=== PATIENT | male | born 1950 | race Caucasian/White ===

== ENCOUNTER 2017-10-04 14:38 | Inpatient (IN) | payer MEDICARE, OTHER ==
[~2017-10-04] VITALS: Ht 167.6 cm; Wt 73.2 kg
[~2017-10-04 14:38] MED LIST: ASPI81 PO; CORE25TA PO; DIGO0.12 PO; ENAL5TAB PO; LORA0.5T PO; PRAZ1 PO; QUET25 PO; SIMV20TA PO; TRAZ50TA4 PO; ZOLO50TA PO; [UNRECOGNIZED DRUG - CODE] PO
[2017-10-04 15:05] VITALS: BP 145/70; PULSE 104; RESP 18; TEMP 97.5; O2SAT 100
[2017-10-04 15:31] VITALS: BP 145/70; PULSE 104; RESP 18; TEMP 97.5; O2SAT 100
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
[2017-10-04 16:30] LABS: BASOPHIL # 0.1 TH/MM3 (0-0.2); BASOPHIL % 0.3 % (0.0-2.0); EOSINOPHIL % 0.1 % (0.0-4.0); HEMATOCRIT 35.9 % (39.0-51.0); LYMPH % 5.7 % (9.0-44.0); MEAN CELL VOLUME 88.7 FL (80.0-100.0); MEAN CORPUSCULAR HEMOGLOBIN 28.5 PG (27.0-34.0); MEAN CORPUSCULAR HGB CONC 32.1 % (32.0-36.0); MONO % 5.3 % (0.0-8.0); NEUT % 88.6 % (16.0-70.0); PLATELET COUNT 311 TH/MM3 (150-450); RED BLOOD COUNT 4.04 MIL/MM3 (4.50-5.90); RED CELL DISTRIBUTION WIDTH 16.6 % (11.6-17.2); WHITE BLOOD COUNT 16.9 TH/MM3 (4.0-11.0)
[2017-10-04 16:32] LABS: BACTERIA, URINE MANY /hpf; BLOOD, URINE SMALL (NEG); COMMENT (UR) CULTURE INDICATED; CULTURE IF INDICATED CULTURE INDICATED; GLUCOSE,URINE NEG (NEG); KETONE, URINE NEG (NEG); MUCUS URINE FEW /lpf (OCC); NITRITE,URINE NEG (NEG); PH, URINE 6.5 (5.0-8.5); URINE COLOR LIGHT-YELLOW (YELLW/STRAW)
[2017-10-04 16:33] LABS: HEMO FLAGS AUTO DIFF
[2017-10-04 16:40] LABS: ALKALINE PHOSPHATASE 137 U/L (45-117); ALT (GPT) 18 U/L (12-78); TOTAL BILIRUBIN ADULT 0.3 MG/DL (0.2-1.0)
[2017-10-04 16:46] LABS: ANION GAP 11 MEQ/L (5-15); AST (GOT) 19 U/L (15-37); BLOOD UREA NITROGEN 98 MG/DL (7-18); CHLORIDE 112 MEQ/L (98-107); GLOMERULAR FILTRATION RATE 14 ML/MIN (>89); POTASSIUM 5.8 MEQ/L (3.5-5.1); SODIUM (NA) 132 MEQ/L (136-145)
[2017-10-04 16:47] LABS: ALCOHOL LESS THAN 3 MG/DL (0-5)
[2017-10-04 17:04] LABS: BANDS 2 % (0-6); DOHLE BODIES PRESENT (NONE SEEN); NEUTROPHIL # MANUAL DIFF 15.4 TH/MM3 (1.8-7.7); PLATELET ESTIMATE SMEAR NORMAL (NORMAL); PLATELET MORPHOLOGY NORMAL (NORMAL); POLYS (SEG NEUTROPHILS) 89 % (16-70); SCAN/DIFF FINAL DIFF MANUAL; WBC DIFF SAMPLE 100
[2017-10-04] MEDS ORDERED: LEVOFLOXACIN 750 MG PREMIX INJ 150 ML IV ONE (17:15)
[2017-10-04] MEDS ORDERED: FOLI1TAB6 PO (17:18)
[2017-10-04] MEDS ORDERED: LIPI80TA PO (17:18)
[2017-10-04] MEDS ORDERED: [UNRECOGNIZED DRUG - CODE] TOPICAL (17:18)
[2017-10-04] MEDS ORDERED: VENTAER INH (17:18)
[2017-10-04] MEDS ORDERED: SYNT175T PO (17:18)
[2017-10-04] MEDS ORDERED: VITA100018 PO (17:18)
[2017-10-04] MEDS ORDERED: LANO0.12 PO (17:18)
[2017-10-04] MEDS ORDERED: NOVOINJ3 SQ (17:18)
[2017-10-04] MEDS ORDERED: METO-309 PO (17:18)
[2017-10-04] MEDS ORDERED: LANTUS2P SQ (17:18)
[2017-10-04] MEDS ORDERED: ASPI-183 PO (17:18)
[2017-10-04] MEDS ORDERED: SODIUM CHLORID 0.9% 500 ML INJ 500 ML IV ONE (18:00)
[2017-10-04] MEDS ORDERED: RESP: ALBUTEROL 2.5 MG/IPRATROPIUM 0.5 MG NEB (PRN) NEB (18:45)
[2017-10-04 18:56] VITALS: BP 129/76
[2017-10-04 19:00] VITALS: BP 129/60; PULSE 112; RESP 20; TEMP 97.4; O2SAT 100
--- NOTE | 2017-10-04 19:02 | RADRPT ---
EXAM DATE/TIME: 10/04/2017 17:47 [facility] COMPARISON: No previous studies available for comparison. INDICATIONS : Short of breath. MEDICAL HISTORY : unobtainable SURGICAL HISTORY : unobtainable ENCOUNTER: Initial ACUITY: 1 day PAIN SCORE: Non-responsive. LOCATION: Bilateral chest FINDINGS: A single view of the chest demonstrates the lungs to be symmetrically aerated without evidence of mas s, infiltrate or effusion. The cardiomediastinal contours are unremarkable. Osseous structures are intact. CONCLUSION: No acute disease. Andrea Roman MD on October 04, 2017 at 19:00 Board Certified Radiologist. This report was verified electronically.
[2017-10-04] MEDS ORDERED: SODIUM POLYSTYRENE SULFONATE 30 GM/120 ML ENEMA RECTAL ONE (19:18)
[2017-10-04] MEDS: INSULIN ASPART SUPPLEMENTAL SCALE SQ SCH (21:00)
[2017-10-04] MEDS: METOPROLOL TARTRATE 25 MG TAB PO SCH ×2 (21:00→23:39)
[2017-10-04 22:00] VITALS: PULSE 114
[2017-10-04] MEDS ORDERED: CALCIUM CHLORIDE 10% SOLN 1 GRAM/10 ML SYR IV PUSH ONE (22:15)
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
[2017-10-04] MEDS: SODIUM CHLORIDE 0.9% FLUSH 10 ML FLUSH IV FLUSH SCH (23:38)
[2017-10-04] MEDS: HEPARIN SODIUM - SQ 10,000 UNITS/ML VIAL SQ SCH (23:39)
[2017-10-05] VITALS (9 sets, daily range): BP systolic 110–141; BP diastolic 53–64; PULSE 96–115; RESP 17–20; TEMP 97.1–99.1; O2SAT 99–100
[2017-10-05] MEDS: SODIUM CHLOR 0.9% 1000 ML INJ 1,000 ML IV SCH ×3 (02:56→18:12)
[2017-10-05 03:10] LABS: AUTOMATED NEUTROPHIL # 11.1 TH/MM3 (1.8-7.7); BASOPHIL % 0.4 % (0.0-2.0); EOSINOPHIL % 0.2 % (0.0-4.0); HEMATOCRIT 30.8 % (39.0-51.0); HEMO FLAGS DIFF FINAL; LYMPH % 6.8 % (9.0-44.0); LYMPHOCYTE # 0.9 TH/MM3 (1.0-4.8); MEAN CELL VOLUME 88.2 FL (80.0-100.0); MEAN CORPUSCULAR HEMOGLOBIN 28.4 PG (27.0-34.0); MEAN CORPUSCULAR HGB CONC 32.2 % (32.0-36.0); MONO % 8.2 % (0.0-8.0); NEUT % 84.4 % (16.0-70.0); PLATELET COUNT 292 TH/MM3 (150-450); RED BLOOD COUNT 3.49 MIL/MM3 (4.50-5.90); RED CELL DISTRIBUTION WIDTH 16.3 % (11.6-17.2); WHITE BLOOD COUNT 13.1 TH/MM3 (4.0-11.0)
[2017-10-05 03:35] LABS: ALKALINE PHOSPHATASE 128 U/L (45-117); ALT (GPT) 17 U/L (12-78); ANION GAP 14 MEQ/L (5-15); AST (GOT) 10 U/L (15-37); BICARBONATE 8.9 MEQ/L (21.0-32.0); BLOOD UREA NITROGEN 107 MG/DL (7-18); CHLORIDE 115 MEQ/L (98-107); GLOMERULAR FILTRATION RATE 14 ML/MIN (>89); POTASSIUM 4.9 MEQ/L (3.5-5.1); SODIUM (NA) 138 MEQ/L (136-145); TOTAL BILIRUBIN ADULT 0.1 MG/DL (0.2-1.0)
--- NOTE | 2017-10-05 04:53 | EKG ---
Date Performed: 10/04/2017 Time Performed: 22:41:01 PTAGE: 67 years EKG: SINUS TACHYCARDIA ANTEROSEPTAL MYOCARDIAL INFARCTION , OF INDETERMINATE AGE ABNORMAL ECG Co mpared to prior electrocardiogram, Sinus tachycardia is now present PREVIOUS TRACING : 05/15/2014 11.01 DOCTOR: Aditya Zamora Interpretating Date/Time 10/05/2017 04:52:12
[2017-10-05] MEDS: INSULIN ASPART SUPPLEMENTAL SCALE SQ SCH ×4 (08:00→22:38)
[2017-10-05] MEDS: SODIUM CHLORIDE 0.9% FLUSH 10 ML FLUSH IV FLUSH SCH ×2 (09:00→21:00)
[2017-10-05] MEDS ORDERED: SODIUM CHLORID 0.9% 500 ML INJ 500 ML IV ONE (09:45)
[2017-10-05] MEDS: DIGOXIN 0.125 MG TAB PO SCH (10:16)
[2017-10-05] MEDS: METOPROLOL TARTRATE 25 MG TAB PO SCH ×2 (10:16→22:37)
[2017-10-05] MEDS: ASPIRIN 325 MG TAB PO SCH (10:16)
[2017-10-05] MEDS: HEPARIN SODIUM - SQ 10,000 UNITS/ML VIAL SQ SCH ×2 (10:16→22:37)
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
--- NOTE | 2017-10-05 11:29 | RADRPT ---
EXAM DATE/TIME: 10/05/2017 11:03 [place] COMPARISON: No previous studies available for comparison. EXTERNAL COMPARISON : [facility], CT ABDOMEN & PELVIS, March 25, 2015 INDICATIONS : Increased BUN/Creatinine. MEDICAL HISTORY : Hypothyroidism. Hypercholesterolemia. Chronic obstructive pulmonary disease. Dementia. Syncope. Myoca rdial infarction. Congestive heart failure. Irregular heartbeat. Hypertension. Sleep apnea. Kidney st ones. Bipolar disorder. Depression. Anxiety. PTSD. Herniated disc. Diabetes. Bladder cancer. Measles. SURGICAL HISTORY : Colostomy. Urostomy. ENCOUNTER: Initial ACUITY: 1 day PAIN SCORE: 0/10 LOCATION: Bilateral flank MEASUREMENTS: RIGHT KIDNEY: 11.6 x 5.2 x 5.8 cm LEFT KIDNEY: Nonvisualized cm FINDINGS: RIGHT KIDNEY: Renal cortex is normal in thickness and echotexture. No hydronephrosis, stone, or mass. LEFT KIDNEY: Nonvisualized potentially for technical reasons. BLADDER: Nonvisualized CONCLUSION: Nonvisualized left kidney potentially for technical reasons. No hydronephrosis on the right Yasir Garza MD on October 05, 2017 at 11:23 Board Certified Radiologist. This report was verified electronically.
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
[2017-10-05 17:05] LABS: HEMOGLOBIN A1a 1.4 %; HEMOGLOBIN A1b 0.9 %; HEMOGLOBIN Ao 78.6 %; HEMOGLOBIN F 1.4 %; HEMOGLOBIN LA1C 2.9 %; HEMOGLOBIN P3 6.9 %
--- NOTE | 2017-10-05 19:53 | PD.CONS ---
HPI Service Nephrology Consult Requested By Dr. Manzo Reason for Consult Acute renal failure on chronic kidney [facility] Care Phys[facility] History of Present Illness Patient is a 67-year-old male with history of bladder cancer status post cystectomy and urostomy, previous colostomy who has been Nieto acted then admitted to because of threatening behavior, patient had been hydrated ultrasound was ordered which did not showed left kidney the right kidney has no hydronephrosis and creatinine around 1.6 and currently at 4.23, patient is a poor historian he speaks Cypriot, I spoke to staff and usually he does speak Cymraes at times do not make sense, for tonight he will appear to be confused, could not tell me his age. Review of Systems ROS Limitations: Clinical Condition Past Family Social History Allergies: Coded Allergies: No Known Allergies (Verified Adverse Reaction, Unknown, 10/04/17) Past Medical History DM CAD s/p multi-vessel stenting chronic renal insufficiency CHF COPD colonic polyps s/p colectomy bladder cancer s/p cystectomy per EMR a history of dementia Cardiomyopathy Past Surgical History Colectomy Cystectomy Multivessel stenting Reported Medications Reported Meds & Active Scripts Active Reported Folic Acid 1 Mg Tablet 1 Mg PO DAILY Vitamin D3 (Cholecalciferol) 1,000 Unit Tab 2,000 Units PO DAILY Lipitor (Atorvastatin Calcium) 80 Mg Tab 40 Mg PO HS Ventolin Hfa 18 GM Inh (Albuterol Sulfate) 90 Mcg/Act Aer 1 Puff INH QID PRN Lantus Inj (Insulin Glargine) 1,000 Unit/10 Ml Vial 52 Units SQ BID Novolog Flexpen Inj (Insulin Aspart) 300 Unit/3 Ml Pen 35 Units SQ TID PRN Lopressor (Metoprolol Tartrate) 50 Mg Tab 25 Mg PO BID Lanoxin (Digoxin) 125 Mcg Tablet 125 Mcg PO DAILY Moisturizing Lotion (Vit E Acet/Glycerin/Dimeth/H2o) 473 Ml Lotion 1 Applic TOPICAL BID PRN Synthroid (Levothyroxine Sodium) 175 Mcg Tab 175 Mcg PO DAILY Take on empty stomach Aspirin 325 Mg Tab 325 Mg PO DAILY Active Ordered Medications Current Medications Medications (Trade) Dose Ordered Sig/[place]iena Route Start Time Stop Time Status Last Admin (Aspirin) 325 mg DAILY PO 10/05/17 09:00 10/05/17 10:16 (Lanoxin) 0.125 mg DAILY PO 10/05/17 09:00 10/05/17 10:16 (Lopressor) 25 mg BID PO 10/04/17 21:00 10/05/17 10:16 Sodium Chloride 1,000 ml @ 150 mls/hr Q6H40M IV 10/04/17 18:30 10/05/17 18:12 (NS Flush) 2 ml UNSCH PRN IV FLUSH 10/04/17 18:30 (NS Flush) 2 ml BID IV FLUSH 10/04/17 21:00 10/04/17 23:38 (Heparin Inj) 5,000 units Q12HR SQ 10/04/17 21:00 10/05/17 10:16 (Duoneb Neb) 1 ampule Q4HR NEB PRN NEB 10/04/17 18:45 (NovoLOG SUPPLEMENTAL SCALE) 1 ACHS SLIDING SCALE SQ 10/04/17 21:00 10/05/17 18:08 Levofloxacin/ Dextrose 50 ml @ 50 mls/hr Q48H IV 10/06/17 18:00 (Haldol Inj) 2 mg Q8H PRN IM 10/05/17 13:30 Family History Noncontributory Social History Not obtained Physical Exam Vital Signs Vital Signs Date Time Temp Pulse Resp B/P (MAP) Pulse Ox O2 Delivery O2 Flow Rate FiO2 10/05/17 15:58 98.0 99 17 110/55 (73) 99 10/05/17 12:30 96 10/05/17 12:00 99.1 107 17 133/59 (83) 99 10/05/17 08:19 97.1 112 19 141/62 (88) 99 10/05/17 08:00 115 10/05/17 07:30 Room Air 10/05/17 04:00 97.7 109 20 136/57 (83) 100 10/05/17 00:00 114 10/05/17 00:00 98.6 114 20 139/64 (89) 100 10/04/17 22:00 114 10/04/17 20:00 Room Air Physical Exam GENERAL: Elderly male who's appears confused and dry mouth SKIN: Warm and dry. HEAD: Normocephalic. EYES: No scleral icterus. No injection or drainage. NECK: Supple, trachea midline. No JVD or lymphadenopathy. CARDIOVASCULAR: Regular RESPIRATORY: Breath sounds equal bilaterally. No accessory muscle use. GASTROINTESTINAL: Abdomen soft, urostomy and colostomy bags EXTREMITIES: No cyanosis, or edema. NEUROLOGICAL: Awake, confused Laboratory Laboratory Tests Test 10/05/17 02:57 White Blood Count 13.1 Red Blood Count 3.49 Hemoglobin 9.9 Hematocrit 30.8 Mean Corpuscular Volume 88.2 Mean Corpuscular Hemoglobin 28.4 Mean Corpuscular Hemoglobin Concent 32.2 Red Cell Distribution Width 16.3 Platelet Count 292 Mean Platelet Volume 6.6 Neutrophils (%) (Auto) 84.4 Lymphocytes (%) (Auto) 6.8 Monocytes (%) (Auto) 8.2 Eosinophils (%) (Auto) 0.2 Basophils (%) (Auto) 0.4 Neutrophils # (Auto) 11.1 Lymphocytes # (Auto) 0.9 Monocytes # (Auto) 1.1 Eosinophils # (Auto) 0.0 Basophils # (Auto) 0.0 CBC Comment DIFF FINAL Differential Comment Blood Urea Nitrogen 109 Creatinine 4.23 Random Glucose 220 Calcium Level 9.0 Sodium Level 139 Potassium Level 4.9 Chloride Level 116 Carbon Dioxide Level 9.0 Total Protein 8.9 Albumin 2.9 Alkaline Phosphatase 128 Aspartate Amino Transf (AST/SGOT) 10 Alanine Aminotransferase (ALT/SGPT) 17 Total Bilirubin 0.1 Anion Gap 14 Estimat Glomerular Filtration Rate 14 Lactic Acid Level 0.8 Date/Time Source Procedure Growth Status 10/04/17 15:20 Urine Random Urine Urine Culture - Preliminary Gram Negative Tavo Resulted Result Diagram: 10/05/17 0257 10/05/17 0257 Imaging Last Impressions Renal Ultrasound 10/05/17 0000 Signed Impressions: Service Date/Time: Thursday, October 05, 2017 11:03 - CONCLUSION: Nonvisualized left kidney potentially for technical reasons. No hydronephrosis on the right Yasir Garza MD Chest X-Ray 10/04/17 0000 Signed Impressions: Service Date/Time: Wednesday, October 04, 2017 17:47 - CONCLUSION: No acute disease. Andrea Roman MD Assessment and Plan Problem List: (1) Acute on chronic renal insufficiency ICD Codes: N28.9 - Disorder of kidney and ureter, unspecified; N18.9 - Chronic kidney disease, unspecified Status: Acute Plan: Patient appears to be dehydrated and confused. I will switch the IV fluid to sodium bicarbonate based solutions IV fluid half normal saline with 100 mEq of sodium bicarbonate 150 cc an hour Follow BMP Continue to monitor urine output (2) Dementia ICD Codes: F03.90 - Unspecified dementia without behavioral disturbance Status: Chronic (3) Hyperchloremic metabolic acidosis ICD Codes: E87.2 - Acidosis Plan: Patient has urostomy and colostomy is losing bicarbonate and kidneys are trying to conserve acid-base balance by excreting hydrogen Ions in exchange chloride history observed Problem Qualifiers (1) Dementia: Brooks Bob MD Oct 05, 2017 19:53
[2017-10-05] MEDS: SODIUM BICARBONATE 8.4% INJ 100 MEQ in SODIUM CHLOR 0.45% 1000 ML INJ 1,000 ML IV SCH (23:04)
[2017-10-06] VITALS (13 sets, daily range): BP systolic 117–141; BP diastolic 56–63; PULSE 81–113; RESP 18–20; TEMP 97.8–98.9; O2SAT 99–100
[2017-10-06] MEDS: SODIUM BICARBONATE 8.4% INJ 100 MEQ in SODIUM CHLOR 0.45% 1000 ML INJ 1,000 ML IV SCH ×4 (05:49→23:37)
[2017-10-06 08:05] LABS: BASOPHIL % 0.5 % (0.0-2.0); EOSINOPHIL % 0.3 % (0.0-4.0); HEMATOCRIT 25.7 % (39.0-51.0); HEMO FLAGS DIFF FINAL; LYMPH % 9.5 % (9.0-44.0); LYMPHOCYTE # 0.8 TH/MM3 (1.0-4.8); MEAN CELL VOLUME 88.7 FL (80.0-100.0); MEAN CORPUSCULAR HEMOGLOBIN 30.6 PG (27.0-34.0); MEAN CORPUSCULAR HGB CONC 34.5 % (32.0-36.0); MONO % 11.6 % (0.0-8.0); NEUT % 78.1 % (16.0-70.0); PLATELET COUNT 228 TH/MM3 (150-450); RED CELL DISTRIBUTION WIDTH 16.5 % (11.6-17.2); WHITE BLOOD COUNT 8.9 TH/MM3 (4.0-11.0)
[2017-10-06 08:19] LABS: ALT (GPT) 13 U/L (12-78); ANION GAP 13 MEQ/L (5-15); AST (GOT) 9 U/L (15-37); BICARBONATE 9.2 MEQ/L (21.0-32.0); BLOOD UREA NITROGEN 108 MG/DL (7-18); CHLORIDE 123 MEQ/L (98-107); GLOMERULAR FILTRATION RATE 13 ML/MIN (>89); POTASSIUM 4.1 MEQ/L (3.5-5.1); SODIUM (NA) 145 MEQ/L (136-145)
[2017-10-06 08:20] LABS: ALKALINE PHOSPHATASE 102 U/L (45-117); TOTAL BILIRUBIN ADULT 0.2 MG/DL (0.2-1.0)
[2017-10-06] MEDS: HEPARIN SODIUM - SQ 10,000 UNITS/ML VIAL SQ SCH ×2 (09:11→20:33)
[2017-10-06] MEDS: SODIUM CHLORIDE 0.9% FLUSH 10 ML FLUSH IV FLUSH SCH ×2 (09:11→20:33)
[2017-10-06] MEDS: ASPIRIN 325 MG TAB PO SCH (09:11)
[2017-10-06] MEDS: METOPROLOL TARTRATE 25 MG TAB PO SCH ×2 (09:12→20:32)
[2017-10-06] MEDS: DIGOXIN 0.125 MG TAB PO SCH (09:12)
[2017-10-06] MEDS: INSULIN ASPART SUPPLEMENTAL SCALE SQ SCH ×4 (09:12→20:33)
--- NOTE | 2017-10-06 11:40 | HHI.FPPN ---
Subjective Remarks No acute events overnight. Remains afebrile. BP stable. HR ranging 110s-110s. Total input 2100cc. 1300 UOP + additional 700cc output from ostomy. Patient remains oriented only to self. He is able to answer some basic questions , but is often confabulating. Appears in no apparent distress. No agitation. (Sukhjinder Hamilton MD R2) Objective Vitals Vital Signs Date Time Temp Pulse Resp B/P (MAP) Pulse Ox O2 Delivery O2 Flow Rate FiO2 10/06/17 06:18 97.8 107 18 124/57 (79) 100 10/06/17 04:00 106 10/06/17 04:00 Room Air 10/06/17 00:10 98.3 113 18 141/60 (87) 100 10/06/17 00:00 Room Air 10/06/17 00:00 113 10/05/17 21:00 97.7 108 18 111/53 (72) 99 10/05/17 20:00 103 10/05/17 20:00 Room Air 10/05/17 15:58 98.0 99 17 110/55 (73) 99 10/05/17 12:30 96 10/05/17 12:00 99.1 107 17 133/59 (83) 99 I/O 10/05/17 10/05/17 10/05/17 10/06/17 10/06/17 10/06/17 07:00 15:00 23:00 07:00 15:00 23:00 Intake Total 640 ml 500 ml 1480 ml 120 ml Output Total 700 ml 400 ml 950 ml 650 ml Balance -60 ml 100 ml 530 ml -530 ml Intake Oral 480 ml 120 ml IV Total 640 ml 500 ml 1000 ml Output Urine Total 500 ml 650 ml 650 ml Stool Total 200 ml 400 ml 300 ml # Bowel Movements 1 (Sukhjinder Hamilton MD R2) Result Diagram: 10/06/1718 10/06/1718 Objective Remarks GENERAL: NAD, awake, not agitated NEURO: Alert. Oriented to self, disoriented to place and time. Speech is clear. sponge clipper grossly intact. Moving all extremities. SKIN: Warm and dry. No rashes or erythema. HEAD: Normocephalic. Atraumatic. EYES: EOMI. No scleral icterus. No injection or drainage. ENT: No nasal drainage. Moist mucous membranes. NECK: Supple, trachea midline. No JVD. CARDIOVASCULAR: Regular rate and rhythm without murmurs, rubs, or gallops. Peripheral pulses 2+. RESPIRATORY: Breath sounds clear to auscultation and equal bilaterally, without wheezes, rales, or rhonchi. No accessory muscle use. GASTROINTESTINAL: Abdomen soft, nontender, protuberant. No rebound tenderness. No guarding. Ostomy and urine output bag in place. MUSCULOSKELETAL: No lower extremity edema. (Sukhjinder Hamilton MD R2) A/P Assessment and Plan 67-year-old man admitted under Nieto act after reportedly displaying aggressive behavior towards his family. He is also being managed for sepsis due to a urinary tract infection as well as chronic renal insufficiency. Discharge Planning Discharge pending removal of Nieto act per psychiatry Awaiting further workup as documented below for chronic renal insufficiency Unclear timetable at this time (Sukhjinder Hamilton MD R2) Attending Attestation Patient seen and examined. Case reviewed and discussed with the resident team. Agree with plan of care as discussed with me and documented in the resident note. (Shima Manzo MD) Problem List: (1) Sepsis ICD Codes: A41.9 - Sepsis, unspecified organism Status: Acute Plan: Patient met criteria for sepsis on admission with elevated pulse and leukocytosis Source due to a urinary tract infection Lactate 0.8 s/p 500 cc NS bolus in the ED IVF switched to sodium bicarb at 150 cc/hr per nephrology recommendations (2) UTI (urinary tract infection) ICD Codes: N39.0 - Urinary tract infection, site not specified Status: Acute Plan: Large leuk esterase, many bacteria, 138 WBC, no comment on squam cells Urine culture growing > 100,000 col of both E. coli and Klebsiella, both pineda- sensitive Patient given dose of Levaquin 750 mg IV in the ED (first dose given 10/04) Will continue with renally dosed Levaquin 250 mg IV q48h based on the patients GFR for a total of 10-14 days (3) Acute on chronic renal insufficiency ICD Codes: N28.9 - Disorder of kidney and ureter, unspecified; N18.9 - Chronic kidney disease, unspecified Status: Acute Plan: Cr 4.14 on admission, baseline may be around 1.70 Possibly acute on chronic due to prerenal due to dehydration versus diabetic nephropathy vs intrinsic renal pathology, but urine specific gravity was 1.01 IV fluid hydration as above Avoid nephrotoxins as able Monitor I/Os Continue to trend renal function Nephrology consulted, appreciate recommendations Renal ultrasound with nonvisualized left kidney potentially for technical reasons. No hydronephrosis of the right kidney Will obtain abdomen/pelvis CT without contrast for further visualization Patient may be a candidate for dialysis, nephrology on board (4) Anemia ICD Codes: D64.9 - Anemia, unspecified Status: Acute Plan: Hgb 11.5 on admission, downtrending to 9.9 -> 8.9 today Normocytic May be a delusional component Chronic anemia may be due to ineffective hematopoiesis given chronic renal insufficiency Will continue to trend, work-up if Hgb continues to drop as further delusional anemia is unlikely (5) Dementia ICD Codes: F03.90 - Unspecified dementia without behavioral disturbance Status: Chronic Plan: Per discussion with Dr. Ragland, altered mental status from baseline may have been due to urosepsis Nieto act has been lifted Continue Haldol 2 mg IM q8h if needed for severe agitation (6) Hyperkalemia ICD Codes: E87.5 - Hyperkalemia Status: Resolved Plan: K+ 5.8 on admission Placed order for Kayexalate enema 30 g Calcium chloride 0.5 g IV once given Potassium now normalized, continue to monitor (7) Hyponatremia ICD Codes: E87.1 - Hypo-osmolality and hyponatremia Status: Resolved Plan: Normalized Continue to monitor (8) Nutrition, metabolism, and development symptoms ICD Codes: R63.8 - Other symptoms and signs concerning food and fluid intake Status: Acute Plan: Fluids: Na bicard as above Electrolytes: plan as above, continue to monitor Nutrition: Regular diet DVT ppx: Heparin 5,000 units sq q12h (Sukhjinder Hamilton MD R2) Problem Qualifiers (1) Dementia: Sukhjinder Hamilton MD R2 Oct 06, 2017 11:39 Shima Manzo MD Oct 07, 2017 09:03
--- NOTE | 2017-10-06 12:48 | HHI.PYPN ---
Subjective Remarks The patient is seen today for psychiatric reevaluation. Patient is alert, awake , reports good mood, he is in a good spirits, but pleasantly confused, unable to lay any meaningful information. Patient says that "you look like my son, do you know my son, do you study with him?". Patient started to speak in Ecuadorean, I tried to engaging him a conversation in Ecuadorean, the patient became tangential , out of topic, using mostly confabulatory information. No agitation, no aggressive behavior observed or have been reported since the patient arrived in the hospital. He has been taking his medications, cooperative, calm. Review of Systems Except as stated in HPI: all other systems reviewed are Neg Mental Status Examination Consciousness: Alert Orientation: Person Speech: Hesitant, Slow Language: Adequate Attention and Concentration: Adequate Memory: Impaired Affect: Blunt Thought Content: Bizarre thinking Hallucination Type: None Suicidal Ideation: No Suicidal Plan: No Suicidal Intention: No Homicidal Ideation: No Homicidal Plan: No Homicidal Intention: No Insight: Poor Judgment: Poor Results Labs Test 10/06/17 07:18 White Blood Count 8.9 TH/MM3 Red Blood Count 2.90 MIL/MM3 Hemoglobin 8.9 GM/DL Hematocrit 25.7 % Mean Corpuscular Volume 88.7 FL Mean Corpuscular Hemoglobin 30.6 PG Mean Corpuscular Hemoglobin Concent 34.5 % Red Cell Distribution Width 16.5 % Platelet Count 228 TH/MM3 Mean Platelet Volume 6.7 FL Neutrophils (%) (Auto) 78.1 % Lymphocytes (%) (Auto) 9.5 % Monocytes (%) (Auto) 11.6 % Eosinophils (%) (Auto) 0.3 % Basophils (%) (Auto) 0.5 % Neutrophils # (Auto) 7.0 TH/MM3 Lymphocytes # (Auto) 0.8 TH/MM3 Monocytes # (Auto) 1.0 TH/MM3 Eosinophils # (Auto) 0.0 TH/MM3 Basophils # (Auto) 0.0 TH/MM3 CBC Comment DIFF FINAL Differential Comment Blood Urea Nitrogen 108 MG/DL Creatinine 4.39 MG/DL Random Glucose 97 MG/DL Total Protein 7.2 GM/DL Albumin 2.4 GM/DL Calcium Level 8.6 MG/DL Alkaline Phosphatase 102 U/L Aspartate Amino Transf (AST/SGOT) 9 U/L Alanine Aminotransferase (ALT/SGPT) 13 U/L Total Bilirubin 0.2 MG/DL Sodium Level 145 MEQ/L Potassium Level 4.1 MEQ/L Chloride Level 123 MEQ/L Carbon Dioxide Level 9.2 MEQ/L Anion Gap 13 MEQ/L Estimat Glomerular Filtration Rate 13 ML/MIN Date/Time Source Procedure Growth Status 10/04/17 15:20 Urine Random Urine Urine Culture - Final Escherichia Coli Klebsiella Pneumoniae Complete Vitals/IOs Vital Signs Date Time Temp Pulse Resp B/P (MAP) Pulse Ox O2 Delivery O2 Flow Rate FiO2 10/06/17 06:18 97.8 107 18 124/57 (79) 100 10/06/17 04:00 Room Air Intake and Output 10/06/17 10/06/17 10/06/17 07:59 15:59 23:59 Intake Total 120 ml Output Total 650 ml Balance -530 ml Assessment & Plan Problem List: (1) Dementia ICD Codes: F03.90 - Unspecified dementia without behavioral disturbance Assessment & Plan Estimated LOS: days Justification for Cont. Inpt. Other than profound dementia, the patient does not present any neuropsychiatric symptoms that requires an immediate psychiatric intervention. He does not meet criteria for involuntary psychiatric admission. Nieto act will be lifted. Problem Qualifiers (1) Dementia: Leo Ragland MD Oct 06, 2017 12:47
[2017-10-06] MEDS ORDERED: LEVOFLOXACIN 250 MG PREMIX INJ 50 ML IV SCH (18:00)
--- NOTE | 2017-10-06 19:38 | HHI.NPPN ---
Subjective History of Present Illness Patient is 67-year-old male with history of urostomy and a cancer status post cystectomy not in acute renal failure Objective Data Data 10/06/17 10/07/17 19:00 07:00 Intake Total 480 ml Output Total 880 ml Balance -400 ml Intake Oral 480 ml Output Urine Total 850 ml Stool Total 30 ml Vital Signs Date Time Temp Pulse Resp B/P (MAP) Pulse Ox O2 Delivery O2 Flow Rate FiO2 10/06/17 16:00 97.8 86 18 133/63 (86) 100 10/06/17 15:59 81 10/06/17 12:06 93 10/06/17 12:00 98.3 90 18 138/62 (87) 99 10/06/17 08:15 Room Air 10/06/17 08:00 98.9 109 18 117/58 (77) 100 10/06/17 06:18 97.8 107 18 124/57 (79) 100 10/06/17 04:00 106 10/06/17 04:00 Room Air 10/06/17 00:10 98.3 113 18 141/60 (87) 100 10/06/17 00:00 Room Air 10/06/17 00:00 113 10/05/17 21:00 97.7 108 18 111/53 (72) 99 10/05/17 20:00 103 10/05/17 20:00 Room Air -: 10/06/17 0718 10/06/17 0718 Physical Exam General Appearance: Well Developed Neck Neck Exam: Neck Supple Pulmonary Resp Exam: Decreased Bases Cardiology CV Exam: Regular Gastrointestinal/Abdomen GI Exam: Soft (urostomy and colostomy in place) Extremeties Extremities Exam: No Edema Neurologic Neuro Exam: Alert Assessment/Plan Problem List: (1) Acute on chronic renal insufficiency ICD Codes: N28.9 - Disorder of kidney and ureter, unspecified; N18.9 - Chronic kidney disease, unspecified Status: Acute Plan: As discussed the use get CT scan to evaluate if there is any obstruction. Function has not improved there is a possibility of dialysis continue IV fluid half normal saline with 100 mEq of sodium bicarbonate 150 cc an hour Follow BMP Continue to monitor urine output (2) Dementia ICD Codes: F03.90 - Unspecified dementia without behavioral disturbance Status: Chronic (3) Hyperchloremic metabolic acidosis ICD Codes: E87.2 - Acidosis Plan: Patient has urostomy and colostomy is losing bicarbonate and kidneys are trying to conserve acid-base balance by excreting hydrogen Ions in exchange chloride history observed Problem Qualifiers (1) Dementia: Brooks Bob MD Oct 06, 2017 19:38
--- NOTE | 2017-10-06 20:47 | RADRPT ---
EXAM DATE/TIME: 10/06/2017 14:54 [facility] COMPARISON: No previous studies available for comparison. INDICATIONS : Generalized abdominal pain, renal failure. ORAL CONTRAST: No oral contrast ingested. RADIATION DOSE: 8.30 CTDIvol (mGy) MEDICAL HISTORY : Dementia. Cardiovascular disease. Hypertension. Bladder cancer, COPD SURGICAL HISTORY : None. ENCOUNTER: Initial ACUITY: 1 day PAIN SCALE: 5/10 LOCATION: Abdomen TECHNIQUE: Volumetric scanning of the abdomen and pelvis was performed. Using automated exposure control and adjustment of the mA and/or kV according to patient size, radiation dose was kept as low as reasonably achievable to obtain optimal diagnostic quality images. DICOM format image data is av ailable electronically for review and comparison. FINDINGS: There is a focal area of low density seen at the left lateral aspect of the spleen mago uring approximately 4.9 x 4.1 x 5.2 cm. This is nonspecific. The liver, pancreas and right adrenal gland appear normal. The left adrenal gland is not seen. The p atient appears to be status post left nephrectomy. The right kidney demonstrates mild fullness of th e renal collecting system and proximal ureter. There appears to be an ileostomy in the right lower q uadrant. The patient is status post cystectomy. The patient also has a colostomy in the left lower quadrant. Significant bowel dilatation or surrounding inflammatory change is not seen. There are sca ttered colonic diverticula present. Atherosclerotic calcifications are seen at the aorta. No aneury sm is seen. The lung bases are clear. The bony structures are unremarkable. CONCLUSION: 1. Status post cystectomy. 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 2. Absence of the left kidney. 3. Mild fullness of the right renal collecting system. 4. 5 cm low density area seen in the left lateral aspect of the spleen. This is nonspecific. This c ould represent a process such as an infarct. Neoplastic disease cannot be ruled out. Yasir Wong MD on October 06, 2017 at 20:30 Board Certified Radiologist. This report was verified electronically.
[2017-10-07] VITALS (11 sets, daily range): BP systolic 114–157; BP diastolic 56–69; PULSE 77–114; RESP 18–20; TEMP 98.5–100.3; O2SAT 99–100
[2017-10-07] MEDS: SODIUM BICARBONATE 8.4% INJ 100 MEQ in SODIUM CHLOR 0.45% 1000 ML INJ 1,000 ML IV SCH (06:55)
[2017-10-07] MEDS: DIGOXIN 0.125 MG TAB PO SCH (08:20)
[2017-10-07] MEDS: ASPIRIN 325 MG TAB PO SCH (08:20)
[2017-10-07] MEDS: METOPROLOL TARTRATE 25 MG TAB PO SCH ×2 (08:20→20:32)
[2017-10-07] MEDS: HEPARIN SODIUM - SQ 10,000 UNITS/ML VIAL SQ SCH ×2 (08:21→20:32)
[2017-10-07] MEDS: INSULIN ASPART SUPPLEMENTAL SCALE SQ SCH ×4 (08:21→20:33)
[2017-10-07] MEDS: SODIUM CHLORIDE 0.9% FLUSH 10 ML FLUSH IV FLUSH SCH ×2 (08:22→20:32)
[2017-10-07 08:44] LABS: MEAN CELL VOLUME 86.8 FL (80.0-100.0); MEAN CORPUSCULAR HEMOGLOBIN 29.5 PG (27.0-34.0); MEAN CORPUSCULAR HGB CONC 33.9 % (32.0-36.0); PLATELET COUNT 206 TH/MM3 (150-450); RED BLOOD COUNT 2.65 MIL/MM3 (4.50-5.90); RED CELL DISTRIBUTION WIDTH 16.6 % (11.6-17.2); REVIEW FLAG FINAL; WHITE BLOOD COUNT 11.5 TH/MM3 (4.0-11.0)
[2017-10-07 09:19] LABS: BICARBONATE 10.3 MEQ/L (21.0-32.0)
--- NOTE | 2017-10-07 11:55 | HHI.FPPN ---
Subjective Remarks No acute events overnight. Tmax 100.3 at 08:00 this morning. Vitals stable. 2380 cc of UOP with additional 230cc noted from ostomy. Patient awake this morning. Able to answer a few questions and follow some basic commands. Primarily still confabulating. (Sukhjinder Hamilton MD R2) Objective Vitals Vital Signs Date Time Temp Pulse Resp B/P (MAP) Pulse Ox O2 Delivery O2 Flow Rate FiO2 10/07/17 08:03 100.3 105 20 114/57 (76) 100 10/07/17 08:00 Room Air 10/07/17 07:58 109 10/07/17 04:11 114 10/07/17 04:00 Room Air 10/07/17 04:00 99.3 107 18 125/60 (81) 99 10/07/17 00:06 98.7 85 20 137/60 (85) 100 10/07/17 00:00 Room Air 10/06/17 23:30 86 10/06/17 20:35 Room Air 10/06/17 20:22 92 10/06/17 20:00 98.1 94 20 123/56 (78) 100 10/06/17 16:00 97.8 86 18 133/63 (86) 100 10/06/17 15:59 81 10/06/17 12:06 93 10/06/17 12:00 98.3 90 18 138/62 (87) 99 I/O 10/06/17 10/06/17 10/06/17 10/07/17 10/07/17 10/07/17 07:00 15:00 23:00 07:00 15:00 23:00 Intake Total 120 ml 1100 ml 530 ml 1100 ml Output Total 650 ml 880 ml 1730 ml Balance -530 ml 1100 ml -350 ml -630 ml Intake Oral 120 ml 480 ml IV Total 1100 ml 50 ml 1100 ml Output Urine Total 650 ml 850 ml 1530 ml Stool Total 30 ml 200 ml # Bowel Movements 1 (Sukhjinder Hamilton MD R2) Result Diagram: 10/07/17 0654 10/07/17 0654 Objective Remarks GENERAL: NAD, awake, not agitated NEURO: Alert. Oriented to self, disoriented to place and time. Speech is clear. pulley worker grossly intact. Moving all extremities. SKIN: Warm and dry. No rashes or erythema. HEAD: Normocephalic. Atraumatic. EYES: EOMI. No scleral icterus. No injection or drainage. ENT: No nasal drainage. Moist mucous membranes. NECK: Supple, trachea midline. No JVD. CARDIOVASCULAR: Regular rate and rhythm without murmurs, rubs, or gallops. Peripheral pulses 2+. RESPIRATORY: Breath sounds clear to auscultation and equal bilaterally, without wheezes, rales, or rhonchi. No accessory muscle use. GASTROINTESTINAL: Abdomen soft, nontender, nondistended. No rebound tenderness. No guarding. Ostomy and urine output bag in place. MUSCULOSKELETAL: No lower extremity edema. (Sukhjinder Hamilton MD R2) A/P Assessment and Plan 67-year-old man admitted under Nieto act after reportedly displaying aggressive behavior towards his family. He is also being managed for sepsis due to a urinary tract infection as well as chronic renal insufficiency. Discharge Planning Awaiting further workup, unclear timetable at this time (Sukhjinder Hamilton MD R2) Attending Attestation Patient seen and examined. Case reviewed and discussed with the resident team. Agree with plan of care as discussed with me and documented in the resident note. (Shima Manzo MD) Problem List: (1) Sepsis ICD Codes: A41.9 - Sepsis, unspecified organism Status: Acute Plan: Patient met criteria for sepsis on admission with elevated pulse and leukocytosis Source due to a urinary tract infection Lactate 0.8 s/p 500 cc NS bolus in the ED IVF switched to D5-Na bicarb per recommendations of nephrology, 150 cc/hr Repeat CXR and UA given patient with temp of 100.3, tachycardia, leukocytosis (2) UTI (urinary tract infection) ICD Codes: N39.0 - Urinary tract infection, site not specified Status: Acute Plan: Large leuk esterase, many bacteria, 138 WBC, no comment on squam cells Urine culture growing > 100,000 col of both E. coli and Klebsiella, both pineda- sensitive Patient given dose of Levaquin 750 mg IV in the ED (first dose given 10/04) Will continue with renally dosed Levaquin, transitioned to oral for dose on 10/08 with 250 mg PO q48h based on the patients GFR for a total of 10-14 days Repeat UA with culture if needed (3) Anemia ICD Codes: D64.9 - Anemia, unspecified Status: Acute Plan: Hgb 11.5 on admission, -> 9.9 -> 8.9 -> 7.8 Normocytic Consider acute GI bleed vs other acute blood loss anemia Will obtain hemoccult Consider hematology consult vs gastroenterology consult if hemoccult positive Chronic anemia may be due to ineffective hematopoiesis given chronic renal insufficiency (4) Acute on chronic renal insufficiency ICD Codes: N28.9 - Disorder of kidney and ureter, unspecified; N18.9 - Chronic kidney disease, unspecified Status: Acute Plan: Cr 4.14 on admission, baseline may be around 1.70 Possibly acute on chronic due to prerenal due to dehydration versus diabetic nephropathy vs intrinsic renal pathology, but urine specific gravity was 1.01 IV fluid hydration as above Avoid nephrotoxins as able Monitor I/Os Continue to trend renal function Nephrology consulted, appreciate recommendations Renal ultrasound with nonvisualized left kidney potentially for technical reasons. 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 Low density area in the left lateral aspect of the spleen Patient may be a candidate for dialysis, nephrology on board (5) Dementia ICD Codes: F03.90 - Unspecified dementia without behavioral disturbance Status: Chronic Plan: Per discussion with Dr. Ragland, altered mental status from baseline may have been due to urosepsis Nieto act has been lifted Continue Haldol 2 mg IM q8h if needed for severe agitation (6) Hyperkalemia ICD Codes: E87.5 - Hyperkalemia Status: Resolved Plan: K+ 5.8 on admission Potassium had normalized, now low this AM at 3.0 Will replete orally (7) Nutrition, metabolism, and development symptoms ICD Codes: R63.8 - Other symptoms and signs concerning food and fluid intake Status: Acute Plan: Fluids: sodium bicarbonate as above Electrolytes: plan as above, continue to monitor Nutrition: Regular diet DVT ppx: Heparin 5,000 units sq q12h (Sukhjinder Hamilton MD R2) Problem Qualifiers (1) Dementia: Sukhjinder Hamilton MD R2 Oct 07, 2017 11:55 Shima Manzo MD Oct 07, 2017 16:39
--- NOTE | 2017-10-07 12:27 | RADRPT ---
EXAM DATE/TIME: 10/07/2017 11:53 [facility] COMPARISON: CHEST SINGLE AP, October 04, 2017, 17:47. INDICATIONS : Short of breath. Pneumonia. MEDICAL HISTORY : Hypothyroidism. Hypercholesterolemia. Chronic obstructive pulmonary disease. Dementia. Syncope. Myoca rdial infarction. Congestive heart failure. Irregular heartbeat. Hypertension. Sleep apnea. Kidney st ones. Bipolar disorder. Depression. Anxiety. PTSD. Herniated disc. Diabetes. Bladder cancer. Measles. SURGICAL HISTORY : Colostomy. Urostomy. ENCOUNTER: Subsequent ACUITY: 4 - 6 days PAIN SCORE: 0/10 LOCATION: chest FINDINGS: A single view of the chest demonstrates the lungs to be symmetrically aerated without evidence of mas s, infiltrate or effusion. The cardiomediastinal contours are unremarkable. Osseous structures are intact. CONCLUSION: No acute disease. Chuy Penny MD FACR on October 07, 2017 at 12:25 Board Certified Radiologist. This report was verified electronically.
[2017-10-07 12:41] LABS: BACTERIA, URINE OCC /hpf; BLOOD, URINE SMALL (NEG); COMMENT (UR) CULTURE INDICATED; CULTURE IF INDICATED CULTURE INDICATED; GLUCOSE,URINE NEG (NEG); KETONE, URINE NEG (NEG); MUCUS URINE FEW /lpf (OCC); NITRITE,URINE NEG (NEG); URINE COLOR LIGHT-YELLOW (YELLW/STRAW)
[2017-10-07] MEDS: SODIUM BICARBONATE 8.4% INJ 100 MEQ in DEXTROSE 5% IN WATE 1000ML INJ 1,000 ML IV SCH ×4 (14:24→21:54)
[2017-10-07] MEDS: OCTREOTIDE INJ 50 MCG/ML AMP IV PUSH SCH ×2 (14:59→21:54)
--- NOTE | 2017-10-07 16:03 | HHI.NPPN ---
Subjective History of Present Illness Patient is 67-year-old male with history of urostomy and a cancer status post cystectomy not in acute renal failure Objective Data Data 10/07/17 10/08/17 19:00 07:00 Intake Total 1000 ml Balance 1000 ml IV Total 1000 ml Vital Signs Date Time Temp Pulse Resp B/P (MAP) Pulse Ox O2 Delivery O2 Flow Rate FiO2 10/07/17 12:07 98.5 89 20 115/56 (75) 99 10/07/17 11:33 85 10/07/17 08:03 100.3 105 20 114/57 (76) 100 10/07/17 08:00 Room Air 10/07/17 07:58 109 10/07/17 04:11 114 10/07/17 04:00 Room Air 10/07/17 04:00 99.3 107 18 125/60 (81) 99 10/07/17 00:06 98.7 85 20 137/60 (85) 100 10/07/17 00:00 Room Air 10/06/17 23:30 86 10/06/17 20:35 Room Air 10/06/17 20:22 92 10/06/17 20:00 98.1 94 20 123/56 (78) 100 -: 10/07/17 0654 10/07/17 0654 Microbiology 10/07/17 Stool Occult Blood (BERNARD) - Final, Complete HEMOCCULT POSITIVE 10/07/17 Urine Culture, Received Pending Physical Exam General Appearance: Well Developed Neck Neck Exam: Neck Supple Pulmonary Resp Exam: Decreased Bases Cardiology CV Exam: Regular Gastrointestinal/Abdomen GI Exam: Soft (urostomy and colostomy in place) Extremeties Extremities Exam: No Edema Neurologic Neuro Exam: Alert Assessment/Plan Problem List: (1) Acute on chronic renal insufficiency ICD Codes: N28.9 - Disorder of kidney and ureter, unspecified; N18.9 - Chronic kidney disease, unspecified Status: Acute Plan: Patient has output however he does have GI losses and we will try slow down using Sandostatin IV fluid switched to D5W with 150 mEq/L of sodium bicarbonate Follow BMP Continue to monitor urine output (2) Dementia ICD Codes: F03.90 - Unspecified dementia without behavioral disturbance Status: Chronic (3) Hyperchloremic metabolic acidosis ICD Codes: E87.2 - Acidosis Plan: Patient has urostomy and colostomy is losing bicarbonate Problem Qualifiers (1) Dementia: Brooks Bob MD Oct 07, 2017 16:03
--- NOTE | 2017-10-07 16:05 | PD.CONS ---
HPI History of Present Illness This is a 67 year old male with hx DM, CAD, CHF, COPD, bladder ca s/p cystectomy ,renal insufficiency, colectomy and ostomy, dementia who was fitch acted from nearby [place] [facility] and brought to [facility] for psych eval. Fitch act since lifted. GI consulted for poss GIB. Pt had hgb 11.5 on admission and has dropped to 7.8. NO obvious bleeding but stool was pos for occult blood. Hx obtained from , pt noncontributory. She denies knowledge of blood in stool, black tarry stool, hematemesis, ulcers. He had colonoscopy and EGD at a clinic in [facility] but she cannot remember when or who did procedures. Colonoscopy findings were polyps and hemorrhoids. He has had anemia since his diagnosis of bladder ca, and has received iron infusions from Dr Patricio but is unsure of timing. CT showed hypodense area spleen poss infarct. (Calli Vang) PFSH Past Medical History DM CAD CHF COPD dementia agent orange bladder ca ?fistula Past Surgical History cystectomy colectomy and ostomy (Calli Vang) Coded Allergies: No Known Allergies (Verified Adverse Reaction, Unknown, 10/04/17) Family History noncontributory Social History noncontributory (Calli Vang) Review of Systems ROS noncontributory (Calli Vang) GI Exam Vitals I&O Vital Signs Date Time Temp Pulse Resp B/P (MAP) Pulse Ox O2 Delivery O2 Flow Rate FiO2 10/07/17 12:07 98.5 89 20 115/56 (75) 99 10/07/17 11:33 85 10/07/17 08:03 100.3 105 20 114/57 (76) 100 10/07/17 08:00 Room Air 10/07/17 07:58 109 10/07/17 04:11 114 10/07/17 04:00 Room Air 10/07/17 04:00 99.3 107 18 125/60 (81) 99 10/07/17 00:06 98.7 85 20 137/60 (85) 100 10/07/17 00:00 Room Air 10/06/17 23:30 86 10/06/17 20:35 Room Air 10/06/17 20:22 92 10/06/17 20:00 98.1 94 20 123/56 (78) 100 10/06/17 16:00 97.8 86 18 133/63 (86) 100 10/06/17 15:59 81 I/O 10/06/17 10/06/17 10/06/17 10/07/17 10/07/17 10/07/17 07:00 15:00 23:00 07:00 15:00 23:00 Intake Total 120 ml 1100 ml 530 ml 1100 ml 1000 ml Output Total 650 ml 880 ml 1730 ml Balance -530 ml 1100 ml -350 ml -630 ml 1000 ml Intake Oral 120 ml 480 ml IV Total 1100 ml 50 ml 1100 ml 1000 ml Output Urine Total 650 ml 850 ml 1530 ml Stool Total 30 ml 200 ml # Bowel Movements 1 Imaging Last Impressions Chest X-Ray 10/07/17 0000 Signed Impressions: Service Date/Time: Saturday, October 07, 2017 11:53 - CONCLUSION: No acute disease. Chuy Penny MD FACR Abdomen/Pelvis CT 10/06/17 0000 Signed Impressions: Service Date/Time: September 14:54 - CONCLUSION: 1. Status post cystectomy. 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 2. Absence of the left kidney. 3. Mild fullness of the right renal collecting system. 4. 5 cm low density area seen in the left lateral aspect of the spleen. This is nonspecific. This could represent a process such as an infarct. Neoplastic disease cannot be ruled out. Yasir Wong MD Renal Ultrasound 10/05/17 0000 Signed Impressions: Service Date/Time: Thursday, October 05, 2017 11:03 - CONCLUSION: Nonvisualized left kidney potentially for technical reasons. No hydronephrosis on the right Yasir Garza MD Laboratory Test 10/07/17 06:54 10/07/17 12:00 White Blood Count 11.5 TH/MM3 Red Blood Count 2.65 MIL/MM3 Hemoglobin 7.8 GM/DL Hematocrit 23.0 % Mean Corpuscular Volume 86.8 FL Mean Corpuscular Hemoglobin 29.5 PG Mean Corpuscular Hemoglobin Concent 33.9 % Red Cell Distribution Width 16.6 % Platelet Count 206 TH/MM3 Mean Platelet Volume 7.0 FL Blood Urea Nitrogen 105 MG/DL Creatinine 4.52 MG/DL Random Glucose 124 MG/DL Calcium Level 7.9 MG/DL Sodium Level 148 MEQ/L Potassium Level 3.0 MEQ/L Chloride Level 121 MEQ/L Carbon Dioxide Level 10.3 MEQ/L Anion Gap 17 MEQ/L Estimat Glomerular Filtration Rate 13 ML/MIN Urine Color LIGHT-YELLOW Urine Turbidity CLEAR Urine pH 7.0 Urine Specific [place] 1.010 Urine Protein 30 mg/dL Urine Glucose (UA) NEG mg/dL Urine Ketones NEG mg/dL Urine Occult Blood SMALL Urine Nitrite NEG Urine Bilirubin NEG Urine Urobilinogen LESS THAN 2.0 MG/DL Urine Leukocyte Esterase MOD Urine RBC 1 /hpf Urine WBC 14 /hpf Urine Amorphous Sediment OCC Urine Bacteria OCC /hpf Urine Mucus FEW /lpf Microscopic Urinalysis Comment CULTURE INDICATED Date/Time Source Procedure Growth Status 10/07/17 12:00 Stool Stool Stool Occult Blood (BERNARD) - Final HEMOCCULT POSITIVE Complete 10/07/17 12:00 Urine Other Urine Culture Pending Received Physical Examination HEENT: PERRL; normocephalic; atraumatic; no jaundice. CHEST: CTA CARDIAC: RRR + murmur ABDOMEN: Soft, nondistended, diffuse TTP; no hepatosplenomegaly; bowel sounds are present in all four quadrants. dark brown soft stool in ostomy EXTREMITIES: No clubbing, cyanosis, or edema. SKIN: Normal; no rash; no jaundice. 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 likely also multifactorial NO obvious bleeding. no prior hx GIB. not on blood thinners CT showing hypodense area spleen, poss infarct. - sepsis UTI, acute on chronic renal insufficiency, hx bladder ca per primary PLAN - EGD/colonoscopy, timing TBD - monitor HH - transfuse if needed - supportive care - further recs to follow This pt seen by myself and Dr Cameron and this note is written on her behalf (Calli Vang) Physician Comments seen, examined agree with above abdominal us along with us mesenteric vessels to further evaluate abnormal area in spleen and mesenteric vessels we will monitor hb closely egd/colon on Tuesday unless indicated otherwise if active bleeding-bleeding scan and endoscopy on emergency obtain records Jigna if possible (Brenna Cameron MD) Calli Vang Oct 07, 2017 16:05 Brenna Cameron MD Oct 07, 2017 20:01
[2017-10-07] MEDS ORDERED: POTASSIUM CHLORIDE 10 MEQ CONTROLLED RELEASE TAB PO ONE (16:15)
[2017-10-08] VITALS (9 sets, daily range): BP systolic 110–150; BP diastolic 58–85; PULSE 52–80; RESP 16–20; TEMP 97.4–99.8; O2SAT 96–99
[2017-10-08] MEDS: ACETAMINOPHEN 325 MG TAB PO PRN (02:00)
[2017-10-08] MEDS: SODIUM BICARBONATE 8.4% INJ 100 MEQ in DEXTROSE 5% IN WATE 1000ML INJ 1,000 ML IV SCH ×6 (05:36→22:29)
[2017-10-08] MEDS: OCTREOTIDE INJ 50 MCG/ML AMP IV PUSH SCH ×3 (06:03→22:32)
[2017-10-08] MEDS: DIGOXIN 0.125 MG TAB PO SCH (09:32)
[2017-10-08] MEDS: ASPIRIN 325 MG TAB PO SCH (09:32)
[2017-10-08] MEDS: INSULIN ASPART SUPPLEMENTAL SCALE SQ SCH ×4 (09:32→22:38)
[2017-10-08] MEDS: METOPROLOL TARTRATE 25 MG TAB PO SCH ×2 (09:32→22:06)
[2017-10-08] MEDS: HEPARIN SODIUM - SQ 10,000 UNITS/ML VIAL SQ SCH ×2 (09:33→22:07)
[2017-10-08] MEDS: SODIUM CHLORIDE 0.9% FLUSH 10 ML FLUSH IV FLUSH SCH ×2 (09:33→22:06)
--- NOTE | 2017-10-08 09:40 | HHI.FPPN ---
Subjective Remarks Resident paged at 1:40 overnight for fever of 100.4. Administered Tylenol and blood cultures ordered. Afebrile this AM. VSS. Pt lying in bed, very pleasant. Alert and awake. Unable to answer questions. Perked up when I set up his breakfast. No Haldol administered overnight per chart review. (Bela Cortes MD R1) Objective Vitals Vital Signs Date Time Temp Pulse Resp B/P (MAP) Pulse Ox O2 Delivery O2 Flow Rate FiO2 10/08/17 08:00 98.5 78 20 110/59 (76) 96 10/08/17 05:10 67 10/08/17 04:00 Room Air 10/08/17 04:00 99.0 78 20 136/61 (86) 98 10/08/17 00:16 80 10/08/17 00:00 Room Air 10/08/17 00:00 99.8 74 20 150/64 (92) 98 10/07/17 20:35 Room Air 10/07/17 20:05 86 10/07/17 20:00 99.1 79 20 151/64 (93) 100 10/07/17 16:03 84 10/07/17 16:02 98.9 77 20 157/69 (98) 10/07/17 12:07 98.5 89 20 115/56 (75) 99 10/07/17 11:33 85 I/O 10/07/17 10/07/17 10/07/17 10/08/17 10/08/17 10/08/17 07:00 15:00 23:00 07:00 15:00 23:00 Intake Total 1100 ml 1000 ml 1527 ml Output Total 1730 ml 755 ml 1125 ml Balance -630 ml 1000 ml -755 ml 402 ml Intake Oral 360 ml IV Total 1100 ml 1000 ml 1167 ml Output Urine Total 1530 ml 625 ml Stool Total 200 ml 130 ml 1125 ml (Bela Cortes MD R1) Result Diagram: 10/07/17 0654 10/07/17 0654 Objective Remarks GENERAL: NAD, awake, not agitated NEURO: Alert. Oriented to self, disoriented to place and time. Speech is clear. floor finisher helper grossly intact. Moving all extremities. SKIN: Warm and dry. No rashes or erythema. HEAD: Normocephalic. Atraumatic. EYES: EOMI. No scleral icterus. No injection or drainage. ENT: No nasal drainage. Moist mucous membranes. NECK: Supple, trachea midline. No JVD. CARDIOVASCULAR: Regular rate and rhythm without murmurs, rubs, or gallops. Peripheral pulses 2+. RESPIRATORY: Breath sounds clear to auscultation and equal bilaterally, without wheezes, rales, or rhonchi. No accessory muscle use. GASTROINTESTINAL: Abdomen soft, nontender, nondistended. No rebound tenderness. No guarding. Ostomy and urine output bag in place. MUSCULOSKELETAL: No lower extremity edema. (Bela Cortes MD R1) A/P Assessment and Plan 67-year-old man admitted under Nieto act after reportedly displaying aggressive behavior towards his family. He is also being managed for sepsis due to a urinary tract infection as well as chronic renal insufficiency. Discharge Planning Awaiting further workup, unclear timetable at this time (Bela Cortes MD R1) Attending Attestation Patient seen and examined. Case reviewed and discussed with the resident team. Agree with plan of care as discussed with me and documented in the resident note. (Shima Manzo MD) Problem List: (1) Sepsis ICD Codes: A41.9 - Sepsis, unspecified organism Status: Acute Plan: Patient met criteria for sepsis on admission with elevated pulse and leukocytosis Source due to a urinary tract infection Lactate 0.8 s/p 500 cc NS bolus in the ED IVF switched to D5-Na bicarb per recommendations of nephrology, 150 cc/hr Repeat CXR 10/07 normal (2) UTI (urinary tract infection) ICD Codes: N39.0 - Urinary tract infection, site not specified Status: Acute Plan: Large leuk esterase, many bacteria, 138 WBC, no comment on squam cells Repeat UA reveal moderate leuk esterase, occ bacteria Urine culture growing > 100,000 col of both E. coli and Klebsiella, both pineda- sensitive Repeat preliminary urine culture growing MRSA, and group D enterococcus Patient given dose of Levaquin 750 mg IV in the ED (first dose given 10/04) Will continue with renally dosed Levaquin, transitioned to oral for dose on 10/08 with 250 mg PO q48h based on the patients GFR for a total of 10-14 days ID consulted, appreciate recs (3) Anemia ICD Codes: D64.9 - Anemia, unspecified Status: Acute Plan: Consider acute GI bleed vs other acute blood loss anemia Hemoccult positive GI consulted, recs appreciated PPI IV added EGD/colonoscopy possibly Tuesday Hgb 11.5 on admission, -> 9.9 -> 8.9 -> 7.8-->7.2 2 units of PRBCs ordered, H/H ordered post-transfusion If active bleeding-bleeding scan and endoscopy on emergency (4) Acute on chronic renal insufficiency ICD Codes: N28.9 - Disorder of kidney and ureter, unspecified; N18.9 - Chronic kidney disease, unspecified Status: Acute Plan: Cr 4.14 on admission, baseline may be around 1.70 Possibly acute on chronic due to prerenal due to dehydration versus diabetic nephropathy vs intrinsic renal pathology, but urine specific gravity was 1.01 IV fluid hydration as above Avoid nephrotoxins as able Monitor I/Os Continue to trend renal function Nephrology consulted, appreciated recommendations Renal ultrasound with nonvisualized left kidney potentially for technical reasons. 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 Low density area in the left lateral aspect of the spleen Abdomen US 10/08 low-density in the spleen, nonspecific Patient may be a candidate for dialysis, nephrology on board (5) Dementia ICD Codes: F03.90 - Unspecified dementia without behavioral disturbance Status: Chronic Plan: Per discussion with Dr. Ragland, altered mental status from baseline may have been due to urosepsis Nieto act has been lifted Continue Haldol 2 mg IM q8h if needed for severe agitation (6) Hyperkalemia ICD Codes: E87.5 - Hyperkalemia Status: Resolved Plan: K+ 5.8 on admission Potassium had normalized, now low this AM at 2.6 Will replete orally (7) Diabetes mellitus ICD Codes: E11.9 - Type 2 diabetes mellitus without complications Plan: -Low dose SS -Levemir 10 units BID (8) Nutrition, metabolism, and development symptoms ICD Codes: R63.8 - Other symptoms and signs concerning food and fluid intake Status: Acute Plan: Fluids: sodium bicarbonate as above Electrolytes: plan as above, continue to monitor Nutrition: Diabetic Diet DVT ppx: Heparin 5,000 units sq q12h (Bela Cortes MD R1) Problem Qualifiers (1) Dementia: Bela Cortes MD R1 Oct 08, 2017 09:40 Shima Manzo MD Oct 08, 2017 18:42
--- NOTE | 2017-10-08 10:50 | RADRPT ---
EXAM DATE/TIME: 10/08/2017 07:52 [facility] COMPARISON: CT ABDOMEN & PELVIS W/O CONTRAST, October 06, 2017, 14:54. EXTERNAL COMPARISON : [facility], CT ABDOMEN AND PELVIS, March 25, 2015 INDICATIONS : Abnormal CT. MEDICAL HISTORY : Hypothyroidism. Hypercholesterolemia. Chronic obstructive pulmonary disease. Dementia. Syncope. Myoca rdial infarction. Congestive heart failure. Irregular heartbeat. Hypertension. Sleep apnea. Kidney st ones. Bipolar disorder. Depression. Anxiety. PTSD. Herniated disc. Diabetes. Bladder cancer. Measles. SURGICAL HISTORY : Colostomy. Urostomy. ENCOUNTER: Subsequent ACUITY: 2 days PAIN SCORE: Nonresponsive. LOCATION: Abdomen. MEASUREMENTS: LIVER: 19.7 cm length COMMON DUCT: 3 mm RIGHT KIDNEY: 13.0 x 5.6 x 5.6 cm LEFT KIDNEY: Nonvisualized SPLEEN: 11.7 cm length AORTA: 2.5cm maximal FINDINGS: LIVER: Normal echotexture without focal lesion or ductal dilatation. Hepatopedal flow. COMMON DUCT: No intraluminal mass or stone visualized. GALLBLADDER: Contains no stones, demonstrates no wall thickening or pericholecystic fluid. PANCREAS: Nonvisualized. RIGHT KIDNEY: No hydronephrosis, stone or mass. LEFT KIDNEY: Surgically absent. Small left pleural effusion. SPLEEN: Low-density lesion measures 2.7 x 4.4 x 2.3 cm. No color flow. AORTA: Not well seen. IVC: Not well seen. CONCLUSION: 1. Low-density in the spleen as described above, nonspecific. 2. Left nephrectomy. 3. Possible tiny left pleural effusion. Andrea Roman MD on October 08, 2017 at 10:45 Board Certified Radiologist. This report was verified electronically.
--- NOTE | 2017-10-08 10:51 | RADRPT ---
EXAM DATE/TIME: 10/08/2017 08:07 [facility] COMPARISON: CT ABDOMEN & PELVIS W/O CONTRAST, October 06, 2017, 14:54. EXTERNAL COMPARISON : [facility], CT ABDOMEN AND PELVIS, March 25, 2015 INDICATIONS : Abnormal CT. MEDICAL HISTORY : Hypothyroidism. Hypercholesterolemia. Chronic obstructive pulmonary disease. Dementia. Syncope. Myoca rdial infarction. Congestive heart failure. Irregular heartbeat. Hypertension. Sleep apnea. Kidney st ones. Bipolar disorder. Depression. Anxiety. PTSD. Herniated disc. Diabetes. Bladder cancer. Measles. SURGICAL HISTORY : Colostomy. Urostomy. ENCOUNTER: Initial ACUITY: 2 day PAIN SCORE: Non-responsive LOCATION: Abdomen. AORTA: SAGITTAL PROXIMAL: 91.1 cm/sec SAGITTAL MID: Nonvisualized SAGITTAL DISTAL: Nonvisualized CELIAC ARTERY: CA ORIGIN: Nonvisualized CA PROXIMAL: Nonvisualized CA MID: Nonvisualized CA DISTAL: Nonvisualized HEPATIC ARTERY: 165.8 cm/sec SPLENIC ARTERY: 289.7 cm/sec SUPERIOR MESENTERIC ARTERY: SMA PROXIMAL: Nonvisualized SMA MID: Nonvisualized SMA DISTAL: Nonvisualized FINDINGS: CONCLUSION: Very limited study. Only the splenic artery and hepatic arteries are visualized. SMA not visualized. Andrea Roman MD on October 08, 2017 at 10:48 Board Certified Radiologist. This report was verified electronically.
[2017-10-08 12:21] LABS: AUTOMATED NEUTROPHIL # 6.3 TH/MM3 (1.8-7.7); BASOPHIL % 0.4 % (0.0-2.0); EOSINOPHIL # 0.1 TH/MM3 (0-0.4); EOSINOPHIL % 0.9 % (0.0-4.0); HEMATOCRIT 21.3 % (39.0-51.0); HEMO FLAGS DIFF FINAL; LYMPH % 9.9 % (9.0-44.0); LYMPHOCYTE # 0.8 TH/MM3 (1.0-4.8); MEAN CELL VOLUME 85.6 FL (80.0-100.0); MEAN CORPUSCULAR HEMOGLOBIN 29.1 PG (27.0-34.0); MEAN CORPUSCULAR HGB CONC 33.9 % (32.0-36.0); MONO % 13.6 % (0.0-8.0); NEUT % 75.2 % (16.0-70.0); PLATELET COUNT 198 TH/MM3 (150-450); RED BLOOD COUNT 2.49 MIL/MM3 (4.50-5.90); RED CELL DISTRIBUTION WIDTH 16.2 % (11.6-17.2); WHITE BLOOD COUNT 8.3 TH/MM3 (4.0-11.0)
[2017-10-08 12:53] LABS: BICARBONATE 23.3 MEQ/L (21.0-32.0)
--- NOTE | 2017-10-08 12:57 | HHI.NPPN ---
Subjective History of Present Illness Patient is 67-year-old male with history of urostomy and a cancer status post cystectomy not in acute renal failure Additional Remarks Patient was sleepy , wakes up, not in distress. Objective Data Data Vital Signs Date Time Temp Pulse Resp B/P (MAP) Pulse Ox O2 Delivery O2 Flow Rate FiO2 10/08/17 08:00 98.5 78 20 110/59 (76) 96 10/08/17 05:10 67 10/08/17 04:00 Room Air 10/08/17 04:00 99.0 78 20 136/61 (86) 98 10/08/17 00:16 80 10/08/17 00:00 Room Air 10/08/17 00:00 99.8 74 20 150/64 (92) 98 10/07/17 20:35 Room Air 10/07/17 20:05 86 10/07/17 20:00 99.1 79 20 151/64 (93) 100 10/07/17 16:03 84 10/07/17 16:02 98.9 77 20 157/69 (98) -: 10/08/17 1055 10/07/17 0654 Microbiology 10/08/17 Aerobic Blood Culture, Received Pending 10/08/17 Anaerobic Blood Culture, Received Pending 10/08/17 Aerobic Blood Culture, Received Pending 10/08/17 Anaerobic Blood Culture, Received Pending Physical Exam General Appearance: Well Developed, No Acute Distress, Comfortable Neck Neck Exam: Neck Supple Pulmonary Resp Exam: Decreased Bases Cardiology CV Exam: Regular Gastrointestinal/Abdomen GI Exam: Soft (urostomy and colostomy in place) Extremeties Extremities Exam: No Edema Neurologic Neuro Exam: Alert, Awake, Oriented Assessment/Plan Problem List: (1) Acute on chronic renal insufficiency ICD Codes: N28.9 - Disorder of kidney and ureter, unspecified; N18.9 - Chronic kidney disease, unspecified Status: Acute Plan: Patient has output however he does have GI losses and we will try slow down using Sandostatin IV fluid switched to D5W with 150 mEq/L of sodium bicarbonate Follow BMP, still pending from today. Continue to monitor urine output. Follow the urine out put and BMP. D/W the son at bedside. (2) Dementia ICD Codes: F03.90 - Unspecified dementia without behavioral disturbance Status: Chronic (3) Hyperchloremic metabolic acidosis ICD Codes: E87.2 - Acidosis Plan: Patient has urostomy and colostomy is losing bicarbonate Problem Qualifiers (1) Dementia: Kwaku George MD Oct 08, 2017 12:57
[2017-10-08 13:01] LABS: POTASSIUM 2.6 MEQ/L (3.5-5.1)
--- NOTE | 2017-10-08 13:08 | HHI.GIFU ---
Objective Vitals I&O Vital Signs Date Time Temp Pulse Resp B/P (MAP) Pulse Ox O2 Delivery O2 Flow Rate FiO2 10/08/17 08:00 98.5 78 20 110/59 (76) 96 10/08/17 05:10 67 10/08/17 04:00 Room Air 10/08/17 04:00 99.0 78 20 136/61 (86) 98 10/08/17 00:16 80 10/08/17 00:00 Room Air 10/08/17 00:00 99.8 74 20 150/64 (92) 98 10/07/17 20:35 Room Air 10/07/17 20:05 86 10/07/17 20:00 99.1 79 20 151/64 (93) 100 10/07/17 16:03 84 10/07/17 16:02 98.9 77 20 157/69 (98) I/O 10/07/17 10/07/17 10/07/17 10/08/17 10/08/17 10/08/17 07:00 15:00 23:00 07:00 15:00 23:00 Intake Total 1100 ml 1000 ml 1527 ml Output Total 1730 ml 755 ml 1125 ml Balance -630 ml 1000 ml -755 ml 402 ml Intake Oral 360 ml IV Total 1100 ml 1000 ml 1167 ml Output Urine Total 1530 ml 625 ml Stool Total 200 ml 130 ml 1125 ml Laboratory Laboratory Tests Test 10/08/17 10:55 White Blood Count 8.3 Red Blood Count 2.49 Hemoglobin 7.2 Hematocrit 21.3 Mean Corpuscular Volume 85.6 Mean Corpuscular Hemoglobin 29.1 Mean Corpuscular Hemoglobin Concent 33.9 Red Cell Distribution Width 16.2 Platelet Count 198 Mean Platelet Volume 7.0 Neutrophils (%) (Auto) 75.2 Lymphocytes (%) (Auto) 9.9 Monocytes (%) (Auto) 13.6 Eosinophils (%) (Auto) 0.9 Basophils (%) (Auto) 0.4 Neutrophils # (Auto) 6.3 Lymphocytes # (Auto) 0.8 Monocytes # (Auto) 1.1 Eosinophils # (Auto) 0.1 Basophils # (Auto) 0.0 CBC Comment DIFF FINAL Differential Comment Blood Urea Nitrogen 95 Creatinine 4.49 Random Glucose 326 Calcium Level 7.3 Sodium Level 144 Potassium Level 2.6 Chloride Level 111 Carbon Dioxide Level 23.3 Anion Gap 10 Estimat Glomerular Filtration Rate 13 Date/Time Source Procedure Growth Status 10/08/17 11:00 Blood Peripheral Aerobic Blood Culture Pending Received 10/08/17 11:00 Blood Peripheral Anaerobic Blood Culture Pending Received 10/07/17 12:00 Stool Stool Stool Occult Blood (BERNARD) - Final HEMOCCULT POSITIVE Complete 10/07/17 12:00 Urine Other Urine Culture Pending Received Physical Exam HEENT: Pupils round and reactive to light; normocephalic; atraumatic; no jaundice. Throat is clear. NECK: Neck is supple, no JVD, no lymphadenopathy. CHEST: Chest is clear to auscultation and percussion. CARDIAC: Regular rate and rhythm with no murmur gallop or rubs. ABDOMEN: Soft, nondistended, nontender; no hepatosplenomegaly; bowel sounds are present in all four quadrants. EXTREMITIES: No clubbing, cyanosis, or edema. SKIN: Normal; no rash; no jaundice. CONSULAR OFFICER: No focal deficits; alert and oriented times three. Assessment and Plan Plan ASSESSMENT - anemia with drop in hgb, heme pos stool - poss GIB. likely also multifactorial NO obvious bleeding. no prior hx GIB. not on blood thinners CT showing hypodense area spleen, poss infarct. - sepsis UTI, acute on chronic renal insufficiency, hx bladder ca per primary PLAN - EGD/colonoscopy, timing TBD - monitor HH - transfuse if needed - egd/colon on Tuesday unless indicated otherwise if active bleeding-bleeding scan and endoscopy on emergency - supportive care - further recs to follow This pt seen by myself and Dr Cameron and this note is written on her behalf Shima Weaver Oct 08, 2017 13:08
[2017-10-08 13:17] LABS: CALCIUM-PROTEIN CORRECTED 7.8 MG/DL (8.5-10.1)
[2017-10-08] MEDS ORDERED: POTASSIUM CHLORIDE 10 MEQ CONTROLLED RELEASE TAB PO ONE (13:30)
[2017-10-08] MEDS ORDERED: SODIUM CHLOR 0.9% 250 ML INJ 250 ML IV ONE (13:45)
--- NOTE | 2017-10-08 13:46 | HHI.GIFU ---
Subjective Remarks drowsy, not eating, son in. Ostomy bags show no active bleeding. Low grade fever (Shima Weaver) Objective Vitals I&O Vital Signs Date Time Temp Pulse Resp B/P (MAP) Pulse Ox O2 Delivery O2 Flow Rate FiO2 10/08/17 08:00 98.5 78 20 110/59 (76) 96 10/08/17 05:10 67 10/08/17 04:00 Room Air 10/08/17 04:00 99.0 78 20 136/61 (86) 98 10/08/17 00:16 80 10/08/17 00:00 Room Air 10/08/17 00:00 99.8 74 20 150/64 (92) 98 10/07/17 20:35 Room Air 10/07/17 20:05 86 10/07/17 20:00 99.1 79 20 151/64 (93) 100 10/07/17 16:03 84 10/07/17 16:02 98.9 77 20 157/69 (98) I/O 10/07/17 10/07/17 10/07/17 10/08/17 10/08/17 10/08/17 07:00 15:00 23:00 07:00 15:00 23:00 Intake Total 1100 ml 1000 ml 1527 ml Output Total 1730 ml 755 ml 1125 ml Balance -630 ml 1000 ml -755 ml 402 ml Intake Oral 360 ml IV Total 1100 ml 1000 ml 1167 ml Output Urine Total 1530 ml 625 ml Stool Total 200 ml 130 ml 1125 ml Laboratory Laboratory Tests Test 10/08/17 10:55 White Blood Count 8.3 Red Blood Count 2.49 Hemoglobin 7.2 Hematocrit 21.3 Mean Corpuscular Volume 85.6 Mean Corpuscular Hemoglobin 29.1 Mean Corpuscular Hemoglobin Concent 33.9 Red Cell Distribution Width 16.2 Platelet Count 198 Mean Platelet Volume 7.0 Neutrophils (%) (Auto) 75.2 Lymphocytes (%) (Auto) 9.9 Monocytes (%) (Auto) 13.6 Eosinophils (%) (Auto) 0.9 Basophils (%) (Auto) 0.4 Neutrophils # (Auto) 6.3 Lymphocytes # (Auto) 0.8 Monocytes # (Auto) 1.1 Eosinophils # (Auto) 0.1 Basophils # (Auto) 0.0 CBC Comment DIFF FINAL Differential Comment Blood Urea Nitrogen 95 Creatinine 4.49 Random Glucose 326 Total Protein 6.1 Calcium Level 7.3 Sodium Level 144 Potassium Level 2.6 Chloride Level 111 Carbon Dioxide Level 23.3 Anion Gap 10 Estimat Glomerular Filtration Rate 13 Protein Corrected Calcium 7.8 Date/Time Source Procedure Growth Status 10/08/17 11:00 Blood Peripheral Aerobic Blood Culture Pending Received 10/08/17 11:00 Blood Peripheral Anaerobic Blood Culture Pending Received 10/07/17 12:00 Stool Stool Stool Occult Blood (BERNARD) - Final HEMOCCULT POSITIVE Complete 10/07/17 12:00 Urine Other Urine Culture Pending Received Imaging Last Impressions Abdomen Ultrasound 10/08/17 0000 Signed Impressions: Service Date/Time: Sunday, October 08, 2017 08:07 - CONCLUSION: Very limited study. Only the splenic artery and hepatic arteries are visualized. SMA not visualized. Andrea Roman MD Chest X-Ray 10/07/17 0000 Signed Impressions: Service Date/Time: Saturday, October 07, 2017 11:53 - CONCLUSION: No acute disease. Chuy Penny MD FACR Abdomen/Pelvis CT 10/06/17 0000 Signed Impressions: Service Date/Time: September 14:54 - CONCLUSION: 1. Status post cystectomy. 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 2. Absence of the left kidney. 3. Mild fullness of the right renal collecting system. 4. 5 cm low density area seen in the left lateral aspect of the spleen. This is nonspecific. This could represent a process such as an infarct. Neoplastic disease cannot be ruled out. Yasir Wong MD Renal Ultrasound 10/05/17 0000 Signed Impressions: Service Date/Time: Thursday, October 05, 2017 11:03 - CONCLUSION: Nonvisualized left kidney potentially for technical reasons. No hydronephrosis on the right Yasir Garza MD Physical Exam HEENT; normocephalic; atraumatic; pale Throat is dry NECK: Neck is supple, no JVD, CHEST: Chest active rhonchi or wheezing, low volumes CARDIAC: Regular rate and rhythm ABDOMEN: Soft, nondistended, nontender; bowel sounds soft , stool brown from ostomy bags EXTREMITIES: No clubbing, cyanosis, or edema. SKIN: Normal; no rash; no jaundice. 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 likely also multifactorial NO obvious bleeding. no prior hx GIB. not on blood thinners CT showing hypodense area spleen, poss infarct. Hemoglobin continues to drop slowly though no obvious bleed noted via his ostomy tubes, no vomiting, hemoglobin 7.2 today which has been a slow but continuous drop. On admission hemoglobin was 11.5 - sepsis UTI, acute on chronic renal insufficiency, hx bladder ca per primary - Hypokalemia followed per hospitalist - Abdominal ultrasound done on 10-08, left pleural effusion, low density spleen, PLAN - EGD/colonoscopy, possible Tuesday, to be reevaluated tomorrow - monitor HH, recheck CBC in the morning - transfuse 2 units packed RBCs today - PPI IV added if active bleeding-bleeding scan and endoscopy on emergency - supportive care - further recs to follow This pt seen by myself and Dr Cameron and this note is written on her behalf (Shima Weaver) Shima Weaver Oct 08, 2017 13:46 Brenna Cameron MD Oct 08, 2017 18:09
[2017-10-08] MEDS ORDERED: FUROSEMIDE 20 MG/2 ML VIAL IV PUSH ONE (14:30)
[2017-10-08] MEDS: INSULIN DETEMIR 100 UNITS/ML VIAL SQ SCH ×2 (15:57→22:37)
[2017-10-08 16:49] LABS: HEMATOCRIT 22.7 % (39.0-51.0)
[2017-10-08 16:57] LABS: REVIEW FLAG FINAL
[2017-10-08] MEDS: PANTOPRAZOLE SODIUM 40 MG VIAL IV PUSH SCH ×2 (17:51→22:07)
[2017-10-08] MEDS: LEVOFLOXACIN 250 MG TAB PO SCH (17:52)
[2017-10-09] VITALS (11 sets, daily range): BP systolic 134–171; BP diastolic 63–71; PULSE 51–74; RESP 16–20; TEMP 97.4–99; O2SAT 97–100
[2017-10-09] MEDS: SODIUM BICARBONATE 8.4% INJ 100 MEQ in DEXTROSE 5% IN WATE 1000ML INJ 1,000 ML IV SCH ×4 (02:40→10:00)
[2017-10-09] MEDS: OCTREOTIDE INJ 50 MCG/ML AMP IV PUSH SCH ×3 (05:16→22:51)
[2017-10-09] MEDS: SODIUM CHLORIDE 0.9% FLUSH 10 ML FLUSH IV FLUSH PRN (05:17)
[2017-10-09] MEDS: INSULIN ASPART SUPPLEMENTAL SCALE SQ SCH ×4 (08:00→22:45)
[2017-10-09] MEDS: METOPROLOL TARTRATE 25 MG TAB PO SCH ×2 (08:13→20:33)
[2017-10-09] MEDS: ASPIRIN 325 MG TAB PO SCH (08:13)
[2017-10-09] MEDS: INSULIN DETEMIR 100 UNITS/ML VIAL SQ SCH ×2 (08:13→21:00)
[2017-10-09] MEDS: PANTOPRAZOLE SODIUM 40 MG VIAL IV PUSH SCH ×2 (08:14→20:34)
[2017-10-09] MEDS: SODIUM CHLORIDE 0.9% FLUSH 10 ML FLUSH IV FLUSH SCH ×2 (08:14→20:34)
[2017-10-09] MEDS: DIGOXIN 0.125 MG TAB PO SCH (08:14)
[2017-10-09] MEDS: HEPARIN SODIUM - SQ 10,000 UNITS/ML VIAL SQ SCH ×2 (08:15→20:35)
[2017-10-09 09:11] LABS: HEMATOCRIT 24.1 % (39.0-51.0); MEAN CELL VOLUME 85.5 FL (80.0-100.0); MEAN CORPUSCULAR HEMOGLOBIN 29.2 PG (27.0-34.0); MEAN CORPUSCULAR HGB CONC 34.2 % (32.0-36.0); PLATELET COUNT 223 TH/MM3 (150-450); RED BLOOD COUNT 2.82 MIL/MM3 (4.50-5.90); RED CELL DISTRIBUTION WIDTH 15.9 % (11.6-17.2); REVIEW FLAG FINAL
[2017-10-09 09:52] LABS: BICARBONATE 29.9 MEQ/L (21.0-32.0); POTASSIUM 3.1 MEQ/L (3.5-5.1)
[2017-10-09 10:23] LABS: CALCIUM-PROTEIN CORRECTED 7.6 MG/DL (8.5-10.1)
[2017-10-09] MEDS ORDERED: POTASSIUM CHLOR 20 MEQ PREMIX 100 ML IV ONE (11:45)
--- NOTE | 2017-10-09 11:46 | HHI.NPPN ---
Subjective History of Present Illness Patient is 67-year-old male with history of urostomy and a cancer status post cystectomy not in acute renal failure Additional Remarks Patient is more alert, today, still not eating much, no SOB. Objective Data Data Vital Signs Date Time Temp Pulse Resp B/P (MAP) Pulse Ox O2 Delivery O2 Flow Rate FiO2 10/09/17 08:15 Room Air 10/09/17 05:00 97.6 59 20 152/70 (97) 100 10/09/17 04:13 61 10/09/17 00:02 56 10/09/17 00:00 97.4 66 16 163/66 (98) 100 10/09/17 00:00 Room Air 10/08/17 20:00 Room Air 10/08/17 20:00 97.4 68 16 142/85 (104) 99 10/08/17 19:53 52 10/08/17 16:00 98.2 61 20 127/63 (84) 98 10/08/17 12:00 58 10/08/17 12:00 98.7 59 20 126/58 (80) 96 -: 10/09/17 0838 10/09/17 0838 Physical Exam General Appearance: Well Developed, No Acute Distress, Comfortable Neck Neck Exam: Neck Supple Pulmonary Resp Exam: Decreased Bases Cardiology CV Exam: Regular Gastrointestinal/Abdomen GI Exam: Soft (urostomy and colostomy in place) Extremeties Extremities Exam: No Edema Neurologic Neuro Exam: Alert, Awake, Oriented Assessment/Plan Problem List: (1) Acute on chronic renal insufficiency ICD Codes: N28.9 - Disorder of kidney and ureter, unspecified; N18.9 - Chronic kidney disease, unspecified Status: Acute Plan: Patient has output however he does have GI losses and we will try slow down using Sandostatin IV fluid switched to D5W with 150 mEq/L of sodium bicarbonate. Follow the urine out put and BMP. Creatinine slightly better, K is low. Acidosis is better. Change IVF with Kcl, and decrease the rate. (2) Dementia ICD Codes: F03.90 - Unspecified dementia without behavioral disturbance Status: Chronic (3) Hyperchloremic metabolic acidosis ICD Codes: E87.2 - Acidosis Plan: Patient has urostomy and colostomy is losing bicarbonate Problem Qualifiers (1) Dementia: Kwaku George MD Oct 09, 2017 11:46
[2017-10-09] MEDS: D5-NS + KCL 20 MEQ INJ 1,000 ML IV SCH (12:21)
--- NOTE | 2017-10-09 12:22 | HHI.FPPN ---
Subjective Remarks Patient slightly more alert this morning. However, in view of systems and history still severely limited secondary to mental state. No complaints at this time. (Papito Manzo MD, R3) Objective Vitals Vital Signs Date Time Temp Pulse Resp B/P (MAP) Pulse Ox O2 Delivery O2 Flow Rate FiO2 10/09/17 08:15 Room Air 10/09/17 05:00 97.6 59 20 152/70 (97) 100 10/09/17 04:13 61 10/09/17 00:02 56 10/09/17 00:00 97.4 66 16 163/66 (98) 100 10/09/17 00:00 Room Air 10/08/17 20:00 Room Air 10/08/17 20:00 97.4 68 16 142/85 (104) 99 10/08/17 19:53 52 10/08/17 16:00 98.2 61 20 127/63 (84) 98 I/O 10/08/17 10/08/17 10/08/17 10/09/17 10/09/17 10/09/17 07:00 15:00 23:00 07:00 15:00 23:00 Intake Total 1527 ml 1100 ml 0 ml 719 ml Output Total 1125 ml 850 ml 950 ml Balance 402 ml 250 ml 0 ml -231 ml Intake Oral 360 ml 0 ml IV Total 1167 ml 1100 ml 719 ml Output Urine Total 850 ml 950 ml Stool Total 1125 ml # Bowel Movements 0 (Papito Manzo MD, R3) Result Diagram: 10/09/17 0838 10/09/17 0838 Objective Remarks GENERAL: NAD, awake, not agitated NEURO: Alert. Oriented to self, disoriented to place and time. Speech is clear. ad taker grossly intact. Moving all extremities. SKIN: Warm and dry. No rashes or erythema. HEAD: Normocephalic. Atraumatic. EYES: EOMI. No scleral icterus. No injection or drainage. ENT: No nasal drainage. Moist mucous membranes. NECK: Supple, trachea midline. No JVD. CARDIOVASCULAR: Regular rate and rhythm without murmurs, rubs, or gallops. Peripheral pulses 2+. RESPIRATORY: Breath sounds clear to auscultation and equal bilaterally, without wheezes, rales, or rhonchi. No accessory muscle use. GASTROINTESTINAL: Abdomen soft, nontender, nondistended. No rebound tenderness. No guarding. Ostomy and urine output bag in place. MUSCULOSKELETAL: No lower extremity edema. (Papito Manzo MD, R3) A/P Assessment and Plan 67-year-old man admitted under Nieto act after reportedly displaying aggressive behavior towards his family. He is also being managed for sepsis due to a urinary tract infection as well as chronic renal insufficiency. Discharge Planning Awaiting further workup, unclear timetable at this time (Papito Manzo MD, R3) Attending Attestation Patient seen and examined. Case reviewed and discussed with the resident team. Agree with plan of care as discussed with me and documented in the resident note. (Shima Manzo MD) Problem List: (1) Sepsis ICD Codes: A41.9 - Sepsis, unspecified organism Status: Acute Plan: Patient met criteria for sepsis on admission with elevated pulse and leukocytosis Source due to a urinary tract infection Lactate 0.8 Continue IV fluids per nephrology Continue Levaquin (2) UTI (urinary tract infection) ICD Codes: N39.0 - Urinary tract infection, site not specified Status: Acute Plan: Large leuk esterase, many bacteria, 138 WBC, no comment on squam cells Repeat UA reveal moderate leuk esterase, occ bacteria Urine culture growing > 100,000 col of both E. coli and Klebsiella, both pineda- sensitive Repeat preliminary urine culture growing MRSA, and group D enterococcus Will continue with renally dosed Levaquin, transitioned to oral for dose on 10/08 with 250 mg PO q48h based on the patients GFR for a total of 10-14 days ID consulted, appreciate recs (3) Anemia ICD Codes: D64.9 - Anemia, unspecified Status: Acute Plan: Consider acute GI bleed vs other acute blood loss anemia Hemoccult positive GI consulted, recs appreciated PPI IV EGD/colonoscopy possibly Tuesday Hemoglobin currently stable If active bleeding-bleeding scan and endoscopy on emergency (4) Acute on chronic renal insufficiency ICD Codes: N28.9 - Disorder of kidney and ureter, unspecified; N18.9 - Chronic kidney disease, unspecified Status: Acute Plan: Cr 4.14 on admission, baseline may be around 1.70 Possibly acute on chronic due to prerenal due to dehydration versus diabetic nephropathy vs intrinsic renal pathology, but urine specific gravity was 1.01 IV fluid hydration as above Avoid nephrotoxins as able Monitor I/Os Continue to trend renal function Nephrology consulted, appreciated recommendations Renal ultrasound with nonvisualized left kidney potentially for technical reasons. 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 Low density area in the left lateral aspect of the spleen Abdomen US 10/08 low-density in the spleen, nonspecific Patient may be a candidate for dialysis, nephrology on board (5) Dementia ICD Codes: F03.90 - Unspecified dementia without behavioral disturbance Status: Chronic Plan: Per discussion with Dr. Ragland, altered mental status from baseline may have been due to urosepsis Nieto act has been lifted Continue Haldol 2 mg IM q8h if needed for severe agitation (6) Hyperkalemia ICD Codes: E87.5 - Hyperkalemia Status: Resolved Plan: K+ 5.8 on admission (7) Diabetes mellitus ICD Codes: E11.9 - Type 2 diabetes mellitus without complications Plan: -Low dose SS -Levemir 10 units BID (8) Nutrition, metabolism, and development symptoms ICD Codes: R63.8 - Other symptoms and signs concerning food and fluid intake Status: Acute Plan: Fluids: D5 normal saline with potassium chloride per nephrology Electrolytes: plan as above, continue to monitor Nutrition: Diabetic Diet DVT ppx: Heparin 5,000 units sq q12h (Papito Manzo MD, R3) Problem Qualifiers (1) Dementia: Papito Manzo MD, R3 Oct 09, 2017 12:22 Shima Manzo MD Oct 09, 2017 14:17
--- NOTE | 2017-10-09 15:55 | PD.ID.CON ---
History of Present Illness Service ID Consult Requested By Dr Cortes Reason for Consult urosepsis, MRSA in urine Primary Care Physician [facility] Diagnoses: History of Present Illness Pt unable to provide history, history obtained thru chart reviewe, interview with family 67 yo male pt admitted under Nieto Act after getting hostile/violent with family Pt is a 67-year-old male with h/o bladder Ca sp cystectomy and multiple medical problems CHF, COPD, GERD, DM, HTN, NE, CKD, colonic polyps status post colectomy , dementia presents to the ED for under BA for psychiatric evaluation. Pt was found to be confused on presentation and medical clearance was requested One time fever documented since admission of 100.0 and leukocytosis of 16.8 K His creatinine went from baseline of 1.6 to 4.4 Pt is sp L nephrectomy, no hydro on the R 4.5 cm splenic lesion was seen on CT Initial urine clx with Kleb, E.coli (pineda S), next urine had MRSA and Enterococcus ID consult requirested for MRSA in the urine HIs creatinine stays pretty high @ 4.18 Review of Systems ROS Limitations: Clinical Condition (dementia), Poor Historian Past Family Social History Allergies: Coded Allergies: No Known Allergies (Verified Adverse Reaction, Unknown, 10/04/17) Past Medical History DM CAD s/p multi-vessel stenting chronic renal insufficiency CHF COPD colonic polyps s/p colectomy bladder cancer s/p cystectomy per EMR a history of dementia Cardiomyopathy Past Surgical History Colectomy Cystectomy Multivessel stenting L nephrectomy Active Ordered Medications Medications where reviewed in EMR Antibiotics Include: levaquine Family History reviewed nnon contributory Social History + past Tobacco. + past ETOH. No Illicit Drugs reported by recors/ DOA negative retired Physical Exam Vital Signs Vital Signs Date Time Temp Pulse Resp B/P (MAP) Pulse Ox O2 Delivery O2 Flow Rate FiO2 10/09/17 08:15 Room Air 10/09/17 05:00 97.6 59 20 152/70 (97) 100 10/09/17 04:13 61 10/09/17 00:02 56 10/09/17 00:00 97.4 66 16 163/66 (98) 100 10/09/17 00:00 Room Air 10/08/17 20:00 Room Air 10/08/17 20:00 97.4 68 16 142/85 (104) 99 10/08/17 19:53 52 10/08/17 16:00 98.2 61 20 127/63 (84) 98 Physical Exam CONSTITUTIONAL/GENERAL: This is an adequately nourished patient, in no apparent distress. TUBES/LINES/DRAINS: SKIN: No jaundice, rashes, or lesions. Skin temperature appropriate. Not diaphoretic. HEAD: Atraumatic. Normocephalic. EYES: Pupils equal and round and reactive. Extraocular motions intact. No scleral icterus. No injection or drainage. Fundi not examined. ENT: Hearing grossly normal. Nose without bleeding or purulent drainage. Throat without visible erythema, exudates, masses, or lesions. NECK: Trachea midline. Supple, nontender. No palpable thyroid enlargement or nodularity. CARDIOVASCULAR: Regular rate and rhythm without murmurs, gallops, or rubs. No JVD. Peripheral pulses symmetric. RESPIRATORY/CHEST: Symmetric, unlabored respirations. Clear to auscultation. Breath sounds equal bilaterally. No wheezes, rales, or rhonchi. GASTROINTESTINAL: Abdomen soft, non-tender, nondistended. No hepato-splenomegaly , or palpable masses. No guarding. Bowel sounds present. Colostomy in place with liquid light brown stool with visible blood present in LLQ Ileostomy in place with cloudy urine in collection bag GENITOURINARY: Without palpable bladder distension. Head catheter in place. MUSCULOSKELETAL: Extremities without clubbing, cyanosis, or edema. No joint tenderness or effusion noted. No calf tenderness. No mottling or clubbing. LYMPHATICS: No palpable cervical or supraclavicular adenopathy. NEUROLOGICAL: Awake and alert. Motor and sensory grossly within normal limits. Follows commands. Confused, speech incoherent . Moves all extremities. PSYCHIATRIC: calm, cooperative Laboratory Laboratory Tests Test 10/08/17 16:18 10/09/17 08:38 Hemoglobin 8.2 8.2 Hematocrit 22.7 24.1 White Blood Count 9.0 Red Blood Count 2.82 Mean Corpuscular Volume 85.5 Mean Corpuscular Hemoglobin 29.2 Mean Corpuscular Hemoglobin Concent 34.2 Red Cell Distribution Width 15.9 Platelet Count 223 Mean Platelet Volume 6.9 Blood Urea Nitrogen 78 Creatinine 4.18 Random Glucose 240 Total Protein 6.6 Calcium Level 7.3 Sodium Level 144 Potassium Level 3.1 Chloride Level 109 Carbon Dioxide Level 29.9 Anion Gap 5 Estimat Glomerular Filtration Rate 14 Protein Corrected Calcium 7.6 Date/Time Source Procedure Growth Status 10/08/17 11:00 Blood Peripheral Aerobic Blood Culture - Preliminary NO GROWTH IN 1 DAY Resulted 10/08/17 11:00 Blood Peripheral Anaerobic Blood Culture - Preliminary NO GROWTH IN 1 DAY Resulted 10/07/17 12:00 Stool Stool Stool Occult Blood (BERNARD) - Final HEMOCCULT POSITIVE Complete 10/07/17 12:00 Urine Other Urine Culture - Final S. Aureus Mrsa Enterococcus Faecalis Complete Result Diagram: 10/09/1783710/09/1738 Imaging Last Impressions Abdomen Ultrasound 10/08/17 0000 Signed Impressions: Service Date/Time: Sunday, October 08, 2017 08:07 - CONCLUSION: Very limited study. Only the splenic artery and hepatic arteries are visualized. SMA not visualized. Andrea Roman MD Chest X-Ray 10/07/17 0000 Signed Impressions: Service Date/Time: Saturday, October 07, 2017 11:53 - CONCLUSION: No acute disease. Chuy Penny MD FACR Abdomen/Pelvis CT 10/06/17 0000 Signed Impressions: Service Date/Time: September 14:54 - CONCLUSION: 1. Status post cystectomy. 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 2. Absence of the left kidney. 3. Mild fullness of the right renal collecting system. 4. 5 cm low density area seen in the left lateral aspect of the spleen. This is nonspecific. This could represent a process such as an infarct. Neoplastic disease cannot be ruled out. Yasir Wong MD Renal Ultrasound 10/05/17 0000 Signed Impressions: Service Date/Time: Thursday, October 05, 2017 11:03 - CONCLUSION: Nonvisualized left kidney potentially for technical reasons. No hydronephrosis on the right Yasir Garza MD Assessment and Plan Assessment and Plan Acute renal failure UTI, Kleb pneom, E.clli Complicated UTI in a pt with ileostomy MRSA in urine ? clin significance - not a usual urinary or GI pathogen; presence can be usually explained either 2/2 MRSA bacteremia or contamination cont levaquine repeat UA/urine clx if concerns for ongoing infx (fever, leukocytosis, mental stus change, hemodynamic instability Discussed Condition With multiple family members @ b/s Virgen Sparrow MD Oct 09, 2017 15:54
--- NOTE | 2017-10-09 17:55 | HHI.GIFU ---
GI Follow-up Note Consult Follow-up Subjective: Patient laying in bed comfortably, confused. S/p prbc this admission, no indication of gi bleeding . at bedside, states transfused him 1 yr ago.Was aslo recommended to have egd/colon-was not done Objective: PHYSICAL EXAMINATION: Vitals signs stable No fever Vital Signs Date Time Temp Pulse Resp B/P (MAP) Pulse Ox O2 Delivery O2 Flow Rate FiO2 10/09/17 16:08 57 10/09/17 12:00 51 HEENT: Pupils round and reactive to light; normocephalic; atraumatic; no jaundice. Throat is clear. NECK: Neck is supple, no JVD, no lymphadenopathy. CHEST: Chest is clear to auscultation and percussion. CARDIAC: Regular rate and rhythm with no murmur gallop or rubs. ABDOMEN: Soft, nondistended, nontender; no hepatosplenomegaly; bowel sounds are present in all four quadrants, colostomy and ileostomy, long abdominal incision EXTREMITIES: No clubbing, cyanosis, or edema. SKIN: Normal; no rash; no jaundice. 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 Available Data (labs, X- Rays, Procedues) : Laboratory Tests Test 10/08/17 10:55 10/08/17 16:18 10/09/17 08:38 White Blood Count 8.3 TH/MM3 9.0 TH/MM3 Red Blood Count 2.49 MIL/MM3 2.82 MIL/MM3 Hemoglobin 7.2 GM/DL 8.2 GM/DL 8.2 GM/DL Hematocrit 21.3 % 22.7 % 24.1 % Mean Corpuscular Volume 85.6 FL 85.5 FL Mean Corpuscular Hemoglobin 29.1 PG 29.2 PG Mean Corpuscular Hemoglobin Concent 33.9 % 34.2 % Red Cell Distribution Width 16.2 % 15.9 % Platelet Count 198 TH/MM3 223 TH/MM3 Mean Platelet Volume 7.0 FL 6.9 FL Neutrophils (%) (Auto) 75.2 % Lymphocytes (%) (Auto) 9.9 % Monocytes (%) (Auto) 13.6 % Eosinophils (%) (Auto) 0.9 % Basophils (%) (Auto) 0.4 % Neutrophils # (Auto) 6.3 TH/MM3 Lymphocytes # (Auto) 0.8 TH/MM3 Monocytes # (Auto) 1.1 TH/MM3 Eosinophils # (Auto) 0.1 TH/MM3 Basophils # (Auto) 0.0 TH/MM3 CBC Comment DIFF FINAL Differential Comment Blood Urea Nitrogen 95 MG/DL 78 MG/DL Creatinine 4.49 MG/DL 4.18 MG/DL Random Glucose 326 MG/DL 240 MG/DL Total Protein 6.1 GM/DL 6.6 GM/DL Calcium Level 7.3 MG/DL 7.3 MG/DL Sodium Level 144 MEQ/L 144 MEQ/L Potassium Level 2.6 MEQ/L 3.1 MEQ/L Chloride Level 111 MEQ/L 109 MEQ/L Carbon Dioxide Level 23.3 MEQ/L 29.9 MEQ/L Anion Gap 10 MEQ/L 5 MEQ/L Estimat Glomerular Filtration Rate 13 ML/MIN 14 ML/MIN Protein Corrected Calcium 7.8 MG/DL 7.6 MG/DL ASSESSMENT/PLAN: [id number] indication of active bleeding-as per receives iron infusion and prbc periodically history of polyps-last colonoscopy many years ago spleen lesion-us benign, not suggestive of infarct patient had most of his work-up at [facility] -we will review \ Recommendations egd/colonoscopy in am possible flexisigmooidoscopy-tried to do rectal exam, patient could not tolerate consider hematology eval for possible iron infusion It was a pleasure seeing Shai Stringer Thank you for this consult. Entered by: Brenna Worthy MD Oct 09, 2017 17:55
[2017-10-09] MEDS ORDERED: BISACODYL EC 5 MG TABEC PO ONE ×2 (18:00→21:30)
[2017-10-09] MEDS ORDERED: MAGNESIUM CITRATE SOLN 300 ML BTL PO ONE (18:00)
[2017-10-10] VITALS (9 sets, daily range): BP systolic 137–167; BP diastolic 62–76; PULSE 50–70; RESP 16–22; TEMP 97.2–98.4; O2SAT 98–100
[2017-10-10] MEDS ORDERED: LACTATED RINGER'S 1000 ML IV PRN (01:15)
[2017-10-10] MEDS ORDERED: POVIDONE IODINE 5% (ANTISEPSIS KIT) 4 APPLICATIONS EACH NARE PRN (01:15)
[2017-10-10] MEDS ORDERED: CHLORHEXIDINE GLUCONATE 2 % 1 PACK (2 CLOTHS) TOPICAL PRN (01:15)
[2017-10-10] MEDS ORDERED: SODIUM CHLORID 0.9% 500 ML IV PRN (01:15)
[2017-10-10] MEDS: D5-NS + KCL 20 MEQ INJ 1,000 ML IV SCH ×2 (02:02→17:36)
[2017-10-10] MEDS: HALOPERIDOL LACTATE 5 MG/ML AMP IM PRN ×2 (02:21→21:42)
[2017-10-10] MEDS ORDERED: ONDANSETRON HCL 4 MG/2 ML VIAL IV PUSH PRN (06:15)
[2017-10-10] MEDS: OCTREOTIDE INJ 50 MCG/ML AMP IV PUSH SCH ×2 (06:49→13:21)
[2017-10-10] MEDS: SODIUM CHLORIDE 0.9% FLUSH 10 ML FLUSH IV FLUSH PRN (06:51)
[2017-10-10 07:23] LABS: BASOPHIL % 0.5 % (0.0-2.0); EOSINOPHIL # 0.1 TH/MM3 (0-0.4); EOSINOPHIL % 1.4 % (0.0-4.0); HEMATOCRIT 24.4 % (39.0-51.0); HEMO FLAGS DIFF FINAL; LYMPH % 15.3 % (9.0-44.0); LYMPHOCYTE # 1.3 TH/MM3 (1.0-4.8); MEAN CORPUSCULAR HEMOGLOBIN 29.3 PG (27.0-34.0); MEAN CORPUSCULAR HGB CONC 34.1 % (32.0-36.0); MONO % 11.4 % (0.0-8.0); NEUT % 71.4 % (16.0-70.0); PLATELET COUNT 229 TH/MM3 (150-450); RED BLOOD COUNT 2.83 MIL/MM3 (4.50-5.90); RED CELL DISTRIBUTION WIDTH 15.7 % (11.6-17.2); WHITE BLOOD COUNT 8.4 TH/MM3 (4.0-11.0)
[2017-10-10 07:54] LABS: ALKALINE PHOSPHATASE 83 U/L (45-117); ALT (GPT) 11 U/L (12-78); ANION GAP 7 MEQ/L (5-15); AST (GOT) 12 U/L (15-37); BLOOD UREA NITROGEN 62 MG/DL (7-18); CHLORIDE 111 MEQ/L (98-107); GLOMERULAR FILTRATION RATE 15 ML/MIN (>89); SODIUM (NA) 147 MEQ/L (136-145); TOTAL BILIRUBIN ADULT 0.3 MG/DL (0.2-1.0)
[2017-10-10] MEDS: INSULIN ASPART SUPPLEMENTAL SCALE SQ SCH ×4 (08:00→21:00)
[2017-10-10] MEDS: HEPARIN SODIUM - SQ 10,000 UNITS/ML VIAL SQ SCH ×2 (08:46→21:00)
[2017-10-10] MEDS: ASPIRIN 325 MG TAB PO SCH (08:46)
[2017-10-10] MEDS: METOPROLOL TARTRATE 25 MG TAB PO SCH ×2 (08:47→21:00)
[2017-10-10] MEDS: DIGOXIN 0.125 MG TAB PO SCH (08:47)
[2017-10-10] MEDS: INSULIN DETEMIR 100 UNITS/ML VIAL SQ SCH ×2 (08:47→21:00)
[2017-10-10] MEDS: SODIUM CHLORIDE 0.9% FLUSH 10 ML FLUSH IV FLUSH SCH ×2 (08:48→21:00)
[2017-10-10] MEDS: PANTOPRAZOLE SODIUM 40 MG VIAL IV PUSH SCH ×2 (08:48→21:00)
--- NOTE | 2017-10-10 10:48 | HHI.PYPN ---
Subjective Remarks Patient was visited today for psychiatric reevaluation, patient is found in his bed, calm, without any agitation, no restlessness, minimally cooperative and verbal. Patient is pleasantly confused and disoriented, reports good mood, he doesn't voice any suicidality or homicidality. As per nurse in charge, last night became a little bit agitated, but he was verbally de-escalate. Review of Systems Except as stated in HPI: all other systems reviewed are Neg Mental Status Examination Consciousness: Alert Orientation: Person Speech: Hesitant, Slow Language: Adequate Attention and Concentration: Adequate Memory: Impaired Affect: Blunt Thought Content: Bizarre thinking Hallucination Type: None Suicidal Ideation: No Suicidal Plan: No Suicidal Intention: No Homicidal Ideation: No Homicidal Plan: No Homicidal Intention: No Insight: Poor Judgment: Poor Results Labs Test 10/10/17 06:30 White Blood Count 8.4 TH/MM3 Red Blood Count 2.83 MIL/MM3 Hemoglobin 8.3 GM/DL Hematocrit 24.4 % Mean Corpuscular Volume 86.0 FL Mean Corpuscular Hemoglobin 29.3 PG Mean Corpuscular Hemoglobin Concent 34.1 % Red Cell Distribution Width 15.7 % Platelet Count 229 TH/MM3 Mean Platelet Volume 7.3 FL Neutrophils (%) (Auto) 71.4 % Lymphocytes (%) (Auto) 15.3 % Monocytes (%) (Auto) 11.4 % Eosinophils (%) (Auto) 1.4 % Basophils (%) (Auto) 0.5 % Neutrophils # (Auto) 6.0 TH/MM3 Lymphocytes # (Auto) 1.3 TH/MM3 Monocytes # (Auto) 1.0 TH/MM3 Eosinophils # (Auto) 0.1 TH/MM3 Basophils # (Auto) 0.0 TH/MM3 CBC Comment DIFF FINAL Differential Comment Blood Urea Nitrogen 62 MG/DL Creatinine 3.99 MG/DL Random Glucose 145 MG/DL Total Protein 7.2 GM/DL Albumin 2.3 GM/DL Calcium Level 7.7 MG/DL Alkaline Phosphatase 83 U/L Aspartate Amino Transf (AST/SGOT) 12 U/L Alanine Aminotransferase (ALT/SGPT) 11 U/L Total Bilirubin 0.3 MG/DL Sodium Level 147 MEQ/L Potassium Level 3.0 MEQ/L Chloride Level 111 MEQ/L Carbon Dioxide Level 29.0 MEQ/L Anion Gap 7 MEQ/L Estimat Glomerular Filtration Rate 15 ML/MIN Date/Time Source Procedure Growth Status 10/08/17 11:00 Blood Peripheral Aerobic Blood Culture - Preliminary NO GROWTH IN 1 DAY Resulted 10/08/17 11:00 Blood Peripheral Anaerobic Blood Culture - Preliminary NO GROWTH IN 1 DAY Resulted 10/07/17 12:00 Stool Stool Stool Occult Blood (BERNARD) - Final HEMOCCULT POSITIVE Complete 10/07/17 12:00 Urine Other Urine Culture - Final S. Aureus Mrsa Enterococcus Faecalis Complete Vitals/IOs Vital Signs Date Time Temp Pulse Resp B/P (MAP) Pulse Ox O2 Delivery O2 Flow Rate FiO2 10/10/17 08:07 Room Air 10/10/17 08:07 68 10/10/17 08:00 98.0 22 155/70 (98) 100 Intake and Output 10/10/17 10/10/17 10/11/17 08:00 16:00 00:00 Intake Total 1220 ml Output Total 725 ml Balance 495 ml Assessment & Plan Problem List: (1) Dementia ICD Codes: F03.90 - Unspecified dementia without behavioral disturbance Status: Chronic Assessment & Plan: Continue Haldol 2 mg IM every 8 hours when necessary aggressive behavior and agitation. Assessment & Plan Estimated LOS: days Justification for Cont. Inpt. Patient does not meet criteria for involuntary psychiatric admission. Problem Qualifiers (1) Dementia: Leo Ragland MD Oct 10, 2017 10:48
--- NOTE | 2017-10-10 10:57 | HHI.FPPN ---
Subjective Remarks Overnight patient had episodes of agitation, was able to be de-escalated verbally. Patient seen and examined this afternoon following EGD and colonoscopy by gastroenterology this morning. Afebrile, vitals stable. 2250 cc UOP noted. Weight stable. Patient very pleasant this afternoon. He is able to answer questions appropriately although remains disoriented to time and place. Does not have any complaints. Denies fevers, CP, SOB, pain anywhere. (Sukhjinder Hamilton MD R2) Objective Vitals Vital Signs Date Time Temp Pulse Resp B/P (MAP) Pulse Ox O2 Delivery O2 Flow Rate FiO2 10/10/17 08:07 Room Air 10/10/17 08:07 68 10/10/17 08:00 98.0 67 22 155/70 (98) 100 10/10/17 04:00 Room Air 10/10/17 04:00 98.4 58 16 140/64 (89) 98 10/10/17 03:56 50 10/10/17 00:00 98.4 58 17 148/65 (92) 99 10/10/17 00:00 Room Air 10/09/17 23:58 61 10/09/17 20:00 Room Air 10/09/17 20:00 98.1 64 18 154/71 (98) 100 10/09/17 16:08 57 10/09/17 16:00 98.5 51 20 171/70 (103) 98 10/09/17 12:00 51 10/09/17 12:00 98.4 62 20 134/63 (86) 97 I/O 10/09/17 10/09/17 10/09/17 10/10/17 10/10/17 10/10/17 07:00 15:00 23:00 07:00 15:00 23:00 Intake Total 719 ml 1143 ml 494 ml 1220 ml Output Total 950 ml 1525 ml 725 ml Balance -231 ml 1143 ml -1031 ml 495 ml Intake Oral 0 ml 360 ml IV Total 719 ml 1143 ml 494 ml 860 ml Output Urine Total 950 ml 1525 ml 725 ml # Bowel Movements 0 0 (Sukhjinder Hamilton MD R2) Result Diagram: 10/10/17 0630 10/10/17 0630 Objective Remarks GENERAL: NAD, awake, not agitated NEURO: Alert. Oriented to self, remains disoriented to place and time. Speech is clear. 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 Moving all extremities. SKIN: Warm and dry. No rashes or erythema. HEAD: Normocephalic. Atraumatic. EYES: EOMI. No scleral icterus. No injection or drainage. ENT: No nasal drainage. Moist mucous membranes. NECK: Supple, trachea midline. No JVD. CARDIOVASCULAR: Regular rate and rhythm without murmurs, rubs, or gallops. Peripheral pulses 2+. RESPIRATORY: Breath sounds clear to auscultation and equal bilaterally, without wheezes, rales, or rhonchi. No accessory muscle use. GASTROINTESTINAL: Abdomen soft, nontender, nondistended. No rebound tenderness. No guarding. Ostomy and urine output bag in place. MUSCULOSKELETAL: No lower extremity edema. (Sukhjinder Hamilton MD R2) A/P Assessment and Plan 67-year-old man admitted under Nieto act after reportedly displaying aggressive behavior towards his family. He is being managed for sepsis due to a UTI, anemia , chronic renal insufficiency. Discharge Planning Awaiting further workup, unclear timetable at this time (Sukhjinder Hamilton MD R2) Attending Attestation Patient seen and examined. Case reviewed and discussed with the resident team. Agree with plan of care as discussed with me and documented in the resident note. (Shima Manzo MD) Problem List: (1) Sepsis ICD Codes: A41.9 - Sepsis, unspecified organism Status: Acute Plan: Patient met criteria for sepsis on admission with elevated pulse and leukocytosis Source due to a urinary tract infection Lactate 0.8 Continue IV fluids per nephrology Continue Levaquin Plan as below (2) UTI (urinary tract infection) ICD Codes: N39.0 - Urinary tract infection, site not specified Status: Acute Plan: Large leuk esterase, many bacteria, 138 WBC, no comment on squam cells Repeat UA reveal moderate leuk esterase, occ bacteria Urine culture growing > 100,000 col of both E. coli and Klebsiella, both pineda- sensitive Repeat urine culture from 10/07 growing > 100,000 col MRSA and E.faecalis Infectious disease consulted due to repeat urine culture growing MRSA > 100,000 col Continue renally dosed Levaquin per ID recommendations Will repeat UA/culture if there are concerns for active infection (3) Anemia ICD Codes: D64.9 - Anemia, unspecified Status: Acute Plan: Consider acute GI bleed vs other acute blood loss anemia Hemoccult positive GI consulted, recs appreciated PPI IV Await results of EGD/colonoscopy performed on 10/10 Hemoglobin currently stable (4) Acute on chronic renal insufficiency ICD Codes: N28.9 - Disorder of kidney and ureter, unspecified; N18.9 - Chronic kidney disease, unspecified Status: Acute Plan: Cr 4.14 on admission, baseline may be around 1.70 Possibly acute on chronic due to prerenal due to dehydration versus diabetic nephropathy vs intrinsic renal pathology, but urine specific gravity was 1.01 IV fluid hydration per nephrology Avoid nephrotoxins as able Monitor I/Os Continue to trend renal function Nephrology consulted, appreciated recommendations Renal ultrasound with nonvisualized left kidney potentially for technical reasons. 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 Low density area in the left lateral aspect of the spleen Abdomen US 10/08 low-density in the spleen, nonspecific Patient may be a candidate for dialysis, nephrology on board (5) Hypokalemia ICD Codes: E87.6 - Hypokalemia Status: Acute Plan: K+ 3.0 Replete orally with 50 mEq KCl Check mg level Consider GI losses through ostomy Patient also receiving D5-NS with potassium chloride per nephrology (6) Dementia ICD Codes: F03.90 - Unspecified dementia without behavioral disturbance Status: Chronic Plan: Per discussion with Dr. Ragland, altered mental status from baseline may have been due to urosepsis Nieto act has been lifted Continue Haldol 2 mg IM q8h if needed for severe agitation Psychiatry consulted (7) Diabetes mellitus ICD Codes: E11.9 - Type 2 diabetes mellitus without complications Status: Chronic Plan: -Low dose ISS -Levemir 10 units BID -BSBG ranging 132-233 (8) Nutrition, metabolism, and development symptoms ICD Codes: R63.8 - Other symptoms and signs concerning food and fluid intake Status: Acute Plan: Fluids: D5 normal saline with potassium chloride per nephrology Electrolytes: plan as above, continue to monitor Nutrition: Regular DVT ppx: Heparin 5,000 units sq q12h (Sukhjinder Hamilton MD R2) Problem Qualifiers (1) Dementia: Kanpareshvanam,Sukhjinder MD R2 Oct 10, 2017 10:57 Shima Manzo MD Oct 10, 2017 15:51
--- NOTE | 2017-10-10 12:31 | GIPROC ---
[facility] [address] [facility]. [facility], [address] EGD PROCEDURE REPORT EXAM DATE: 10/10/2017 PATIENT NAME: Shai Stringer MR #: [id number] BIRTHDATE: 1950 ATTENDING: Guerita Crockett MD ORDER #: [id number] SIGNING TEACHER: Luci Child and Joyce Brantley STATUS: inpatient INDICATIONS: The patient is a 67 yr old male here for an EGD due to epigastric abdominal pain and iron deficiency anemia PROCEDURE PERFORMED: EGD w/ biopsy MEDICATIONS: None and Per Anesthesia. TOPICAL ANESTHETIC: CONSENT: The patient understands the risks and benefits of the procedure and understands that these risks include, but are not limited to: sedation, allergic reaction, infection, perforation and/or bleeding. Alternative means of evaluation and treatment include, among others: physical exam, x-rays, and/or surgical intervention. The patient elects to proceed with this endoscopic procedure. medical equipment was checked for proper function. Hand hygiene and appropriate measures for infection prevention was taken. After the risks, benefits and alternatives of the procedure were thoroughly explained, Informed consent was verified, confirmed and timeout was successfully executed by the treatment team. The patient was anesthetized with topical anesthesia and the Pentax EG-[id number] endoscope was introduced through the mouth and advanced to the second portion of the duodenum. Retroflexed views revealed no abnormalities The gastroscope was then slowly withdrawn and removed. ESOPHAGUS: There was LA Class A esophagitis noted. A biopsy was performed. STOMACH: There was erythematous moderate gastritis in the gastric antrum. A biopsy was performed using cold forceps. Sample sent for histology. DUODENUM: The duodenal mucosa appeared normal in the bulb and second portion of the duodenum. ADVERSE EVENTS: There were no complications. IMPRESSIONS: 1. There was LA Class A esophagitis noted; biopsy was performed 2. Retroflexed views revealed no abnormalities RECOMMENDATIONS: 1. Await biopsy results. Biopsy results will not be ready for 7-10 days. If you don't hear from us in two weeks, call our office for biopsy results. 2. Continue PPI 3. Avoid NSAIDS PATIENT CONDITION: stable DISPOSITION: Inpatient REPEAT EXAM: Return 3 years EGD pending biopsy results Guerita Crockett MD eSigned: Guerita Crockett MD 10/10/2017 12:31 PM cc: PATIENT NAME: Shai Stringer MR#: [id number]
--- NOTE | 2017-10-10 12:35 | GIPROC ---
[facility] [address] [facility]. [facility], [address] COLONOSCOPY PROCEDURE REPORT EXAM DATE: 10/10/2017 PATIENT NAME: Shai Stringer MR #: [id number] BIRTHDATE: 1950 ENDOSCOPIST: Guerita Crockett MD ORDER #: [id number] HARDWARE TECHNICIAN: Luci Child and Joyce Brantley STATUS: inpatient INDICATIONS: The patient is a 67 yr old male here for a colonoscopy due to iron deficiency anemia PROCEDURE PERFORMED: Diagnostic colonoscopy via stoma Sigmoidoscopy, diagnostic MEDICATIONS: None and Per Anesthesia. PREP QUALITY: good PREP TYPE:GoLytely ESTIMATED BLOOD LOSS: None CONSENT: The patient understands the risks and benefits of the procedure and understands that these risks include, but are not limited to: sedation, allergic reaction, infection, perforation and/or bleeding. Alternative means of evaluation and treatment include, among others: physical exam, x-rays, and/or surgical intervention. The patient elects to proceed with this endoscopic procedure. medical equipment was checked for proper function. Hand hygiene and appropriate measures for infection prevention was taken. After the risks, benefits and alternatives of the procedure were thoroughly explained, Informed consent was verified, confirmed and timeout was successfully executed by the treatment team. A digital exam revealed external hemorrhoids The New ItemEG-2990i (Std Gastro) endoscope was introduced through the anus and advanced to the cecum, which was identified by both the appendix and ileocecal valve. The instrument was then slowly withdrawn as the colon was fully examined. COLON FINDINGS: Scope advanced from the stoma to the ceum. Nl exam. Then rectal exam performed revealing hemorrhoids. Poor prep on sigmoidoscopy. Retroflexed views revealed internal hemorrhoids and Retroflexed views revealed medium internal hemorrhoids The scope was then completely withdrawn from the patient and the procedure terminated. ADVERSE EVENTS: There were no complications. IMPRESSIONS: 1. Scope advanced from the stoma to the ceum. Nl exam. Then rectal exam performed revealing hemorrhoids. Poor prep on sigmoidoscopy 2. Retroflexed views revealed internal hemorrhoids 3. Retroflexed views revealed medium internal hemorrhoids 4. Revealed external hemorrhoids RECOMMENDATIONS: Continue surveillance RECALL: Return 5 years Colonoscopy Guerita Crockett MD eSigned: Guerita Crockett MD 10/10/2017 12:35 PM cc:
--- NOTE | 2017-10-10 14:03 | HHI.NPPN ---
Subjective History of Present Illness Patient is 67-year-old male with history of urostomy and a cancer status post cystectomy not in acute renal failure Additional Remarks Patient is more alert, today, still not eating much, no SOB. Objective Data Data Vital Signs Date Time Temp Pulse Resp B/P (MAP) Pulse Ox O2 Delivery O2 Flow Rate FiO2 10/10/17 13:00 97.4 53 20 137/62 (87) 99 10/10/17 11:06 100 Room Air 10/10/17 11:06 98.0 63 18 157/73 (101) 100 10/10/17 08:07 Room Air 10/10/17 08:07 68 10/10/17 08:00 98.0 67 22 155/70 (98) 100 10/10/17 04:00 Room Air 10/10/17 04:00 98.4 58 16 140/64 (89) 98 10/10/17 03:56 50 10/10/17 00:00 98.4 58 17 148/65 (92) 99 10/10/17 00:00 Room Air 10/09/17 23:58 61 10/09/17 20:00 Room Air 10/09/17 20:00 98.1 64 18 154/71 (98) 100 10/09/17 16:08 57 10/09/17 16:00 98.5 51 20 171/70 (103) 98 -: 10/10/17 0630 10/10/17 0630 Physical Exam General Appearance: Well Developed, No Acute Distress, Comfortable Neck Neck Exam: Neck Supple Pulmonary Resp Exam: Decreased Bases Cardiology CV Exam: Regular Gastrointestinal/Abdomen GI Exam: Soft (urostomy and colostomy in place) Extremeties Extremities Exam: No Edema Neurologic Neuro Exam: Alert, Awake, Oriented Assessment/Plan Problem List: (1) Acute on chronic renal insufficiency ICD Codes: N28.9 - Disorder of kidney and ureter, unspecified; N18.9 - Chronic kidney disease, unspecified Status: Acute Plan: Patient has output however he does have GI losses better BUN/cr bicarb improved no current indication to do dialysis need to be hydrated Creatinine slightly better, K is low. Acidosis is better. (2) Dementia ICD Codes: F03.90 - Unspecified dementia without behavioral disturbance Status: Chronic (3) Hyperchloremic metabolic acidosis ICD Codes: E87.2 - Acidosis Plan: Patient has urostomy and colostomy is losing bicarbonate Problem Qualifiers (1) Dementia: Brooks Bob MD Oct 10, 2017 14:02
[2017-10-10] MEDS ORDERED: DO NOT ADM ANY ANTICOAGULANT DRUGS PRN (14:15)
[2017-10-10] MEDS ORDERED: POTASSIUM CHLORIDE 10 MEQ CONTROLLED RELEASE TAB PO ONE (15:30)
[2017-10-10] MEDS: LEVOFLOXACIN 250 MG TAB PO SCH (17:36)
[2017-10-11] VITALS (8 sets, daily range): BP systolic 140–177; BP diastolic 65–78; PULSE 58–92; RESP 18–24; TEMP 97.3–98.6; O2SAT 97–100
[2017-10-11] MEDS: D5-NS + KCL 20 MEQ INJ 1,000 ML IV SCH ×2 (06:17→15:56)
[2017-10-11 07:34] LABS: AUTOMATED NEUTROPHIL # 8.3 TH/MM3 (1.8-7.7); BASOPHIL % 0.2 % (0.0-2.0); EOSINOPHIL % 0.3 % (0.0-4.0); HEMO FLAGS DIFF FINAL; LYMPH % 12.6 % (9.0-44.0); LYMPHOCYTE # 1.3 TH/MM3 (1.0-4.8); MEAN CELL VOLUME 86.4 FL (80.0-100.0); MEAN CORPUSCULAR HEMOGLOBIN 28.6 PG (27.0-34.0); MEAN CORPUSCULAR HGB CONC 33.1 % (32.0-36.0); MONO % 7.4 % (0.0-8.0); NEUT % 79.5 % (16.0-70.0); PLATELET COUNT 233 TH/MM3 (150-450); RED CELL DISTRIBUTION WIDTH 15.4 % (11.6-17.2); WHITE BLOOD COUNT 10.4 TH/MM3 (4.0-11.0)
[2017-10-11 07:45] LABS: INTERNATIONAL NORMALIZED RATIO 1.2 RATIO; PROTHROMBIN TIME - PATIENT 12.1 SEC (9.8-11.6)
[2017-10-11 08:00] LABS: BICARBONATE 23.8 MEQ/L (21.0-32.0); MAGNESIUM 1.4 MG/DL (1.5-2.5); POTASSIUM 3.4 MEQ/L (3.5-5.1)
[2017-10-11] MEDS: INSULIN ASPART SUPPLEMENTAL SCALE SQ SCH ×4 (08:00→21:00)
[2017-10-11] MEDS: HEPARIN SODIUM - SQ 10,000 UNITS/ML VIAL SQ SCH ×2 (08:29→21:18)
[2017-10-11] MEDS: ASPIRIN 325 MG TAB PO SCH (08:30)
[2017-10-11] MEDS: DIGOXIN 0.125 MG TAB PO SCH (08:30)
[2017-10-11] MEDS: INSULIN DETEMIR 100 UNITS/ML VIAL SQ SCH ×2 (08:30→21:19)
[2017-10-11] MEDS: METOPROLOL TARTRATE 25 MG TAB PO SCH ×2 (08:30→21:18)
[2017-10-11] MEDS: SODIUM CHLORIDE 0.9% FLUSH 10 ML FLUSH IV FLUSH SCH ×2 (09:14→21:18)
[2017-10-11] MEDS: PANTOPRAZOLE SODIUM 40 MG VIAL IV PUSH SCH (09:14)
--- NOTE | 2017-10-11 10:13 | HHI.FPPN ---
Subjective Remarks Overnight patient had episode of agitation per resident. Patient received 1x dose 2mg IM haldol and was put on wrists restraints. Pt is lying in bed. Nurse at bedside. Afebrile. VSS. Patient is pleasant, but unable to answer questions. (Bela Cortes MD R1) Objective Vitals Vital Signs Date Time Temp Pulse Resp B/P (MAP) Pulse Ox O2 Delivery O2 Flow Rate FiO2 10/11/17 08:00 97.3 83 18 163/71 (101) 100 10/11/17 07:50 Room Air 10/11/17 04:17 86 10/11/17 04:00 97.4 58 24 153/72 (99) 98 10/11/17 03:57 65 10/11/17 00:00 97.9 64 22 166/78 (107) 100 10/10/17 20:08 70 10/10/17 20:00 98.1 62 20 160/70 (100) 99 10/10/17 20:00 Room Air 10/10/17 16:00 55 10/10/17 16:00 97.2 60 20 167/76 (106) 100 10/10/17 13:00 97.4 53 20 137/62 (87) 99 10/10/17 12:58 98.0 59 18 107/59 (75) 99 Room Air 10/10/17 12:39 98.0 58 18 115/70 (85) 97 Room Air 10/10/17 11:06 100 Room Air 10/10/17 11:06 98.0 63 18 157/73 (101) 100 I/O 10/10/17 10/10/17 10/10/17 10/11/17 10/11/17 10/11/17 07:00 15:00 23:00 07:00 15:00 23:00 Intake Total 1220 ml 200 ml 1200 ml 580 ml Output Total 725 ml 800 ml 400 ml Balance 495 ml 200 ml 400 ml 180 ml Intake Oral 360 ml 480 ml 180 ml IV Total 860 ml 720 ml 400 ml Other 200 ml Output Urine Total 725 ml 800 ml 400 ml # Bowel Movements 0 (Bela Cortes MD R1) Result Diagram: 10/11/17 0709 10/11/17 0709 Objective Remarks GENERAL: NAD, awake, not agitated NEURO: Alert. Oriented to self, remains disoriented to place and time. Speech is clear. multi share program coordinator grossly intact. Moving all extremities. SKIN: Warm and dry. No rashes or erythema. HEAD: Normocephalic. Atraumatic. EYES: EOMI. No scleral icterus. No injection or drainage. ENT: No nasal drainage. Moist mucous membranes. NECK: Supple, trachea midline. No JVD. CARDIOVASCULAR: Regular rate and rhythm without murmurs, rubs, or gallops. Peripheral pulses 2+. RESPIRATORY: Breath sounds clear to auscultation and equal bilaterally, without wheezes, rales, or rhonchi. No accessory muscle use. GASTROINTESTINAL: Abdomen soft, nontender, nondistended. No rebound tenderness. No guarding. Ostomy and urine output bag in place. MUSCULOSKELETAL: No lower extremity edema. (Bela Cortes MD R1) A/P Assessment and Plan 67-year-old man admitted under Nieto act after reportedly displaying aggressive behavior towards his family. He is being managed for sepsis due to a UTI, anemia , chronic renal insufficiency. Discharge Planning awaiting GI and Nephrology clearance (Bela Cortes MD R1) Attending Attestation Patient seen and examined. Case reviewed and discussed with the resident team. Agree with plan of care as discussed with me and documented in the resident note. (Shima Manzo MD) Problem List: (1) Sepsis ICD Codes: A41.9 - Sepsis, unspecified organism Status: Acute Plan: Patient met criteria for sepsis on admission with elevated pulse and leukocytosis Source due to a urinary tract infection Lactate 0.8 Continue IV fluids per nephrology Continue Levaquin Plan as below (2) UTI (urinary tract infection) ICD Codes: N39.0 - Urinary tract infection, site not specified Status: Acute Plan: Large leuk esterase, many bacteria, 138 WBC, no comment on squam cells Repeat UA reveal moderate leuk esterase, occ bacteria Urine culture growing > 100,000 col of both E. coli and Klebsiella, both pineda- sensitive Repeat urine culture from 10/07 growing > 100,000 col MRSA and E.faecalis Infectious disease consulted due to repeat urine culture growing MRSA > 100,000 col Continue renally dosed Levaquin per ID recommendations Will repeat UA/culture if there are concerns for active infection (3) Anemia ICD Codes: D64.9 - Anemia, unspecified Status: Acute Plan: Consider acute GI bleed vs other acute blood loss anemia Hemoccult positive GI consulted, recs appreciated PPI 40mg PO daily Await results of EGD/colonoscopy performed on 10/10 Hemoglobin currently stable (4) Acute on chronic renal insufficiency ICD Codes: N28.9 - Disorder of kidney and ureter, unspecified; N18.9 - Chronic kidney disease, unspecified Status: Acute Plan: Cr 4.14 on admission, baseline may be around 1.70 Possibly acute on chronic due to prerenal due to dehydration versus diabetic nephropathy vs intrinsic renal pathology, but urine specific gravity was 1.01 IV fluid hydration per nephrology Avoid nephrotoxins as able Monitor I/Os Continue to trend renal function Nephrology consulted, appreciated recommendations Renal ultrasound with nonvisualized left kidney potentially for technical reasons. 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 Low density area in the left lateral aspect of the spleen Abdomen US 10/08 low-density in the spleen, nonspecific Patient may be a candidate for dialysis, nephrology on board (5) Hypokalemia ICD Codes: E87.6 - Hypokalemia Status: Acute Plan: K+ 3.4 today Mg level of 1.4 Consider GI losses through ostomy Patient also receiving D5-NS with potassium chloride per nephrology (6) Dementia ICD Codes: F03.90 - Unspecified dementia without behavioral disturbance Status: Chronic Plan: Per discussion with Dr. Ragland, altered mental status from baseline may have been due to urosepsis Nieto act has been lifted Increase Haldol 5 mg IM q8h if needed for severe agitation Psychiatry consulted (7) Diabetes mellitus ICD Codes: E11.9 - Type 2 diabetes mellitus without complications Status: Chronic Plan: -Low dose ISS -Levemir 10 units BID -BSBG ranging 132-233 (8) Nutrition, metabolism, and development symptoms ICD Codes: R63.8 - Other symptoms and signs concerning food and fluid intake Status: Acute Plan: Fluids: D5 normal saline with potassium chloride per nephrology Electrolytes: plan as above, continue to monitor Nutrition: Regular DVT ppx: Heparin 5,000 units sq q12h (Bela Cortes MD R1) Problem Qualifiers (1) Dementia: Bela Cortes MD R1 Oct 11, 2017 10:13 Shima Manzo MD Oct 11, 2017 16:04
--- NOTE | 2017-10-11 14:23 | HHI.NPPN ---
Subjective History of Present Illness Patient is 67-year-old male with history of urostomy and a cancer status post cystectomy not in acute renal failure Additional Remarks Patient is more alert, today,doing better Objective Data Data Vital Signs Date Time Temp Pulse Resp B/P (MAP) Pulse Ox O2 Delivery O2 Flow Rate FiO2 10/11/17 12:00 98.5 75 20 177/77 (110) 99 10/11/17 08:00 97.3 83 18 163/71 (101) 100 10/11/17 08:00 89 10/11/17 07:50 Room Air 10/11/17 04:17 86 10/11/17 04:00 97.4 58 24 153/72 (99) 98 10/11/17 03:57 65 10/11/17 00:00 97.9 64 22 166/78 (107) 100 10/10/17 20:08 70 10/10/17 20:00 98.1 62 20 160/70 (100) 99 10/10/17 20:00 Room Air 10/10/17 16:00 55 10/10/17 16:00 97.2 60 20 167/76 (106) 100 -: 10/11/17 0709 10/11/17 0709 Physical Exam General Appearance: Well Developed, No Acute Distress, Comfortable Neck Neck Exam: Neck Supple Pulmonary Resp Exam: Decreased Bases Cardiology CV Exam: Regular Gastrointestinal/Abdomen GI Exam: Soft (urostomy and colostomy in place) Extremeties Extremities Exam: No Edema Neurologic Neuro Exam: Alert, Awake, Oriented Assessment/Plan Problem List: (1) Acute on chronic renal insufficiency ICD Codes: N28.9 - Disorder of kidney and ureter, unspecified; N18.9 - Chronic kidney disease, unspecified Status: Acute Plan: Patient doing better resolving ARF with hydration K replaced replace Mg as well follow BMP (2) Dementia ICD Codes: F03.90 - Unspecified dementia without behavioral disturbance Status: Chronic (3) Hyperchloremic metabolic acidosis ICD Codes: E87.2 - Acidosis Plan: Patient has urostomy and colostomy is losing bicarbonate Problem Qualifiers (1) Dementia: Brooks Bob MD Oct 11, 2017 14:23
[2017-10-11] MEDS ORDERED: MAGNESIUM SULFATE 1 GM PREMIX 100 ML IV ONE (14:30)
--- NOTE | 2017-10-11 14:43 | HHI.GIFU ---
Subjective Remarks Pt resting in bed comfortably, he remains confused, in no apparent distress. at bedside. Colostomy bag has a moderate amount of light colored, liquid stools. Per pt has not been eating. (Tanya Alex) Objective Vitals I&O Vital Signs Date Time Temp Pulse Resp B/P (MAP) Pulse Ox O2 Delivery O2 Flow Rate FiO2 10/11/17 12:00 98.5 75 20 177/77 (110) 99 10/11/17 08:00 97.3 83 18 163/71 (101) 100 10/11/17 08:00 89 10/11/17 07:50 Room Air 10/11/17 04:17 86 10/11/17 04:00 97.4 58 24 153/72 (99) 98 10/11/17 03:57 65 10/11/17 00:00 97.9 64 22 166/78 (107) 100 10/10/17 20:08 70 10/10/17 20:00 98.1 62 20 160/70 (100) 99 10/10/17 20:00 Room Air 10/10/17 16:00 55 10/10/17 16:00 97.2 60 20 167/76 (106) 100 I/O 10/10/17 10/10/17 10/10/17 10/11/17 10/11/17 10/11/17 07:00 15:00 23:00 07:00 15:00 23:00 Intake Total 1220 ml 200 ml 1200 ml 580 ml Output Total 725 ml 800 ml 400 ml Balance 495 ml 200 ml 400 ml 180 ml Intake Oral 360 ml 480 ml 180 ml IV Total 860 ml 720 ml 400 ml Other 200 ml Output Urine Total 725 ml 800 ml 400 ml # Bowel Movements 0 Laboratory Laboratory Tests Test 10/11/17 07:09 White Blood Count 10.4 Red Blood Count 2.90 Hemoglobin 8.3 Hematocrit 25.0 Mean Corpuscular Volume 86.4 Mean Corpuscular Hemoglobin 28.6 Mean Corpuscular Hemoglobin Concent 33.1 Red Cell Distribution Width 15.4 Platelet Count 233 Mean Platelet Volume 6.9 Neutrophils (%) (Auto) 79.5 Lymphocytes (%) (Auto) 12.6 Monocytes (%) (Auto) 7.4 Eosinophils (%) (Auto) 0.3 Basophils (%) (Auto) 0.2 Neutrophils # (Auto) 8.3 Lymphocytes # (Auto) 1.3 Monocytes # (Auto) 0.8 Eosinophils # (Auto) 0.0 Basophils # (Auto) 0.0 CBC Comment DIFF FINAL Differential Comment Prothrombin Time 12.1 Prothromb Time International Ratio 1.2 Blood Urea Nitrogen 47 Creatinine 3.64 Random Glucose 86 Calcium Level 7.7 Magnesium Level 1.4 Sodium Level 150 Potassium Level 3.4 Chloride Level 116 Carbon Dioxide Level 23.8 Anion Gap 10 Estimat Glomerular Filtration Rate 17 Date/Time Source Procedure Growth Status 10/08/17 11:00 Blood Peripheral Aerobic Blood Culture - Preliminary NO GROWTH IN 3 DAYS Resulted 10/08/17 11:00 Blood Peripheral Anaerobic Blood Culture - Preliminary NO GROWTH IN 3 DAYS Resulted 10/07/17 12:00 Stool Stool Stool Occult Blood (BERNARD) - Final HEMOCCULT POSITIVE Complete 10/07/17 12:00 Urine Other Urine Culture - Final S. Aureus Mrsa Enterococcus Faecalis Complete Imaging Last Impressions Abdomen Ultrasound 10/08/17 0000 Signed Impressions: Service Date/Time: Sunday, October 08, 2017 08:07 - CONCLUSION: Very limited study. Only the splenic artery and hepatic arteries are visualized. SMA not visualized. Andrea Roman MD Chest X-Ray 10/07/17 0000 Signed Impressions: Service Date/Time: Saturday, October 07, 2017 11:53 - CONCLUSION: No acute disease. Chuy Penny MD FACR Abdomen/Pelvis CT 10/06/17 0000 Signed Impressions: Service Date/Time: September 14:54 - CONCLUSION: 1. Status post cystectomy. 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 2. Absence of the left kidney. 3. Mild fullness of the right renal collecting system. 4. 5 cm low density area seen in the left lateral aspect of the spleen. This is nonspecific. This could represent a process such as an infarct. Neoplastic disease cannot be ruled out. Yasir Wong MD Renal Ultrasound 10/05/17 0000 Signed Impressions: Service Date/Time: Thursday, October 05, 2017 11:03 - CONCLUSION: Nonvisualized left kidney potentially for technical reasons. No hydronephrosis on the right Yasir Garza MD Physical Exam HEENT; Normocephalic; atraumatic. CHEST: Diminished CARDIAC: RRR ABDOMEN: Soft, nontender, bowel sounds active x 4. Colostomy bag with moderate amount of light colored, loose stool. EXTREMITIES: No clubbing, cyanosis, or edema. SKIN: Normal; no rash; no jaundice. 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 Colonoscopy from stoma to the cecum (10/10) --> Normal exam. Flex sigmoidoscopy - Poor prep. EGD --> Class A esophagitis. Pathology pending. No obvious source of GIB. Repeat EGD recommended in 3 years. Repeat colon in 5 years. Continue to monitor H/H If continues to drop then would recommend capsule endoscopy outpatient or if significant then bleeding scan inpatient. H/H stable since Oct 08- currently 8.3/25.0. Has not received blood transfusion during hospitalization. PPI switched from IV to PO. - Sepsis UTI, acute on chronic renal insufficiency, hx bladder ca, hypokalemia per attending PLAN - PPI switched from IV to PO - Monitor labs - Transfuse as need - Notify GI of any active bleeding- may consider bleeding scan - Capsule endoscopy outpatient if H/H continues to drop - Pathology from EGD pending - Repeat EGD in 3 years - Repeat colonoscopy in 5 years - Further recommendations to follow This pt has been seen and examined by Dr. Crockett and myself and this note is written on his behalf. (Tanya Alex) Physician Comments Seen and examined with KAMALA, no active bleeding reported. s/p egd/colonoscopy/ sigmoidoscopy. Consider SBFT and capsule endoscopy if any evidence of bleeding. Monitor labs. (Guerita Crockett MD) Tanya Alex Oct 11, 2017 14:43 Guerita Crockett MD Oct 11, 2017 15:27
[2017-10-11] MEDS: QUEtiapine FUMARATE 25 MG TAB PO SCH ×2 (17:04→21:18)
--- NOTE | 2017-10-11 17:44 | HHI.IDPN ---
Subjective Subjective Remarks pt is confused afebrile On RA Antibiotics levaquine Allergies: Coded Allergies: No Known Allergies (Verified Adverse Reaction, Unknown, 10/04/17) Objective . Vital Signs Date Time Temp Pulse Resp B/P (MAP) Pulse Ox O2 Delivery O2 Flow Rate FiO2 10/11/17 16:00 74 10/11/17 16:00 98.0 74 20 153/70 (97) 98 10/11/17 12:00 92 10/11/17 12:00 98.5 75 20 177/77 (110) 99 10/11/17 08:00 97.3 83 18 163/71 (101) 100 10/11/17 08:00 89 10/11/17 07:50 Room Air 10/11/17 04:17 86 10/11/17 04:00 97.4 58 24 153/72 (99) 98 10/11/17 03:57 65 10/11/17 00:00 97.9 64 22 166/78 (107) 100 10/10/17 20:08 70 10/10/17 20:00 98.1 62 20 160/70 (100) 99 10/10/17 20:00 Room Air 10/11/17 10/11/17 10/12/17 15:00 23:00 07:00 Intake Total 1080 ml Output Total 400 ml Balance 680 ml Intake Oral 480 ml IV Total 600 ml Output Urine Total 400 ml # Voids 1 # Bowel Movements 0 . Laboratory Tests Test 10/10/17 06:30 10/11/17 07:09 White Blood Count 8.4 TH/MM3 10.4 TH/MM3 Red Blood Count 2.83 MIL/MM3 2.90 MIL/MM3 Hemoglobin 8.3 GM/DL 8.3 GM/DL Hematocrit 24.4 % 25.0 % Mean Corpuscular Volume 86.0 FL 86.4 FL Mean Corpuscular Hemoglobin 29.3 PG 28.6 PG Mean Corpuscular Hemoglobin Concent 34.1 % 33.1 % Red Cell Distribution Width 15.7 % 15.4 % Platelet Count 229 TH/MM3 233 TH/MM3 Mean Platelet Volume 7.3 FL 6.9 FL Neutrophils (%) (Auto) 71.4 % 79.5 % Lymphocytes (%) (Auto) 15.3 % 12.6 % Monocytes (%) (Auto) 11.4 % 7.4 % Eosinophils (%) (Auto) 1.4 % 0.3 % Basophils (%) (Auto) 0.5 % 0.2 % Neutrophils # (Auto) 6.0 TH/MM3 8.3 TH/MM3 Lymphocytes # (Auto) 1.3 TH/MM3 1.3 TH/MM3 Monocytes # (Auto) 1.0 TH/MM3 0.8 TH/MM3 Eosinophils # (Auto) 0.1 TH/MM3 0.0 TH/MM3 Basophils # (Auto) 0.0 TH/MM3 0.0 TH/MM3 CBC Comment DIFF FINAL DIFF FINAL Differential Comment Laboratory Tests Test 10/10/17 06:30 10/11/17 07:09 Blood Urea Nitrogen 62 MG/DL 47 MG/DL Creatinine 3.99 MG/DL 3.64 MG/DL Random Glucose 145 MG/DL 86 MG/DL Total Protein 7.2 GM/DL Albumin 2.3 GM/DL Calcium Level 7.7 MG/DL 7.7 MG/DL Alkaline Phosphatase 83 U/L Aspartate Amino Transf (AST/SGOT) 12 U/L Alanine Aminotransferase (ALT/SGPT) 11 U/L Total Bilirubin 0.3 MG/DL Sodium Level 147 MEQ/L 150 MEQ/L Potassium Level 3.0 MEQ/L 3.4 MEQ/L Chloride Level 111 MEQ/L 116 MEQ/L Carbon Dioxide Level 29.0 MEQ/L 23.8 MEQ/L Anion Gap 7 MEQ/L 10 MEQ/L Estimat Glomerular Filtration Rate 15 ML/MIN 17 ML/MIN Magnesium Level 1.4 MG/DL Imaging Last Impressions Abdomen Ultrasound 10/08/17 0000 Signed Impressions: Service Date/Time: Sunday, October 08, 2017 08:07 - CONCLUSION: Very limited study. Only the splenic artery and hepatic arteries are visualized. SMA not visualized. Andrea Roman MD Chest X-Ray 10/07/17 0000 Signed Impressions: Service Date/Time: Saturday, October 07, 2017 11:53 - CONCLUSION: No acute disease. Chuy Penny MD FACR Abdomen/Pelvis CT 10/06/17 0000 Signed Impressions: Service Date/Time: September 14:54 - CONCLUSION: 1. Status post cystectomy. 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 2. Absence of the left kidney. 3. Mild fullness of the right renal collecting system. 4. 5 cm low density area seen in the left lateral aspect of the spleen. This is nonspecific. This could represent a process such as an infarct. Neoplastic disease cannot be ruled out. Yasir Wong MD Renal Ultrasound 10/05/17 0000 Signed Impressions: Service Date/Time: Thursday, October 05, 2017 11:03 - CONCLUSION: Nonvisualized left kidney potentially for technical reasons. No hydronephrosis on the right Yasir Garza MD Physical Exam CONSTITUTIONAL/GENERAL: This is an adequately nourished patient, in no apparent distress. TUBES/LINES/DRAINS: SKIN: No jaundice, rashes, or lesions. Skin temperature appropriate. Not diaphoretic. CARDIOVASCULAR: Regular rate and rhythm without murmurs, gallops, or rubs. No JVD. Peripheral pulses symmetric. RESPIRATORY/CHEST: Symmetric, unlabored respirations. Clear to auscultation. Breath sounds equal bilaterally. No wheezes, rales, or rhonchi. GASTROINTESTINAL: Abdomen soft, non-tender, nondistended. No hepato-splenomegaly , or palpable masses. No guarding. Bowel sounds present. Colostomy in place with liquid light brown stool with visible blood present in LLQ Ileostomy in place with clear urine in collection bag MUSCULOSKELETAL: Extremities without clubbing, cyanosis, or edema. No joint tenderness or effusion noted. No calf tenderness. No mottling or clubbing. NEUROLOGICAL: Awake and alert. Motor and sensory grossly within normal limits. Follows commands. Confused, speech incoherent . Moves all extremities. PSYCHIATRIC: calm, cooperative Assessment & Plan Remarks Acute renal failure UTI, Kleb Alex [email or web address] Complicated UTI in a pt with ileostomy MRSA in urine ? clin significance - not a usual urinary or GI pathogen; presence can be usually explained either 2/2 MRSA bacteremia or contamination cont levaquine x 2 weeks repeat UA/urine clx if concerns for ongoing infx (fever, leukocytosis, mental stus change, hemodynamic instability dw Virgen Godinez MD Oct 11, 2017 17:44
[2017-10-12] VITALS (8 sets, daily range): BP systolic 128–172; BP diastolic 64–85; PULSE 56–116; RESP 19–22; TEMP 97.5–98.6; O2SAT 95–100
[2017-10-12] MEDS: D5-NS + KCL 20 MEQ INJ 1,000 ML IV SCH (05:42)
[2017-10-12] MEDS: INSULIN ASPART SUPPLEMENTAL SCALE SQ SCH ×4 (08:00→21:00)
[2017-10-12] MEDS: HEPARIN SODIUM - SQ 10,000 UNITS/ML VIAL SQ SCH ×2 (08:09→20:34)
[2017-10-12] MEDS: ASPIRIN 325 MG TAB PO SCH (08:10)
[2017-10-12] MEDS: PANTOPRAZOLE SOD 40 MG DELAYED RELEASE TAB PO SCH (08:10)
[2017-10-12] MEDS: METOPROLOL TARTRATE 25 MG TAB PO SCH ×2 (08:10→20:34)
[2017-10-12] MEDS: QUEtiapine FUMARATE 25 MG TAB PO SCH ×2 (08:10→21:51)
[2017-10-12] MEDS: DIGOXIN 0.125 MG TAB PO SCH (08:10)
[2017-10-12] MEDS: INSULIN DETEMIR 100 UNITS/ML VIAL SQ SCH ×2 (08:11→21:00)
[2017-10-12] MEDS: SODIUM CHLORIDE 0.9% FLUSH 10 ML FLUSH IV FLUSH SCH ×2 (08:11→20:33)
[2017-10-12 09:12] LABS: HEMATOCRIT 24.2 % (39.0-51.0); MEAN CELL VOLUME 86.9 FL (80.0-100.0); MEAN CORPUSCULAR HEMOGLOBIN 29.2 PG (27.0-34.0); MEAN CORPUSCULAR HGB CONC 33.6 % (32.0-36.0); PLATELET COUNT 226 TH/MM3 (150-450); RED BLOOD COUNT 2.78 MIL/MM3 (4.50-5.90); RED CELL DISTRIBUTION WIDTH 15.7 % (11.6-17.2); REVIEW FLAG FINAL; WHITE BLOOD COUNT 7.4 TH/MM3 (4.0-11.0)
[2017-10-12 09:32] LABS: BICARBONATE 22.6 MEQ/L (21.0-32.0); MAGNESIUM 1.6 MG/DL (1.5-2.5); POTASSIUM 3.7 MEQ/L (3.5-5.1)
[2017-10-12 09:44] LABS: CALCIUM-PROTEIN CORRECTED 7.5 MG/DL (8.5-10.1)
--- NOTE | 2017-10-12 12:11 | HHI.NPPN ---
Subjective History of Present Illness Patient is 67-year-old male with history of urostomy and a cancer status post cystectomy not in acute renal failure Additional Remarks Patient is confused still per nursing staff Objective Data Data Vital Signs Date Time Temp Pulse Resp B/P (MAP) Pulse Ox O2 Delivery O2 Flow Rate FiO2 10/12/17 08:00 97.5 116 22 172/72 (105) 100 10/12/17 07:15 78 10/12/17 07:15 Room Air 10/12/17 04:00 98.6 73 19 150/66 (94) 95 10/12/17 04:00 Room Air 10/12/17 04:00 56 10/12/17 00:00 Room Air 10/12/17 00:00 98.3 66 19 153/70 (97) 98 10/12/17 00:00 78 10/11/17 20:00 85 10/11/17 20:00 98.6 89 20 140/65 (90) 97 10/11/17 20:00 Room Air 10/11/17 16:00 74 10/11/17 16:00 98.0 74 20 153/70 (97) 98 -: 10/12/17 0810 10/12/17 0810 Physical Exam General Appearance: Well Developed, No Acute Distress, Comfortable Neck Neck Exam: Neck Supple Pulmonary Resp Exam: Decreased Bases Cardiology CV Exam: Regular Gastrointestinal/Abdomen GI Exam: Soft (urostomy and colostomy in place) Extremeties Extremities Exam: No Edema Neurologic Neuro Exam: Alert, Awake, Oriented Assessment/Plan Problem List: (1) Acute on chronic renal insufficiency ICD Codes: N28.9 - Disorder of kidney and ureter, unspecified; N18.9 - Chronic kidney disease, unspecified Status: Acute Plan: Patient doing better resolving ARF with hydration Creatinine is slowly declining 3.56 Remains nonoliguric I encouraged him to eat and drink properly Consulting the dehydration was addressed Magnesium and potassium better after replacement (2) Dementia ICD Codes: F03.90 - Unspecified dementia without behavioral disturbance Status: Chronic (3) Hyperchloremic metabolic acidosis ICD Codes: E87.2 - Acidosis Plan: Patient has urostomy and colostomy is losing bicarbonate Problem Qualifiers (1) Dementia: Brooks Bob MD Oct 12, 2017 12:11
--- NOTE | 2017-10-12 13:53 | HHI.FPPN ---
Subjective Remarks No acute events overnight. Afebrile. Patient seen and examined this morning. NAD. Patient remains pleasant, however not able to consistently answer questions. 2300cc of UOP past 24 hours. (Sukhjinder Hamilton MD R2) Objective Vitals Vital Signs Date Time Temp Pulse Resp B/P (MAP) Pulse Ox O2 Delivery O2 Flow Rate FiO2 10/12/17 12:00 97.6 64 20 159/74 (102) 98 10/12/17 08:00 97.5 116 22 172/72 (105) 100 10/12/17 07:15 78 10/12/17 07:15 Room Air 10/12/17 04:00 98.6 73 19 150/66 (94) 95 10/12/17 04:00 Room Air 10/12/17 04:00 56 10/12/17 00:00 Room Air 10/12/17 00:00 98.3 66 19 153/70 (97) 98 10/12/17 00:00 78 10/11/17 20:00 85 10/11/17 20:00 98.6 89 20 140/65 (90) 97 10/11/17 20:00 Room Air 10/11/17 16:00 74 10/11/17 16:00 98.0 74 20 153/70 (97) 98 I/O 10/11/17 10/11/17 10/11/17 10/12/17 10/12/17 10/12/17 07:00 15:00 23:00 07:00 15:00 23:00 Intake Total 580 ml 1180 ml 1200 ml Output Total 400 ml 400 ml 1900 ml Balance 180 ml 780 ml -700 ml Intake Oral 180 ml 480 ml 200 ml IV Total 400 ml 700 ml 1000 ml Output Urine Total 400 ml 400 ml 1900 ml # Voids 1 # Bowel Movements 1 (Sukhjinder Hamilton MD R2) Result Diagram: 10/12/17 0810 10/12/17 0810 Objective Remarks GENERAL: NAD, awake, not agitated NEURO: Alert. Oriented to self, remains disoriented to place and time. Speech is clear. whipper beater grossly intact. Moving all extremities. SKIN: Warm and dry. No rashes or erythema. HEAD: Normocephalic. Atraumatic. EYES: EOMI. No scleral icterus. No injection or drainage. ENT: No nasal drainage. Moist mucous membranes. NECK: Supple, trachea midline. No JVD. CARDIOVASCULAR: Regular rate and rhythm without murmurs, rubs, or gallops. Peripheral pulses 2+. RESPIRATORY: Breath sounds clear to auscultation and equal bilaterally, without wheezes, rales, or rhonchi. No accessory muscle use. GASTROINTESTINAL: Abdomen soft, nontender, nondistended. No rebound tenderness. No guarding. Ostomy and urine output bag in place. MUSCULOSKELETAL: No lower extremity edema. (Sukhjinder Hamilton MD R2) A/P Assessment and Plan 67-year-old man admitted under Nieto act after reportedly displaying aggressive behavior towards his family. He is being managed for sepsis due to a UTI, anemia , chronic renal insufficiency. Discharge Planning Case management assisting with discharge planning and placement to SNF (Sukhjinder Hamilton MD R2) Attending Attestation Patient seen and examined. Case reviewed and discussed with the resident team. Agree with plan of care as discussed with me and documented in the resident note. (Shima Manzo MD) Problem List: (1) Sepsis ICD Codes: A41.9 - Sepsis, unspecified organism Status: Acute Plan: Patient met criteria for sepsis on admission with elevated pulse and leukocytosis Source due to a urinary tract infection Lactate 0.8 Continue Levaquin Plan as below (2) UTI (urinary tract infection) ICD Codes: N39.0 - Urinary tract infection, site not specified Status: Acute Plan: Large leuk esterase, many bacteria, 138 WBC, no comment on squam cells Repeat UA reveal moderate leuk esterase, occ bacteria Urine culture growing > 100,000 col of both E. coli and Klebsiella, both pineda- sensitive Repeat urine culture from 10/07 growing > 100,000 col MRSA and E.faecalis Infectious disease consulted due to repeat urine culture growing MRSA > 100,000 col Continue renally dosed Levaquin per ID recommendations, total of 14 days Will repeat UA/culture if there are concerns for active infection (3) Anemia ICD Codes: D64.9 - Anemia, unspecified Status: Acute Plan: Consider acute GI bleed vs other acute blood loss anemia Hemoccult positive GI consulted EGD demonstrating class a esophagitis, erythematous moderate gastritis in the gastric antrum with biopsy performed, duodenal mucosa appeared normal Colonoscopy findings significant for internal and external hemorrhoids Protonix 40mg PO daily Hemoglobin stable (4) Acute on chronic renal insufficiency ICD Codes: N28.9 - Disorder of kidney and ureter, unspecified; N18.9 - Chronic kidney disease, unspecified Status: Acute Plan: Cr 4.14 on admission, baseline may be around 1.70 Possibly acute on chronic due to prerenal due to dehydration versus diabetic nephropathy vs intrinsic renal pathology, but urine specific gravity was 1.01 Avoid nephrotoxins as able Monitor I/Os Continue to trend renal function Nephrology consulted, appreciated recommendations Renal ultrasound with nonvisualized left kidney potentially for technical reasons. 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 Low density area in the left lateral aspect of the spleen Abdomen US 10/08 low-density in the spleen, nonspecific (5) Hypokalemia ICD Codes: E87.6 - Hypokalemia Status: Resolved Plan: K+ nml today Mg level also normalized s/p repletion (6) Dementia ICD Codes: F03.90 - Unspecified dementia without behavioral disturbance Status: Chronic Plan: Per discussion with Dr. Ragland, altered mental status from baseline may have been due to urosepsis Nieto act has been lifted Psychiatry consulted Patient started on Seroquel 25 mg po bid Continue Haldol 2mg IM q8h prn agitation (7) Diabetes mellitus ICD Codes: E11.9 - Type 2 diabetes mellitus without complications Status: Chronic Plan: -Low dose ISS -Levemir 10 units BID -BSBG ranging 132-233 (8) Nutrition, metabolism, and development symptoms ICD Codes: R63.8 - Other symptoms and signs concerning food and fluid intake Status: Acute Plan: Fluids: PO Electrolytes: plan as above, continue to monitor Nutrition: Regular DVT ppx: Heparin 5,000 units sq q12h (Sukhjinder Hamilton MD R2) Problem Qualifiers (1) Dementia: Sukhjinder Hamilton MD R2 Oct 12, 2017 13:53 Shima Manzo MD Oct 13, 2017 08:10
[2017-10-12] MEDS: HALOPERIDOL LACTATE 5 MG/ML AMP IM PRN ×2 (15:42→23:40)
--- NOTE | 2017-10-12 17:41 | HHI.GIFU ---
Subjective Remarks Pt resting in bed, in no apparent distress. He is confused and unable to answer questions appropriately, no family at bedside. (Tanya Alex) Objective Vitals I&O Vital Signs Date Time Temp Pulse Resp B/P (MAP) Pulse Ox O2 Delivery O2 Flow Rate FiO2 10/12/17 12:00 97.6 64 20 159/74 (102) 98 10/12/17 08:00 97.5 116 22 172/72 (105) 100 10/12/17 07:15 78 10/12/17 07:15 Room Air 10/12/17 04:00 98.6 73 19 150/66 (94) 95 10/12/17 04:00 Room Air 10/12/17 04:00 56 10/12/17 00:00 Room Air 10/12/17 00:00 98.3 66 19 153/70 (97) 98 10/12/17 00:00 78 10/11/17 20:00 85 10/11/17 20:00 98.6 89 20 140/65 (90) 97 10/11/17 20:00 Room Air I/O 10/11/17 10/11/17 10/11/17 10/12/17 10/12/17 10/12/17 07:00 15:00 23:00 07:00 15:00 23:00 Intake Total 580 ml 1180 ml 1200 ml Output Total 400 ml 400 ml 1900 ml Balance 180 ml 780 ml -700 ml Intake Oral 180 ml 480 ml 200 ml IV Total 400 ml 700 ml 1000 ml Output Urine Total 400 ml 400 ml 1900 ml # Voids 1 # Bowel Movements 1 Laboratory Laboratory Tests Test 10/12/17 08:10 White Blood Count 7.4 Red Blood Count 2.78 Hemoglobin 8.1 Hematocrit 24.2 Mean Corpuscular Volume 86.9 Mean Corpuscular Hemoglobin 29.2 Mean Corpuscular Hemoglobin Concent 33.6 Red Cell Distribution Width 15.7 Platelet Count 226 Mean Platelet Volume 7.0 Blood Urea Nitrogen 38 Creatinine 3.56 Random Glucose 80 Total Protein 7.0 Calcium Level 7.4 Magnesium Level 1.6 Sodium Level 146 Potassium Level 3.7 Chloride Level 114 Carbon Dioxide Level 22.6 Anion Gap 9 Estimat Glomerular Filtration Rate 17 Protein Corrected Calcium 7.5 Date/Time Source Procedure Growth Status 10/08/17 11:00 Blood Peripheral Aerobic Blood Culture - Preliminary NO GROWTH IN 4 DAYS Resulted 10/08/17 11:00 Blood Peripheral Anaerobic Blood Culture - Preliminary NO GROWTH IN 4 DAYS Resulted 10/07/17 12:00 Stool Stool Stool Occult Blood (BERNARD) - Final HEMOCCULT POSITIVE Complete 10/07/17 12:00 Urine Other Urine Culture - Final S. Aureus Mrsa Enterococcus Faecalis Complete Imaging Last Impressions Abdomen Ultrasound 10/08/17 0000 Signed Impressions: Service Date/Time: Sunday, October 08, 2017 08:07 - CONCLUSION: Very limited study. Only the splenic artery and hepatic arteries are visualized. SMA not visualized. Andrea Roman MD Chest X-Ray 10/07/17 0000 Signed Impressions: Service Date/Time: Saturday, October 07, 2017 11:53 - CONCLUSION: No acute disease. Chuy Penny MD FACR Abdomen/Pelvis CT 10/06/17 0000 Signed Impressions: Service Date/Time: September 14:54 - CONCLUSION: 1. Status post cystectomy. 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 2. Absence of the left kidney. 3. Mild fullness of the right renal collecting system. 4. 5 cm low density area seen in the left lateral aspect of the spleen. This is nonspecific. This could represent a process such as an infarct. Neoplastic disease cannot be ruled out. Yasir Wong MD Renal Ultrasound 10/05/17 0000 Signed Impressions: Service Date/Time: Thursday, October 05, 2017 11:03 - CONCLUSION: Nonvisualized left kidney potentially for technical reasons. No hydronephrosis on the right Yasir Garza MD Physical Exam HEENT; Normocephalic; atraumatic. CHEST: Diminished CARDIAC: RRR ABDOMEN: Soft, nontender, bowel sounds active x 4. Colostomy bag with moderate amount of light colored, loose stool. EXTREMITIES: No clubbing, cyanosis, or edema. SKIN: Normal; no rash; no jaundice. 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 Colonoscopy from stoma to the cecum (10/10) --> Normal exam. Flex sigmoidoscopy - Poor prep. EGD --> Class A esophagitis. Pathology -->. Mild active chronic antral gastritis. Squamocolumnar mucosa with moderately active chronic inflammation and intestinal metaplasia, negative for glandular dysplasia. Repeat EGD recommended in 3 years. Repeat colon in 5 years. H/H stable at this time. Continue to monitor H/H If continues to drop then would recommend capsule endoscopy outpatient or if significant then bleeding scan inpatient. H/H stable since Oct 08- currently 8.1/24.2. Has not received blood transfusion during hospitalization. PPI. - Sepsis UTI, acute on chronic renal insufficiency, hx bladder ca, hypokalemia per attending PLAN - Monitor labs- H/H stable since Oct 08 - Transfuse as need - Notify GI of any active bleeding- may consider bleeding scan - Capsule endoscopy outpatient if H/H continues to drop - Repeat EGD in 3 years - Repeat colonoscopy in 5 years - No further recommendations at this time This pt has been seen and examined by Dr. Crockett and myself and this note is written on his behalf. (Tanya Alex) Physician Comments Seen and examined with KAMALA, no active bleeding. GI will sign off, gi fu upon discharge. Thank you (Guerita Crockett MD) Tanya Alex Oct 12, 2017 17:41 Guerita Crockett MD Oct 12, 2017 18:01
[2017-10-12] MEDS: LEVOFLOXACIN 250 MG TAB PO SCH (17:47)
[2017-10-12] MEDS ORDERED: QUEtiapine FUMARATE 25 MG TAB PO ONE (18:00)
[2017-10-13] VITALS (8 sets, daily range): BP systolic 136–167; BP diastolic 67–76; PULSE 63–108; RESP 20–22; TEMP 97.3–98.3; O2SAT 99–100
[2017-10-13 07:21] LABS: HEMATOCRIT 23.8 % (39.0-51.0); MEAN CELL VOLUME 86.7 FL (80.0-100.0); MEAN CORPUSCULAR HEMOGLOBIN 29.7 PG (27.0-34.0); MEAN CORPUSCULAR HGB CONC 34.3 % (32.0-36.0); PLATELET COUNT 227 TH/MM3 (150-450); RED BLOOD COUNT 2.74 MIL/MM3 (4.50-5.90); RED CELL DISTRIBUTION WIDTH 15.7 % (11.6-17.2); REVIEW FLAG FINAL
[2017-10-13 07:24] LABS: BICARBONATE 22.9 MEQ/L (21.0-32.0); POTASSIUM 3.9 MEQ/L (3.5-5.1)
[2017-10-13] MEDS: INSULIN ASPART SUPPLEMENTAL SCALE SQ SCH ×4 (08:00→22:34)
[2017-10-13] MEDS: ASPIRIN 325 MG TAB PO SCH (08:48)
[2017-10-13] MEDS: SODIUM CHLORIDE 0.9% FLUSH 10 ML FLUSH IV FLUSH SCH ×2 (08:48→22:35)
[2017-10-13] MEDS: DIGOXIN 0.125 MG TAB PO SCH (08:49)
[2017-10-13] MEDS: QUEtiapine FUMARATE 25 MG TAB PO SCH ×2 (08:49→22:33)
[2017-10-13] MEDS: METOPROLOL TARTRATE 25 MG TAB PO SCH ×2 (08:49→22:34)
[2017-10-13] MEDS: PANTOPRAZOLE SOD 40 MG DELAYED RELEASE TAB PO SCH (08:49)
[2017-10-13] MEDS: INSULIN DETEMIR 100 UNITS/ML VIAL SQ SCH ×2 (08:50→22:34)
[2017-10-13] MEDS: HEPARIN SODIUM - SQ 10,000 UNITS/ML VIAL SQ SCH ×2 (08:50→22:34)
[2017-10-13] MEDS ORDERED: HALOPERIDOL 2 MG TAB PO PRN (10:15)
--- NOTE | 2017-10-13 11:24 | HHI.FPPN ---
Subjective Remarks No acute events overnight. Afebrile, BPs ranging 120s-170s/60s-80s past 24 hours. Patient is pleasant this morning. Remains disoriented due to baseline dementia. Does not seem to like his breakfast. 1750 cc UOP noted. (Sukhjinder Hamilton MD R2) Objective Vitals Vital Signs Date Time Temp Pulse Resp B/P (MAP) Pulse Ox O2 Delivery O2 Flow Rate FiO2 10/13/17 08:45 Room Air 10/13/17 08:00 97.8 102 20 147/67 (93) 100 10/13/17 08:00 96 10/13/17 04:00 97.6 87 22 160/74 (102) 100 10/13/17 04:00 63 10/13/17 01:24 69 10/13/17 00:00 Room Air 10/13/17 00:00 98.3 86 20 156/70 (98) 99 10/12/17 21:19 84 10/12/17 21:16 Room Air 10/12/17 20:00 97.6 94 20 128/85 (99) 100 10/12/17 16:00 97.7 70 20 144/64 (90) 100 10/12/17 12:00 97.6 64 20 159/74 (102) 98 I/O 10/12/17 10/12/17 10/12/17 10/13/17 10/13/17 10/13/17 07:00 15:00 23:00 07:00 15:00 23:00 Intake Total 1200 ml 1280 ml 480 ml Output Total 1900 ml 1000 ml 1000 ml Balance -700 ml 280 ml -520 ml Intake Oral 200 ml 480 ml 480 ml IV Total 1000 ml 800 ml Output Urine Total 1900 ml 750 ml 1000 ml Stool Total 250 ml (Sukhjinder Hamilton MD R2) Result Diagram: 10/13/17 0616 10/13/17 0616 Objective Remarks GENERAL: NAD, awake, not agitated NEURO: Alert. Oriented to self, remains disoriented to place and time. Speech is clear. law tutor grossly intact. Moving all extremities. SKIN: Warm and dry. No rashes or erythema. HEAD: Normocephalic. Atraumatic. EYES: EOMI. No scleral icterus. No injection or drainage. ENT: No nasal drainage. Moist mucous membranes. NECK: Supple, trachea midline. No JVD. CARDIOVASCULAR: Regular rate and rhythm without murmurs, rubs, or gallops. Peripheral pulses 2+. RESPIRATORY: Breath sounds clear to auscultation and equal bilaterally, without wheezes, rales, or rhonchi. No accessory muscle use. GASTROINTESTINAL: Abdomen soft, nontender, nondistended. No rebound tenderness. No guarding. Ostomy and urine output bag in place. MUSCULOSKELETAL: No lower extremity edema. (Sukhjinder Hamilton MD R2) A/P Assessment and Plan 67-year-old man with h/o dementia admitted under Nieto act, which has since been lifted, after reportedly displaying aggressive behavior towards his family. He has been managed for sepsis due to a UTI, anemia, chronic renal insufficiency. Discharge Planning Anticipate discharge to SNF tomorrow 10/14 (Sukhjinder Hamilton MD R2) Attending Attestation Patient seen and examined. Case reviewed and discussed with the resident team. Agree with plan of care as discussed with me and documented in the resident note. (Shima Manzo MD) Problem List: (1) Sepsis ICD Codes: A41.9 - Sepsis, unspecified organism Status: Resolved Plan: Patient met criteria for sepsis on admission with elevated pulse and leukocytosis Source due to a urinary tract infection Lactate 0.8 Continue Levaquin for total of 14 days, stop date of 10/17 Further plan as below (2) UTI (urinary tract infection) ICD Codes: N39.0 - Urinary tract infection, site not specified Status: Resolved Plan: Large leuk esterase, many bacteria, 138 WBC, no comment on squam cells Repeat UA reveal moderate leuk esterase, occ bacteria Urine culture growing > 100,000 col of both E. coli and Klebsiella, both pineda- sensitive Repeat urine culture from 10/07 growing > 100,000 col MRSA and E.faecalis Infectious disease consulted due to repeat urine culture growing MRSA > 100,000 col Continue renally dosed Levaquin per ID recommendations, total of 14 days Will repeat UA/culture if there are concerns for active infection (3) Anemia ICD Codes: D64.9 - Anemia, unspecified Status: Chronic Plan: Consider acute GI bleed vs other acute blood loss anemia Hemoccult positive GI consulted EGD demonstrating class a esophagitis, erythematous moderate gastritis in the gastric antrum with biopsy performed, duodenal mucosa appeared normal Colonoscopy findings significant for internal and external hemorrhoids Continue Protonix 40mg PO daily Hemoglobin stable (4) Acute on chronic renal insufficiency ICD Codes: N28.9 - Disorder of kidney and ureter, unspecified; N18.9 - Chronic kidney disease, unspecified Status: Chronic Plan: Cr 4.14 on admission, improving, baseline seems to be ~3.5 Possibly acute on chronic due to prerenal due to dehydration versus diabetic nephropathy vs intrinsic renal pathology, but urine specific gravity was 1.01 Avoid nephrotoxins as able Monitor I/Os Nephrology consulted, appreciated recommendations Renal ultrasound with nonvisualized left kidney potentially for technical reasons. 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 Low density area in the left lateral aspect of the spleen Abdomen US 10/08 low-density in the spleen, nonspecific (5) Dementia ICD Codes: F03.90 - Unspecified dementia without behavioral disturbance Status: Chronic Plan: Per discussion with Dr. Ragland, altered mental status from baseline may have been due to urosepsis Nieto act has been lifted Psychiatry consulted Patient started on Seroquel 25 mg po bid Discontinue IM Haldol Start Haldol 2 mg po q4h prn acute agitation (6) Diabetes mellitus ICD Codes: E11.9 - Type 2 diabetes mellitus without complications Status: Chronic Plan: -Low dose ISS -Levemir 10 units BID -BSBG ranging 76-177 (7) Nutrition, metabolism, and development symptoms ICD Codes: R63.8 - Other symptoms and signs concerning food and fluid intake Status: Acute Plan: Fluids: PO Electrolytes: WNL Nutrition: Regular DVT ppx: Heparin 5,000 units sq q12h (Sukhjinder Hamilton MD R2) Problem Qualifiers (1) Dementia: Sukhjinder Hamilton MD R2 Oct 13, 2017 11:24 Shima Manzo MD Oct 13, 2017 14:35
--- NOTE | 2017-10-13 13:03 | HHI.NPPN ---
Subjective History of Present Illness Patient is 67-year-old male with history of urostomy and a cancer status post cystectomy not in acute renal failure Additional Remarks Patient is confused still per nursing staff Objective Data Data Vital Signs Date Time Temp Pulse Resp B/P (MAP) Pulse Ox O2 Delivery O2 Flow Rate FiO2 10/13/17 12:00 97.9 85 22 167/76 (106) 99 10/13/17 08:45 Room Air 10/13/17 08:00 97.8 102 20 147/67 (93) 100 10/13/17 08:00 96 10/13/17 04:00 97.6 87 22 160/74 (102) 100 10/13/17 04:00 63 10/13/17 01:24 69 10/13/17 00:00 Room Air 10/13/17 00:00 98.3 86 20 156/70 (98) 99 10/12/17 21:19 84 10/12/17 21:16 Room Air 10/12/17 20:00 97.6 94 20 128/85 (99) 100 10/12/17 16:00 97.7 70 20 144/64 (90) 100 -: 10/13/17 0616 10/13/17 0616 Physical Exam General Appearance: Well Developed, No Acute Distress, Comfortable Neck Neck Exam: Neck Supple Pulmonary Resp Exam: Decreased Bases Cardiology CV Exam: Regular Gastrointestinal/Abdomen GI Exam: Soft (urostomy and colostomy in place) Extremeties Extremities Exam: No Edema Neurologic Neuro Exam: Alert, Awake, Oriented Assessment/Plan Problem List: (1) Acute on chronic renal insufficiency ICD Codes: N28.9 - Disorder of kidney and ureter, unspecified; N18.9 - Chronic kidney disease, unspecified Status: Acute Plan: Patient doing better resolving ARF with hydration Creatinine is slowly declining 3.54 Remains nonoliguric I encouraged him to eat and drink properly Consulting the dehydration was addressed UTI MRSA/Enterococcus (2) Dementia ICD Codes: F03.90 - Unspecified dementia without behavioral disturbance Status: Chronic (3) Hyperchloremic metabolic acidosis ICD Codes: E87.2 - Acidosis Plan: Patient has urostomy and colostomy is losing bicarbonate Problem Qualifiers (1) Dementia: Brooks Bob MD Oct 13, 2017 13:03
[2017-10-13] MEDS: amLODIPine BESYLATE 5 MG TAB PO SCH (14:38)
--- NOTE | 2017-10-13 15:28 | HHI.PR ---
Addendum to Inpatient Note Additional Information pt was seen today around 12 pm - full note to follow Virgen Sparrow MD Oct 13, 2017 15:27
[2017-10-13] MEDS ORDERED: QUEtiapine FUMARATE 25 MG TAB PO ONE (17:00)
--- NOTE | 2017-10-13 20:32 | HHI.IDPN ---
Subjective Subjective Remarks pt is very confused afebrile On RA Antibiotics levaquine Allergies: Coded Allergies: No Known Allergies (Verified Adverse Reaction, Unknown, 10/04/17) Objective . Vital Signs Date Time Temp Pulse Resp B/P (MAP) Pulse Ox O2 Delivery O2 Flow Rate FiO2 10/13/17 16:00 97.3 84 22 154/68 (96) 99 10/13/17 16:00 Room Air 10/13/17 16:00 86 10/13/17 12:00 97.9 85 22 167/76 (106) 99 10/13/17 12:00 79 10/13/17 12:00 Room Air 10/13/17 08:45 Room Air 10/13/17 08:00 97.8 102 20 147/67 (93) 100 10/13/17 08:00 96 10/13/17 04:00 97.6 87 22 160/74 (102) 100 10/13/17 04:00 63 10/13/17 01:24 69 10/13/17 00:00 Room Air 10/13/17 00:00 98.3 86 20 156/70 (98) 99 10/12/17 21:19 84 10/12/17 21:16 Room Air 10/13/17 10/13/17 10/14/17 15:00 23:00 07:00 Intake Total 720 ml Output Total 900 ml Balance -180 ml Intake Oral 720 ml Output Urine Total 650 ml Stool Total 250 ml . Laboratory Tests Test 10/12/17 08:10 10/13/17 06:16 White Blood Count 7.4 TH/MM3 10.0 TH/MM3 Red Blood Count 2.78 MIL/MM3 2.74 MIL/MM3 Hemoglobin 8.1 GM/DL 8.2 GM/DL Hematocrit 24.2 % 23.8 % Mean Corpuscular Volume 86.9 FL 86.7 FL Mean Corpuscular Hemoglobin 29.2 PG 29.7 PG Mean Corpuscular Hemoglobin Concent 33.6 % 34.3 % Red Cell Distribution Width 15.7 % 15.7 % Platelet Count 226 TH/MM3 227 TH/MM3 Mean Platelet Volume 7.0 FL 6.9 FL Laboratory Tests Test 10/12/17 08:10 10/13/17 06:16 Blood Urea Nitrogen 38 MG/DL 35 MG/DL Creatinine 3.56 MG/DL 3.54 MG/DL Random Glucose 80 MG/DL 61 MG/DL Total Protein 7.0 GM/DL Calcium Level 7.4 MG/DL 8.0 MG/DL Magnesium Level 1.6 MG/DL Sodium Level 146 MEQ/L 145 MEQ/L Potassium Level 3.7 MEQ/L 3.9 MEQ/L Chloride Level 114 MEQ/L 113 MEQ/L Carbon Dioxide Level 22.6 MEQ/L 22.9 MEQ/L Anion Gap 9 MEQ/L 9 MEQ/L Estimat Glomerular Filtration Rate 17 ML/MIN 17 ML/MIN Protein Corrected Calcium 7.5 MG/DL Imaging Last Impressions Abdomen Ultrasound 10/08/17 0000 Signed Impressions: Service Date/Time: Sunday, October 08, 2017 08:07 - CONCLUSION: Very limited study. Only the splenic artery and hepatic arteries are visualized. SMA not visualized. Andrea Roman MD Chest X-Ray 10/07/17 0000 Signed Impressions: Service Date/Time: Saturday, October 07, 2017 11:53 - CONCLUSION: No acute disease. Chuy Penny MD FACR Abdomen/Pelvis CT 10/06/17 0000 Signed Impressions: Service Date/Time: September 14:54 - CONCLUSION: 1. Status post cystectomy. 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 2. Absence of the left kidney. 3. Mild fullness of the right renal collecting system. 4. 5 cm low density area seen in the left lateral aspect of the spleen. This is nonspecific. This could represent a process such as an infarct. Neoplastic disease cannot be ruled out. Yasir Wong MD Renal Ultrasound 10/05/17 0000 Signed Impressions: Service Date/Time: Thursday, October 05, 2017 11:03 - CONCLUSION: Nonvisualized left kidney potentially for technical reasons. No hydronephrosis on the right Yasir Garza MD Physical Exam CONSTITUTIONAL/GENERAL: This is an adequately nourished patient, in no apparent distress. TUBES/LINES/DRAINS: SKIN: No jaundice, rashes, or lesions. Skin temperature appropriate. Not diaphoretic. CARDIOVASCULAR: Regular rate and rhythm without murmurs, gallops, or rubs. No JVD. Peripheral pulses symmetric. RESPIRATORY/CHEST: Symmetric, unlabored respirations. Clear to auscultation. Breath sounds equal bilaterally. No wheezes, rales, or rhonchi. GASTROINTESTINAL: Abdomen soft, non-tender, nondistended. No hepato-splenomegaly , or palpable masses. No guarding. Bowel sounds present. Colostomy in place with liquid light brown stool with visible blood present in LLQ Ileostomy in place with clear urine in collection bag MUSCULOSKELETAL: Extremities without clubbing, cyanosis, or edema. No joint tenderness or effusion noted. No calf tenderness. No mottling or clubbing. NEUROLOGICAL: Awake and alert. Motor and sensory grossly within normal limits. Follows commands. Confused, speech incoherent . Moves all extremities. PSYCHIATRIC: slightly agitated Assessment & Plan Remarks Acute renal failure UTI, Kleb pnemo E.clli Complicated UTI in a pt with ileostomy MRSA in urine ? clin significance - not a usual urinary or GI pathogen; presence can be usually explained either 2/2 MRSA bacteremia or contamination blood clx remain negative @ 5 days Confusion - likely t 2/2 underlying dementia cont levaquine x 2 weeks repeat UA/urine clx only if concerns for ongoing infx (fever, leukocytosis, mental stus change, hemodynamic instability will sign off, please reconsult if needed Virgen Sparrow MD Oct 13, 2017 20:32
[2017-10-14] VITALS (10 sets, daily range): BP systolic 100–151; BP diastolic 58–76; PULSE 59–101; RESP 18–22; TEMP 97.4–98.5; O2SAT 96–100
[2017-10-14] MEDS: DIGOXIN 0.125 MG TAB PO SCH (07:56)
[2017-10-14] MEDS: ASPIRIN 325 MG TAB PO SCH (07:56)
[2017-10-14] MEDS: PANTOPRAZOLE SOD 40 MG DELAYED RELEASE TAB PO SCH (07:56)
[2017-10-14] MEDS: QUEtiapine FUMARATE 25 MG TAB PO SCH ×2 (07:56→21:00)
[2017-10-14] MEDS: INSULIN DETEMIR 100 UNITS/ML VIAL SQ SCH ×2 (07:56)
[2017-10-14] MEDS: HEPARIN SODIUM - SQ 10,000 UNITS/ML VIAL SQ SCH ×2 (07:56→21:00)
[2017-10-14] MEDS: amLODIPine BESYLATE 5 MG TAB PO SCH (07:57)
[2017-10-14] MEDS: INSULIN ASPART SUPPLEMENTAL SCALE SQ SCH ×3 (07:57→17:00)
[2017-10-14] MEDS: METOPROLOL TARTRATE 25 MG TAB PO SCH ×2 (07:57→21:00)
[2017-10-14] MEDS: SODIUM CHLORIDE 0.9% FLUSH 10 ML FLUSH IV FLUSH SCH ×2 (07:57→21:00)
--- NOTE | 2017-10-14 09:04 | HHI.FPPN ---
Subjective Remarks No acute events overnight. Afebrile, vitals stable. Patient seen and examined this morning. Patient is pleasant. NAD. Able to answer some questions appropriately. 1500 cc of UOP. (Sukhjinder Hamilton MD R2) Objective Vitals Vital Signs Date Time Temp Pulse Resp B/P (MAP) Pulse Ox O2 Delivery O2 Flow Rate FiO2 10/14/17 08:00 Room Air 10/14/17 04:30 Room Air 10/14/17 04:30 98.3 88 19 151/76 (101) 96 10/14/17 04:24 93 10/14/17 00:08 73 10/14/17 00:00 Room Air 10/14/17 00:00 98.1 76 22 151/72 (98) 100 10/13/17 20:03 108 10/13/17 20:00 98.2 98 20 136/70 (92) 100 10/13/17 20:00 Room Air 10/13/17 16:00 97.3 84 22 154/68 (96) 99 10/13/17 16:00 Room Air 10/13/17 16:00 86 10/13/17 12:00 97.9 85 22 167/76 (106) 99 10/13/17 12:00 79 10/13/17 12:00 Room Air I/O 10/13/17 10/13/17 10/13/17 10/14/17 10/14/17 10/14/17 07:00 15:00 23:00 07:00 15:00 23:00 Intake Total 480 ml 720 ml 1430 ml Output Total 1000 ml 900 ml 1050 ml Balance -520 ml -180 ml 380 ml Intake Oral 480 ml 720 ml 1430 ml Output Urine Total 1000 ml 650 ml 850 ml Stool Total 250 ml 200 ml (Sukhjinder Hamilton MD R2) Result Diagram: 10/13/17 0616 10/13/17 0616 Objective Remarks GENERAL: NAD, awake, not agitated NEURO: Alert. Oriented to self, remains disoriented to place and time. Speech is clear. central sterile technician grossly intact. Moving all extremities. SKIN: Warm and dry. No rashes or erythema. HEAD: Normocephalic. Atraumatic. EYES: EOMI. No scleral icterus. No injection or drainage. ENT: No nasal drainage. Moist mucous membranes. NECK: Supple, trachea midline. No JVD. CARDIOVASCULAR: Regular rate and rhythm without murmurs, rubs, or gallops. Peripheral pulses 2+. RESPIRATORY: Breath sounds clear to auscultation and equal bilaterally, without wheezes, rales, or rhonchi. No accessory muscle use. GASTROINTESTINAL: Abdomen soft, nontender, nondistended. No rebound tenderness. No guarding. Ostomy and urine output bag in place. MUSCULOSKELETAL: No lower extremity edema. (Sukhjinder Hamilton MD R2) A/P Assessment and Plan 67-year-old man with h/o dementia admitted under Nieto act, which has since been lifted, after reportedly displaying aggressive behavior towards his family. He has been managed for sepsis due to a UTI, anemia, chronic renal insufficiency. Discharge Planning Anticipate discharge to SNF tomorrow 10/14 (Sukhjinder Hamilton MD R2) Attending Attestation Patient seen and examined. Case reviewed and discussed with the resident team. Agree with plan of care as discussed with me and documented in the resident note. (Shima Manzo MD) Problem List: (1) Sepsis ICD Codes: A41.9 - Sepsis, unspecified organism Status: Resolved Plan: Patient met criteria for sepsis on admission with elevated pulse and leukocytosis Source due to a urinary tract infection Lactate 0.8 Continue Levaquin for total of 14 days, stop date of 10/17 Further plan as below (2) UTI (urinary tract infection) ICD Codes: N39.0 - Urinary tract infection, site not specified Status: Resolved Plan: Large leuk esterase, many bacteria, 138 WBC, no comment on squam cells Repeat UA reveal moderate leuk esterase, occ bacteria Urine culture growing > 100,000 col of both E. coli and Klebsiella, both pineda- sensitive Repeat urine culture from 10/07 growing > 100,000 col MRSA and E.faecalis Infectious disease consulted due to repeat urine culture growing MRSA > 100,000 col Continue renally dosed Levaquin per ID recommendations, total of 14 days Will repeat UA/culture if there are concerns for active infection (3) Anemia ICD Codes: D64.9 - Anemia, unspecified Status: Chronic Plan: Consider acute GI bleed vs other acute blood loss anemia Hemoccult positive GI consulted EGD demonstrating class a esophagitis, erythematous moderate gastritis in the gastric antrum with biopsy performed, duodenal mucosa appeared normal Colonoscopy findings significant for internal and external hemorrhoids Continue Protonix 40mg PO daily Hemoglobin stable (4) Acute on chronic renal insufficiency ICD Codes: N28.9 - Disorder of kidney and ureter, unspecified; N18.9 - Chronic kidney disease, unspecified Status: Chronic Plan: Cr 4.14 on admission, improving, baseline seems to be ~3.5 Possibly acute on chronic due to prerenal due to dehydration versus diabetic nephropathy vs intrinsic renal pathology, but urine specific gravity was 1.01 Avoid nephrotoxins as able Monitor I/Os Nephrology consulted, appreciated recommendations Renal ultrasound with nonvisualized left kidney potentially for technical reasons. 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 Low density area in the left lateral aspect of the spleen Abdomen US 10/08 low-density in the spleen, nonspecific (5) Dementia ICD Codes: F03.90 - Unspecified dementia without behavioral disturbance Status: Chronic Plan: Per discussion with Dr. Ragland, altered mental status from baseline may have been due to urosepsis Nieto act has been lifted Psychiatry consulted Patient started on Seroquel 25 mg po bid Haldol discontinued, last dose 10/13 at 14:30 Ativan 0.5 mg po q8h prn agitation (6) Diabetes mellitus ICD Codes: E11.9 - Type 2 diabetes mellitus without complications Status: Chronic Plan: -Low dose ISS -Levemir 10 units BID (7) Nutrition, metabolism, and development symptoms ICD Codes: R63.8 - Other symptoms and signs concerning food and fluid intake Status: Acute Plan: Fluids: PO Electrolytes: WNL 10/13 Nutrition: Regular DVT ppx: Heparin 5,000 units sq q12h (Sukhjinder Hamilton MD R2) Problem Qualifiers (1) Dementia: Sukhjinder Hamilton MD R2 Oct 14, 2017 09:04 Shima Manzo MD Oct 14, 2017 15:59
[2017-10-14] MEDS: LORazepam 0.5 MG TAB PO PRN (10:53)
--- NOTE | 2017-10-14 12:13 | HHI.NPPN ---
Subjective History of Present Illness Patient is 67-year-old male with history of urostomy and a cancer status post cystectomy not in acute renal failure Additional Remarks Patient is confused still per nursing staff Objective Data Data Vital Signs Date Time Temp Pulse Resp B/P (MAP) Pulse Ox O2 Delivery O2 Flow Rate FiO2 10/14/17 08:00 97.4 91 18 127/63 (84) 99 10/14/17 08:00 Room Air 10/14/17 08:00 85 10/14/17 04:30 Room Air 10/14/17 04:30 98.3 88 19 151/76 (101) 96 10/14/17 04:24 93 10/14/17 00:08 73 10/14/17 00:00 Room Air 10/14/17 00:00 98.1 76 22 151/72 (98) 100 10/13/17 20:03 108 10/13/17 20:00 98.2 98 20 136/70 (92) 100 10/13/17 20:00 Room Air 10/13/17 16:00 97.3 84 22 154/68 (96) 99 10/13/17 16:00 Room Air 10/13/17 16:00 86 -: 10/13/17 0616 10/13/17 0616 Physical Exam General Appearance: Well Developed, No Acute Distress, Comfortable Neck Neck Exam: Neck Supple Pulmonary Resp Exam: Decreased Bases Cardiology CV Exam: Regular Gastrointestinal/Abdomen GI Exam: Soft (urostomy and colostomy in place) Extremeties Extremities Exam: No Edema Neurologic Neuro Exam: Alert, Awake, Oriented Assessment/Plan Problem List: (1) Acute on chronic renal insufficiency ICD Codes: N28.9 - Disorder of kidney and ureter, unspecified; N18.9 - Chronic kidney disease, unspecified Status: Chronic Plan: Patient doing better resolving ARF with hydration Creatinine is slowly declining 3.54 Remains nonoliguric UTI MRSA/Enterococcus dc plans per PCP (2) Dementia ICD Codes: F03.90 - Unspecified dementia without behavioral disturbance Status: Chronic (3) Hyperchloremic metabolic acidosis ICD Codes: E87.2 - Acidosis Plan: Patient has urostomy and colostomy is losing bicarbonate Problem Qualifiers (1) Dementia: Brooks Bob MD Oct 14, 2017 12:13
[2017-10-14] MEDS: LEVOFLOXACIN 250 MG TAB PO SCH (18:11)
--- NOTE | 2017-10-14 22:39 | HHI.FPPN ---
Addendum to progress note ADDENDUM Reason for addendum: Additonal documentation Additional information S: Resident team paged by nurse around 21:17 stating patient had slipped off the cushion from and the chair and fell to the floor. A fall alert was call. Nurse stated that patient did not have any injury and he did not hit his head. Nurse stated pt is doing well otherwise with stable vital signs. He was able to ambulate with the nurses after the fall without any issues. Post fall protocol was initiated. O: Vitals: stable per Everardo nurse PE: GEN: elderly male sleeping in bed upon arrival in [facility] Cardio: RRR, No MGR RESP: CTA BL MSK: brief skin exam shows no signs of trauma, no ecchymoses, no bleeding A/P: 67 yo M wit dementia admitted under Nieto act (now lifted) after displaying aggressive behavior towards family. -Non traumatic fall without any LOC -continue to monitor -notify primary doctor with any acute status changes -w day team Devan Quintana MD, R1 Oct 14, 2017 22:39
[2017-10-15] VITALS: BP 166/75; PULSE 69; RESP 18; TEMP 97.3; O2SAT 99
[2017-10-15] MEDS: LORazepam 0.5 MG TAB PO PRN ×3 (01:22→17:18)
[2017-10-15] MEDS ORDERED: LORazepam 2 MG/ML VIAL IV PUSH ONE (03:00)
[2017-10-15 04:00] VITALS: BP 120/63; PULSE 60; PULSE 63; RESP 16; TEMP 97.2; O2SAT 98
[2017-10-15 08:00] VITALS: BP 138/75; PULSE 64; PULSE 85; RESP 16; TEMP 97.4; O2SAT 99
[2017-10-15] MEDS: INSULIN ASPART SUPPLEMENTAL SCALE SQ SCH ×5 (08:00→20:45)
[2017-10-15] MEDS: ASPIRIN 325 MG TAB PO SCH (08:50)
[2017-10-15] MEDS: amLODIPine BESYLATE 5 MG TAB PO SCH (08:50)
[2017-10-15] MEDS: METOPROLOL TARTRATE 25 MG TAB PO SCH ×2 (08:50→20:44)
[2017-10-15] MEDS: QUEtiapine FUMARATE 25 MG TAB PO SCH ×2 (08:51→20:44)
[2017-10-15] MEDS: DIGOXIN 0.125 MG TAB PO SCH (08:51)
[2017-10-15] MEDS: PANTOPRAZOLE SOD 40 MG DELAYED RELEASE TAB PO SCH (08:51)
[2017-10-15] MEDS: HEPARIN SODIUM - SQ 10,000 UNITS/ML VIAL SQ SCH ×2 (08:52→20:44)
[2017-10-15] MEDS: INSULIN DETEMIR 100 UNITS/ML VIAL SQ SCH ×3 (08:53→20:44)
[2017-10-15] MEDS: SODIUM CHLORIDE 0.9% FLUSH 10 ML FLUSH IV FLUSH SCH ×2 (08:54→20:42)
--- NOTE | 2017-10-15 09:18 | HHI.FPPN ---
Subjective Remarks Overnight ~21:17 fall alert was called for patient as per report patient had slipped off of the cushion from this chair to the floor. No injuries were noted as well as no head trauma. Residents overnight evaluated the patient. Patient was reportedly able to ambulate at baseline with the nurses without any issues. Afebrile, vitals stable. Patient seen and examined this morning. Patient NAD, sitting up in bed, pleasant this morning. Able to answer some questions appropriately, seems to be at baseline given his dementia. Denies pain anywhere. Denies fevers, CP, difficulty breathing. (Sukhjinder Hamilton MD R2) Objective Vitals Vital Signs Date Time Temp Pulse Resp B/P (MAP) Pulse Ox O2 Delivery O2 Flow Rate FiO2 10/15/17 04:00 63 10/15/17 04:00 97.2 60 16 120/63 (82) 98 10/15/17 00:00 Room Air 10/15/17 00:00 97.3 69 18 166/75 (105) 99 10/14/17 21:07 97.6 101 19 121/76 (91) 98 10/14/17 21:07 Room Air 10/14/17 20:00 98.1 95 18 137/65 (89) 100 10/14/17 20:00 85 10/14/17 16:00 98.2 76 18 113/60 (77) 100 10/14/17 16:00 Room Air 10/14/17 12:00 98.5 76 18 100/58 (72) 99 10/14/17 12:00 Room Air I/O 10/14/17 10/14/17 10/14/17 10/15/17 10/15/17 10/15/17 07:00 15:00 23:00 07:00 15:00 23:00 Intake Total 1430 ml Output Total 1050 ml 400 ml Balance 380 ml -400 ml Intake Oral 1430 ml Output Urine Total 850 ml 400 ml Stool Total 200 ml (Sukhjinder Hamilton MD R2) Result Diagram: 10/13/1716 10/13/17 0616 Objective Remarks GENERAL: NAD, awake, pleasant, not agitated NEURO: Alert. Oriented to self, remains disoriented to place and time. Speech is clear. training technician grossly intact. Moving all extremities. SKIN: Warm and dry. No rashes or erythema. No trauma evident following fall. HEAD: Normocephalic. Atraumatic. EYES: EOMI. No scleral icterus. No injection or drainage. ENT: No nasal drainage. Moist mucous membranes. NECK: Supple, trachea midline. No JVD. CARDIOVASCULAR: Regular rate and rhythm without murmurs, rubs, or gallops. Peripheral pulses 2+. RESPIRATORY: Breath sounds clear to auscultation and equal bilaterally, without wheezes, rales, or rhonchi. No accessory muscle use. GASTROINTESTINAL: Abdomen soft, nontender, nondistended. No rebound tenderness. No guarding. Ostomy and urine output bag in place. MUSCULOSKELETAL: No lower extremity edema. (Sukhjinder Hamilton MD R2) A/P Assessment and Plan 67-year-old man with h/o dementia admitted under Nieto act, which has since been lifted, after reportedly displaying aggressive behavior towards his family. He has been managed for sepsis due to a UTI, anemia, chronic renal insufficiency. Discharge Planning Anticipate discharge to SNF today 10/15 (Sukhjinder Hamilton MD R2) Attending Attestation Patient seen and examined. Case reviewed and discussed with the resident team. Agree with plan of care as discussed with me and documented in the resident note. (Shima Manzo MD) Problem List: (1) Sepsis ICD Codes: A41.9 - Sepsis, unspecified organism Status: Resolved Plan: Patient met criteria for sepsis on admission with elevated pulse and leukocytosis Source due to a urinary tract infection Lactate 0.8 Continue Levaquin for total of 14 days, stop date of 10/17 Further plan as below (2) UTI (urinary tract infection) ICD Codes: N39.0 - Urinary tract infection, site not specified Status: Resolved Plan: Large leuk esterase, many bacteria, 138 WBC, no comment on squam cells Repeat UA reveal moderate leuk esterase, occ bacteria Urine culture growing > 100,000 col of both E. coli and Klebsiella, both pineda- sensitive Repeat urine culture from 10/07 growing > 100,000 col MRSA and E.faecalis Infectious disease consulted due to repeat urine culture growing MRSA > 100,000 col Continue renally dosed Levaquin per ID recommendations, total of 14 days Will repeat UA/culture if there are concerns for active infection (3) Anemia ICD Codes: D64.9 - Anemia, unspecified Status: Chronic Plan: Consider acute GI bleed vs other acute blood loss anemia Hemoccult positive GI consulted EGD demonstrating class a esophagitis, erythematous moderate gastritis in the gastric antrum with biopsy performed, duodenal mucosa appeared normal Colonoscopy findings significant for internal and external hemorrhoids Continue Protonix 40 mg PO daily Hemoglobin stable (4) Acute on chronic renal insufficiency ICD Codes: N28.9 - Disorder of kidney and ureter, unspecified; N18.9 - Chronic kidney disease, unspecified Status: Chronic Plan: Cr 4.14 on admission, improving, baseline seems to be ~3.5 Possibly acute on chronic due to prerenal due to dehydration versus diabetic nephropathy vs intrinsic renal pathology, but urine specific gravity was 1.01 Avoid nephrotoxins as able Monitor I/Os UOP adequate Nephrology consulted, appreciated recommendations Renal ultrasound with nonvisualized left kidney potentially for technical reasons. 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 Low density area in the left lateral aspect of the spleen Abdomen US 10/08 low-density in the spleen, nonspecific (5) Dementia ICD Codes: F03.90 - Unspecified dementia without behavioral disturbance Status: Chronic Plan: Per discussion with Dr. Ragland, altered mental status from baseline may have been due to urosepsis Nieto act has been lifted Psychiatry consulted Patient started on Seroquel 25 mg po bid Haldol discontinued, last dose 10/13 at 14:30 Ativan 0.5 mg po q8h prn agitation (6) Diabetes mellitus ICD Codes: E11.9 - Type 2 diabetes mellitus without complications Status: Chronic Plan: -Low dose ISS -Levemir 10 units BID (7) Nutrition, metabolism, and development symptoms ICD Codes: R63.8 - Other symptoms and signs concerning food and fluid intake Status: Acute Plan: Fluids: PO Electrolytes: WNL 10/13 Nutrition: Regular DVT ppx: Heparin 5,000 units sq q12h (Sukhjinder Hamilton MD R2) Problem Qualifiers (1) Dementia: Sukhjinder Hamilton MD R2 Oct 15, 2017 09:18 Shima Manzo MD Oct 15, 2017 11:32
[2017-10-15 12:00] VITALS: BP 119/78; PULSE 56; RESP 18; TEMP 97.2; O2SAT 97
[2017-10-15 16:00] VITALS: BP 123/57; PULSE 69; PULSE 88; RESP 20; TEMP 97.4; O2SAT 98
[2017-10-15 20:00] VITALS: BP 152/68; PULSE 80; PULSE 85; RESP 20; TEMP 97.6; O2SAT 99
[2017-10-16] VITALS (7 sets, daily range): BP systolic 106–126; BP diastolic 56–74; PULSE 56–92; RESP 18–20; TEMP 97.2–98.6; O2SAT 97–100
[2017-10-16] MEDS ORDERED: LORazepam 1 MG TAB PO ONE (00:30)
[2017-10-16] MEDS: LORazepam 0.5 MG TAB PO PRN ×4 (00:31→23:31)
[2017-10-16] MEDS: INSULIN ASPART SUPPLEMENTAL SCALE SQ SCH ×4 (08:00→20:04)
[2017-10-16] MEDS: SODIUM CHLORIDE 0.9% FLUSH 10 ML FLUSH IV FLUSH SCH ×2 (08:02→20:03)
[2017-10-16] MEDS: amLODIPine BESYLATE 5 MG TAB PO SCH (08:02)
[2017-10-16] MEDS: PANTOPRAZOLE SOD 40 MG DELAYED RELEASE TAB PO SCH (08:02)
[2017-10-16] MEDS: METOPROLOL TARTRATE 25 MG TAB PO SCH ×2 (08:02→20:03)
[2017-10-16] MEDS: ASPIRIN 325 MG TAB PO SCH (08:03)
[2017-10-16] MEDS: QUEtiapine FUMARATE 25 MG TAB PO SCH ×2 (08:03→20:03)
[2017-10-16] MEDS: HEPARIN SODIUM - SQ 10,000 UNITS/ML VIAL SQ SCH ×2 (08:04→20:02)
[2017-10-16] MEDS: DIGOXIN 0.125 MG TAB PO SCH (08:10)
[2017-10-16] MEDS: INSULIN DETEMIR 100 UNITS/ML VIAL SQ SCH ×2 (08:11→20:04)
--- NOTE | 2017-10-16 09:10 | HHI.FPPN ---
Subjective Remarks Patient received Ativan overnight for agitation and trying to get out of bed. Patient appears frustrated this AM. He states that he is " tired of us telling him the same thing everyday and wants to go home." Nurse reports that he calms down with popsicle and ice cream. Afebrile. VSS. Blood sugars past 24 hrs 88-281 , received 6 units total. He denies pain, CP, SOB, abdominal pain, and N/V. Objective Vitals Vital Signs Date Time Temp Pulse Resp B/P (MAP) Pulse Ox O2 Delivery O2 Flow Rate FiO2 10/16/17 08:29 Room Air 10/16/17 04:38 64 10/16/17 04:00 97.2 69 20 124/60 (81) 97 10/16/17 00:00 86 10/16/17 00:00 97.3 79 20 121/74 (90) 99 10/15/17 20:00 Room Air 10/15/17 20:00 80 10/15/17 20:00 97.6 85 20 152/68 (96) 99 10/15/17 16:00 97.4 88 20 123/57 (79) 98 10/15/17 16:00 69 10/15/17 16:00 Room Air 10/15/17 12:13 Room Air 10/15/17 12:00 97.2 56 18 119/78 (92) 97 10/15/17 12:00 56 10/15/17 09:20 Room Air I/O 10/15/17 10/15/17 10/15/17 10/16/17 10/16/17 10/16/17 07:00 15:00 23:00 07:00 15:00 23:00 Intake Total 1300 ml Output Total 400 ml 600 ml Balance -400 ml 700 ml Intake Oral 1300 ml Output Urine Total 400 ml 600 ml # Bowel Movements 1 Result Diagram: 10/13/1761510/13/1716 Objective Remarks GENERAL: agitated this AM, lying in bed NEURO: Alert. Oriented to self, remains disoriented to place and time. Speech is clear. offal baler grossly intact. Moving all extremities. SKIN: Warm and dry. No rashes or erythema. No trauma evident following fall. HEAD: Normocephalic. Atraumatic. EYES: EOMI. No scleral icterus. No injection or drainage. ENT: No nasal drainage. Moist mucous membranes. NECK: Supple, trachea midline. No JVD. CARDIOVASCULAR: Regular rate and rhythm without murmurs, rubs, or gallops. Peripheral pulses 2+. RESPIRATORY: Breath sounds clear to auscultation and equal bilaterally, without wheezes, rales, or rhonchi. No accessory muscle use. GASTROINTESTINAL: Abdomen soft, nontender, nondistended. No rebound tenderness. No guarding. Ostomy and urine output bag in place. MUSCULOSKELETAL: No lower extremity edema. A/P Assessment and Plan 67-year-old man with h/o dementia admitted under Nieto act, which has since been lifted, after reportedly displaying aggressive behavior towards his family. He has been managed for sepsis due to a UTI, anemia, chronic renal insufficiency. Discharge Planning Anticipate discharge to SNF tomorrow 10/17 Problem List: (1) Sepsis ICD Codes: A41.9 - Sepsis, unspecified organism Status: Resolved Plan: Patient met criteria for sepsis on admission with elevated pulse and leukocytosis Source due to a urinary tract infection Lactate 0.8 Continue Levaquin for total of 14 days, stop date of 10/17 Further plan as below (2) UTI (urinary tract infection) ICD Codes: N39.0 - Urinary tract infection, site not specified Status: Resolved Plan: Large leuk esterase, many bacteria, 138 WBC, no comment on squam cells Repeat UA reveal moderate leuk esterase, occ bacteria Urine culture growing > 100,000 col of both E. coli and Klebsiella, both pineda- sensitive Repeat urine culture from 10/07 growing > 100,000 col MRSA and E.faecalis Infectious disease consulted due to repeat urine culture growing MRSA > 100,000 col Continue renally dosed Levaquin per ID recommendations, total of 14 days Will repeat UA/culture if there are concerns for active infection (3) Anemia ICD Codes: D64.9 - Anemia, unspecified Status: Chronic Plan: Consider acute GI bleed vs other acute blood loss anemia Hemoccult positive GI consulted EGD demonstrating class a esophagitis, erythematous moderate gastritis in the gastric antrum with biopsy performed, duodenal mucosa appeared normal Colonoscopy findings significant for internal and external hemorrhoids Continue Protonix 40 mg PO daily Hemoglobin stable (4) Acute on chronic renal insufficiency ICD Codes: N28.9 - Disorder of kidney and ureter, unspecified; N18.9 - Chronic kidney disease, unspecified Status: Chronic Plan: Cr 4.14 on admission, improving, baseline seems to be ~3.5 Possibly acute on chronic due to prerenal due to dehydration versus diabetic nephropathy vs intrinsic renal pathology, but urine specific gravity was 1.01 Avoid nephrotoxins as able Monitor I/Os UOP adequate Nephrology consulted, appreciated recommendations Renal ultrasound with nonvisualized left kidney potentially for technical reasons. 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 Low density area in the left lateral aspect of the spleen Abdomen US 10/08 low-density in the spleen, nonspecific (5) Dementia ICD Codes: F03.90 - Unspecified dementia without behavioral disturbance Status: Chronic Plan: Per discussion with Dr. Ragland, altered mental status from baseline may have been due to urosepsis Nieto act has been lifted Psychiatry consulted Patient started on Seroquel 25mg BID, increased to 50mg PO BID 10/15, continue Haldol discontinued, last dose 10/13 at 14:30 Ativan 0.5 mg po q8h prn agitation (6) Diabetes mellitus ICD Codes: E11.9 - Type 2 diabetes mellitus without complications Status: Chronic Plan: -Low dose ISS -Levemir 10 units BID (7) Nutrition, metabolism, and development symptoms ICD Codes: R63.8 - Other symptoms and signs concerning food and fluid intake Status: Acute Plan: Fluids: PO Electrolytes: WNL 10/13 Nutrition: Regular DVT ppx: Heparin 5,000 units sq q12h Problem Qualifiers (1) Dementia: Bela Cortes MD R1 Oct 16, 2017 09:10
[2017-10-16] MEDS: LEVOFLOXACIN 250 MG TAB PO SCH (17:45)
[2017-10-16] MEDS: ACETAMINOPHEN 325 MG TAB PO PRN (19:26)
[2017-10-16] MEDS ORDERED: LORazepam 0.5 MG TAB PO ONE (19:30)
[2017-10-17] VITALS (7 sets, daily range): BP systolic 109–137; BP diastolic 58–71; PULSE 73–100; RESP 18–22; TEMP 97–97.8; O2SAT 95–100
[2017-10-17] MEDS: INSULIN ASPART SUPPLEMENTAL SCALE SQ SCH ×4 (08:46→20:40)
[2017-10-17] MEDS: PANTOPRAZOLE SOD 40 MG DELAYED RELEASE TAB PO SCH (08:47)
[2017-10-17] MEDS: SODIUM CHLORIDE 0.9% FLUSH 10 ML FLUSH IV FLUSH SCH ×2 (08:47→20:30)
[2017-10-17] MEDS: ASPIRIN 325 MG TAB PO SCH (08:47)
[2017-10-17] MEDS: METOPROLOL TARTRATE 25 MG TAB PO SCH ×2 (08:47→20:30)
[2017-10-17] MEDS: amLODIPine BESYLATE 5 MG TAB PO SCH (08:47)
[2017-10-17] MEDS: QUEtiapine FUMARATE 25 MG TAB PO SCH ×2 (08:48→20:30)
[2017-10-17] MEDS: DIGOXIN 0.125 MG TAB PO SCH (08:48)
[2017-10-17] MEDS: LORazepam 0.5 MG TAB PO PRN (08:58)
[2017-10-17] MEDS: HEPARIN SODIUM - SQ 10,000 UNITS/ML VIAL SQ SCH ×2 (08:58→20:31)
--- NOTE | 2017-10-17 11:12 | HHI.FPPN ---
Subjective Remarks No acute events overnight. Pt remains agitated and frustrated this morning. Trying to walk around the hallways and yelling. States that he "just wants to go home." Afebrile. VSS. (Bela Cortes MD R1) Objective Vitals Vital Signs Date Time Temp Pulse Resp B/P (MAP) Pulse Ox O2 Delivery O2 Flow Rate FiO2 10/17/17 04:00 91 10/17/17 04:00 97.7 100 22 137/66 (89) 100 10/17/17 00:00 73 10/17/17 00:00 97.8 82 20 114/58 (76) 100 10/16/17 20:00 98.6 82 20 122/56 (78) 100 10/16/17 20:00 92 10/16/17 20:00 Room Air 10/16/17 17:00 Room Air 10/16/17 16:14 Room Air 10/16/17 16:00 58 10/16/17 16:00 97.2 67 20 126/64 (84) 100 10/16/17 12:00 Room Air 10/16/17 12:00 97.4 64 18 106/61 (76) 100 10/16/17 12:00 56 I/O 10/16/17 10/16/17 10/16/17 10/17/17 10/17/17 10/17/17 07:00 15:00 23:00 07:00 15:00 23:00 Intake Total 2000 ml 500 ml Output Total 825 ml 750 ml Balance 1175 ml -250 ml Intake Oral 2000 ml 500 ml Output Urine Total 825 ml 700 ml Stool Total 50 ml (Bela Cortes MD R1) Result Diagram: 10/13/17 0616 10/13/17 0616 Objective Remarks GENERAL: agitated and frustrated this AM, trying to walk around and yell NEURO: Alert. Oriented to self, remains disoriented to place and time. Speech is clear. composition molder grossly intact. Moving all extremities. SKIN: Warm and dry. No rashes or erythema. No trauma evident following fall. HEAD: Normocephalic. Atraumatic. EYES: EOMI. No scleral icterus. No injection or drainage. ENT: No nasal drainage. Moist mucous membranes. NECK: Supple, trachea midline. No JVD. CARDIOVASCULAR: Regular rate and rhythm without murmurs, rubs, or gallops. Peripheral pulses 2+. RESPIRATORY: Breath sounds clear to auscultation and equal bilaterally, without wheezes, rales, or rhonchi. No accessory muscle use. GASTROINTESTINAL: Abdomen soft, nontender, nondistended. No rebound tenderness. No guarding. Ostomy and urine output bag in place. MUSCULOSKELETAL: No lower extremity edema. (Bela Cortes MD R1) A/P Assessment and Plan 67-year-old man with h/o dementia admitted under Nieto act, which has since been lifted, after reportedly displaying aggressive behavior towards his family. He has been managed for sepsis due to a UTI, anemia, chronic renal insufficiency. Discharge Planning Anticipate discharge to SNF today10/17, awaiting placement (Bela Cortes MD R1) Attending Attestation Patient seen and examined. Case reviewed and discussed with the resident team. Agree with plan of care as discussed with me and documented in the resident note. (Shima Manzo MD) Problem List: (1) Sepsis ICD Codes: A41.9 - Sepsis, unspecified organism Status: Resolved Plan: Patient met criteria for sepsis on admission with elevated pulse and leukocytosis Source due to a urinary tract infection Lactate 0.8 Completed Levaquin 250mg PO q48h (renally dose) (10/06-10/16) Further plan as below (2) UTI (urinary tract infection) ICD Codes: N39.0 - Urinary tract infection, site not specified Status: Resolved Plan: Large leuk esterase, many bacteria, 138 WBC, no comment on squam cells Repeat UA reveal moderate leuk esterase, occ bacteria Urine culture growing > 100,000 col of both E. coli and Klebsiella, both pineda- sensitive Repeat urine culture from 10/07 growing > 100,000 col MRSA and E.faecalis Infectious disease consulted due to repeat urine culture growing MRSA > 100,000 col Completed Levaquin 250mg PO q48h (renally dose) (10/06-10/16) (3) Anemia ICD Codes: D64.9 - Anemia, unspecified Status: Chronic Plan: Consider acute GI bleed vs other acute blood loss anemia Hemoccult positive GI consulted EGD demonstrating class a esophagitis, erythematous moderate gastritis in the gastric antrum with biopsy performed, duodenal mucosa appeared normal Colonoscopy findings significant for internal and external hemorrhoids Continue Protonix 40 mg PO daily Hemoglobin stable (4) Acute on chronic renal insufficiency ICD Codes: N28.9 - Disorder of kidney and ureter, unspecified; N18.9 - Chronic kidney disease, unspecified Status: Chronic Plan: Cr 4.14 on admission, improving, baseline seems to be ~3.5 Possibly acute on chronic due to prerenal due to dehydration versus diabetic nephropathy vs intrinsic renal pathology, but urine specific gravity was 1.01 Avoid nephrotoxins as able Monitor I/Os UOP adequate Nephrology consulted, appreciated recommendations Renal ultrasound with nonvisualized left kidney potentially for technical reasons. 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 Low density area in the left lateral aspect of the spleen Abdomen US 10/08 low-density in the spleen, nonspecific (5) Dementia ICD Codes: F03.90 - Unspecified dementia without behavioral disturbance Status: Chronic Plan: Per discussion with Dr. Ragland, altered mental status from baseline may have been due to urosepsis Nieto act has been lifted Psychiatry consulted Continue Seroquel 50mg PO BID Ativan 1mg PO q4hr PRN agitation (6) Diabetes mellitus ICD Codes: E11.9 - Type 2 diabetes mellitus without complications Status: Chronic Plan: -Low dose ISS -Levemir 10 units BID (7) Nutrition, metabolism, and development symptoms ICD Codes: R63.8 - Other symptoms and signs concerning food and fluid intake Status: Acute Plan: Fluids: PO Electrolytes: WNL 10/13 Nutrition: Regular DVT ppx: Heparin 5,000 units sq q12h (Bela Cortes MD R1) Problem Qualifiers (1) Dementia: Bela Cortes MD R1 Oct 17, 2017 11:12 Shima Manzo MD Oct 17, 2017 14:56
[2017-10-17] MEDS: INSULIN DETEMIR 100 UNITS/ML VIAL SQ SCH ×2 (11:16→20:39)
[2017-10-18] VITALS (7 sets, daily range): BP systolic 102–136; BP diastolic 50–66; PULSE 72–106; RESP 16–20; TEMP 97–98.1; O2SAT 95–100
[2017-10-18] MEDS: INSULIN ASPART SUPPLEMENTAL SCALE SQ SCH ×4 (08:00→21:33)
[2017-10-18] MEDS: HEPARIN SODIUM - SQ 10,000 UNITS/ML VIAL SQ SCH ×2 (09:00→21:31)
[2017-10-18] MEDS: INSULIN DETEMIR 100 UNITS/ML VIAL SQ SCH ×2 (09:00→21:32)
[2017-10-18] MEDS: SODIUM CHLORIDE 0.9% FLUSH 10 ML FLUSH IV FLUSH SCH ×2 (09:00→21:35)
[2017-10-18] MEDS: QUEtiapine FUMARATE 25 MG TAB PO SCH ×2 (09:00→21:21)
[2017-10-18] MEDS: amLODIPine BESYLATE 5 MG TAB PO SCH (09:44)
[2017-10-18] MEDS: PANTOPRAZOLE SOD 40 MG DELAYED RELEASE TAB PO SCH (09:45)
[2017-10-18] MEDS: ASPIRIN 325 MG TAB PO SCH (09:46)
[2017-10-18] MEDS: METOPROLOL TARTRATE 25 MG TAB PO SCH ×2 (09:47→21:21)
[2017-10-18] MEDS: DIGOXIN 0.125 MG TAB PO SCH (09:47)
--- NOTE | 2017-10-18 12:02 | HHI.FPPN ---
Subjective Remarks No acute events overnight. Afebrile, vitals stable. Patient seen and examined this morning. NAD. Sitting in chair eating breakfast. Able to answer most questions, denies any pain, fevers/chills, CP. Ambulating without issues. (Sukhjinder Hamilton MD R2) Objective Vitals Vital Signs Date Time Temp Pulse Resp B/P (MAP) Pulse Ox O2 Delivery O2 Flow Rate FiO2 10/18/17 08:00 97.4 90 20 102/50 (67) 95 10/18/17 04:00 72 10/18/17 04:00 97.7 78 18 107/62 (77) 100 10/18/17 00:00 97.9 106 18 136/64 (88) 100 10/17/17 20:10 97.2 89 18 109/63 (78) 100 10/17/17 20:00 Room Air 10/17/17 18:00 97.7 93 20 125/70 (88) 95 10/17/17 12:00 97.0 85 20 119/71 (87) 100 I/O 10/17/17 10/17/17 10/17/17 10/18/17 10/18/17 10/18/17 07:00 15:00 23:00 07:00 15:00 23:00 Intake Total 500 ml 480 ml 570 ml Output Total 750 ml 450 ml 900 ml Balance -250 ml 30 ml -330 ml Intake Oral 500 ml 480 ml 570 ml Output Urine Total 700 ml 450 ml 900 ml Stool Total 50 ml 0 ml (Sukhjinder Hamilton MD R2) Objective Remarks GENERAL: NAD, sitting in chair eating breakfast NEURO: Alert. Oriented to self, remains disoriented to place and time. Normal speech. sales service assistant grossly intact. Moving all extremities. SKIN: Warm and dry. No rashes or erythema. No trauma evident following fall. HEAD: Normocephalic. Atraumatic. EYES: EOMI. No scleral icterus. No injection or drainage. ENT: No nasal drainage. Moist mucous membranes. NECK: Supple, trachea midline. No JVD. CARDIOVASCULAR: Regular rate and rhythm without murmurs, rubs, or gallops. Peripheral pulses 2+. RESPIRATORY: Breath sounds clear to auscultation and equal bilaterally, without wheezes, rales, or rhonchi. No accessory muscle use. GASTROINTESTINAL: Abdomen soft, nontender, nondistended. No rebound tenderness. No guarding. Ostomy and urine output bag in place. MUSCULOSKELETAL: No lower extremity edema. (Sukhjinder Hamilton MD R2) A/P Assessment and Plan 67-year-old man with h/o dementia admitted under Nieto act, which has since been lifted, after reportedly displaying aggressive behavior towards his family. He has been managed for sepsis due to a UTI, anemia, chronic renal insufficiency. Discharge Planning Stable for discharge Anticipate discharge to SNF today 10/18, awaiting placement, case management assisting (Sukhjinder Hamilton MD R2) Attending Attestation Patient seen and examined. Case reviewed and discussed with the resident team. Agree with plan of care as discussed with me and documented in the resident note. (Shima Manzo MD) Problem List: (1) Sepsis ICD Codes: A41.9 - Sepsis, unspecified organism Status: Resolved Plan: Patient met criteria for sepsis on admission with elevated pulse and leukocytosis Source due to a urinary tract infection Lactate 0.8 Completed Levaquin 250mg PO q48h (renally dose) (10/06-10/16) Further plan as below (2) UTI (urinary tract infection) ICD Codes: N39.0 - Urinary tract infection, site not specified Status: Resolved Plan: Large leuk esterase, many bacteria, 138 WBC, no comment on squam cells Repeat UA reveal moderate leuk esterase, occ bacteria Urine culture growing > 100,000 col of both E. coli and Klebsiella, both pineda- sensitive Repeat urine culture from 10/07 growing > 100,000 col MRSA and E.faecalis Infectious disease consulted due to repeat urine culture growing MRSA > 100,000 col Completed Levaquin 250mg PO q48h (renally dose) (10/06-10/16) (3) Anemia ICD Codes: D64.9 - Anemia, unspecified Status: Chronic Plan: Consider acute GI bleed vs other acute blood loss anemia Hemoccult positive GI consulted EGD demonstrating class a esophagitis, erythematous moderate gastritis in the gastric antrum with biopsy performed, duodenal mucosa appeared normal Colonoscopy findings significant for internal and external hemorrhoids Continue Protonix 40 mg PO daily Hemoglobin stable (4) Acute on chronic renal insufficiency ICD Codes: N28.9 - Disorder of kidney and ureter, unspecified; N18.9 - Chronic kidney disease, unspecified Status: Chronic Plan: Cr 4.14 on admission, improving, baseline seems to be ~3.5 Possibly acute on chronic due to prerenal due to dehydration versus diabetic nephropathy vs intrinsic renal pathology, but urine specific gravity was 1.01 Avoid nephrotoxins as able Monitor I/Os UOP adequate Nephrology consulted, appreciated recommendations Renal ultrasound with nonvisualized left kidney potentially for technical reasons. 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 Low density area in the left lateral aspect of the spleen Abdomen US 10/08 low-density in the spleen, nonspecific (5) Dementia ICD Codes: F03.90 - Unspecified dementia without behavioral disturbance Status: Chronic Plan: Per discussion with Dr. Ragland, altered mental status from baseline may have been due to urosepsis Nieto act has been lifted Psychiatry consulted Continue Seroquel 50mg PO BID Ativan 1mg PO q4hr PRN agitation (6) Diabetes mellitus ICD Codes: E11.9 - Type 2 diabetes mellitus without complications Status: Chronic Plan: -Low dose ISS -Levemir 10 units BID (7) Nutrition, metabolism, and development symptoms ICD Codes: R63.8 - Other symptoms and signs concerning food and fluid intake Status: Acute Plan: Fluids: PO Electrolytes: WNL 10/13 Nutrition: Regular DVT ppx: Heparin 5,000 units sq q12h (Sukhjinder Hamilton MD R2) Problem Qualifiers (1) Dementia: Sukhjinder Hamilton MD R2 Oct 18, 2017 12:02 Shima Manzo MD Oct 18, 2017 16:05
[2017-10-18] MEDS: ACETAMINOPHEN 325 MG TAB PO PRN (15:58)
[2017-10-18] MEDS ORDERED: PANT40TA3 PO (16:07)
[2017-10-18] MEDS ORDERED: SERO25TA PO (16:07)
[2017-10-18] MEDS ORDERED: AMLO5 PO (16:07)
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
--- NOTE | 2017-10-18 16:08 | HHI.DCPOC ---
Discharge Care Plan Diagnosis: (1) UTI (urinary tract infection) (2) Acute on chronic renal insufficiency (3) Diabetes mellitus (4) Dementia (5) Anemia Goals to Promote Your Health * To prevent worsening of your condition and complications * To maintain your health at the optimal level Directions to Meet Your Goals Take your medications as prescribed Follow your dietary instruction Follow activity as directed Keep your appointments as scheduled Take your immunizations and boosters as scheduled If your symptoms worsen call your PCP, if no PCP go to Urgent Care Center or Emergency Room Smoking is Dangerous to Your Health. Avoid second hand smoke Call the 24-hour hour crisis hotline for domestic abuse at Bela Cortes MD R1 Oct 18, 2017 16:08
[2017-10-18] MEDS: LORazepam 0.5 MG TAB PO PRN (18:16)
[2017-10-19] VITALS: PULSE 80
[2017-10-19 00:18] VITALS: BP 100/53; PULSE 76; RESP 17; TEMP 97.2; O2SAT 99
[2017-10-19 04:00] VITALS: PULSE 71
[2017-10-19 05:25] VITALS: BP 102/51; PULSE 70; RESP 17; TEMP 97.1; O2SAT 99
[2017-10-19] MEDS: HEPARIN SODIUM - SQ 10,000 UNITS/ML VIAL SQ SCH (07:40)
[2017-10-19] MEDS: INSULIN DETEMIR 100 UNITS/ML VIAL SQ SCH (07:40)
[2017-10-19] MEDS: amLODIPine BESYLATE 5 MG TAB PO SCH (07:41)
[2017-10-19] MEDS: LORazepam 0.5 MG TAB PO PRN (07:41)
[2017-10-19] MEDS: QUEtiapine FUMARATE 25 MG TAB PO SCH (07:41)
[2017-10-19] MEDS: ASPIRIN 325 MG TAB PO SCH (07:41)
[2017-10-19] MEDS: METOPROLOL TARTRATE 25 MG TAB PO SCH (07:41)
[2017-10-19] MEDS: DIGOXIN 0.125 MG TAB PO SCH (07:42)
[2017-10-19] MEDS: PANTOPRAZOLE SOD 40 MG DELAYED RELEASE TAB PO SCH (07:42)
[2017-10-19] MEDS: INSULIN ASPART SUPPLEMENTAL SCALE SQ SCH ×2 (08:00→11:12)
[2017-10-19 08:09] VITALS: BP 132/62; PULSE 74; RESP 19; TEMP 98.1; O2SAT 98
[2017-10-19] MEDS: SODIUM CHLORIDE 0.9% FLUSH 10 ML FLUSH IV FLUSH SCH (09:00)
--- NOTE | 2017-10-19 11:41 | HHI.FPPN ---
Subjective Remarks No acute events overnight. Received 1mg PO Ativan around 07:41 this AM for agitation per chart review. Pt asleep in bed. Afebrile. VSS. (Bela Cortes MD R1) Objective Vitals Vital Signs Date Time Temp Pulse Resp B/P (MAP) Pulse Ox O2 Delivery O2 Flow Rate FiO2 10/19/17 08:09 98.1 74 19 132/62 (85) 98 10/19/17 08:00 Room Air 10/19/17 05:25 97.1 70 17 102/51 (68) 99 10/19/17 04:00 71 10/19/17 00:18 97.2 76 17 100/53 (69) 99 10/19/17 00:00 Room Air 10/19/17 00:00 80 10/18/17 20:03 76 10/18/17 20:00 Room Air 10/18/17 20:00 98.1 73 16 112/56 (74) 99 10/18/17 16:42 Room Air 10/18/17 16:00 97.0 89 20 112/66 (81) 97 10/18/17 12:00 97.0 83 20 118/65 (82) 99 I/O 10/18/17 10/18/17 10/18/17 10/19/17 10/19/17 10/19/17 07:00 15:00 23:00 07:00 15:00 23:00 Intake Total 570 ml 240 ml Output Total 900 ml 800 ml 575 ml 800 ml Balance -330 ml -800 ml -335 ml -800 ml Intake Oral 570 ml 240 ml Output Urine Total 900 ml 500 ml 575 ml 800 ml Stool Total 0 ml 300 ml 0 ml # Bowel Movements 1 (Bela Cortes MD R1) Objective Remarks GENERAL: NAD, asleep in bed NEURO: Alert. Oriented to self, remains disoriented to place and time. Normal speech. assistant commissioner grossly intact. Moving all extremities. SKIN: Warm and dry. No rashes or erythema. No trauma evident following fall. HEAD: Normocephalic. Atraumatic. EYES: EOMI. No scleral icterus. No injection or drainage. ENT: No nasal drainage. Moist mucous membranes. NECK: Supple, trachea midline. No JVD. CARDIOVASCULAR: Regular rate and rhythm without murmurs, rubs, or gallops. Peripheral pulses 2+. RESPIRATORY: Breath sounds clear to auscultation and equal bilaterally, without wheezes, rales, or rhonchi. No accessory muscle use. GASTROINTESTINAL: Abdomen soft, nontender, nondistended. No rebound tenderness. No guarding. Ostomy and urine output bag in place. MUSCULOSKELETAL: No lower extremity edema. (Bela Cortes MD R1) A/P Assessment and Plan 67-year-old man with h/o dementia admitted under Nieto act, which has since been lifted, after reportedly displaying aggressive behavior towards his family. He has been managed for sepsis due to a UTI, anemia, chronic renal insufficiency. Discharge Planning Stable for discharge Anticipate discharge to SNF ([facility]) today 10/19 (Bela Cortes MD R1) Attending Attestation Patient seen and examined. Case reviewed and discussed with the resident team. Agree with plan of care as discussed with me and documented in the resident note. (Shima Manzo MD) Problem List: (1) Sepsis ICD Codes: A41.9 - Sepsis, unspecified organism Status: Resolved Plan: Patient met criteria for sepsis on admission with elevated pulse and leukocytosis Source due to a urinary tract infection Lactate 0.8 Completed Levaquin 250mg PO q48h (renally dose) (10/06-10/16) Further plan as below (2) UTI (urinary tract infection) ICD Codes: N39.0 - Urinary tract infection, site not specified Status: Resolved Plan: Large leuk esterase, many bacteria, 138 WBC, no comment on squam cells Repeat UA reveal moderate leuk esterase, occ bacteria Urine culture growing > 100,000 col of both E. coli and Klebsiella, both pineda- sensitive Repeat urine culture from 10/07 growing > 100,000 col MRSA and E.faecalis Infectious disease consulted due to repeat urine culture growing MRSA > 100,000 col Completed Levaquin 250mg PO q48h (renally dose) (10/06-10/16) (3) Anemia ICD Codes: D64.9 - Anemia, unspecified Status: Chronic Plan: Consider acute GI bleed vs other acute blood loss anemia Hemoccult positive GI consulted EGD demonstrating class a esophagitis, erythematous moderate gastritis in the gastric antrum with biopsy performed, duodenal mucosa appeared normal Colonoscopy findings significant for internal and external hemorrhoids Continue Protonix 40 mg PO daily Hemoglobin stable (4) Acute on chronic renal insufficiency ICD Codes: N28.9 - Disorder of kidney and ureter, unspecified; N18.9 - Chronic kidney disease, unspecified Status: Chronic Plan: Cr 4.14 on admission, improving, baseline seems to be ~3.5 Possibly acute on chronic due to prerenal due to dehydration versus diabetic nephropathy vs intrinsic renal pathology, but urine specific gravity was 1.01 Avoid nephrotoxins as able Monitor I/Os UOP adequate Nephrology consulted, appreciated recommendations Renal ultrasound with nonvisualized left kidney potentially for technical reasons. 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 Low density area in the left lateral aspect of the spleen Abdomen US 10/08 low-density in the spleen, nonspecific (5) Dementia ICD Codes: F03.90 - Unspecified dementia without behavioral disturbance Status: Chronic Plan: Per discussion with Dr. Ragland, altered mental status from baseline may have been due to urosepsis Nieto act has been lifted Psychiatry consulted Continue Seroquel 50mg PO BID Ativan 1mg PO q4hr PRN agitation (6) Diabetes mellitus ICD Codes: E11.9 - Type 2 diabetes mellitus without complications Status: Chronic Plan: -Low dose ISS -Levemir 10 units BID (7) Nutrition, metabolism, and development symptoms ICD Codes: R63.8 - Other symptoms and signs concerning food and fluid intake Status: Acute Plan: Fluids: PO Electrolytes: WNL 10/13 Nutrition: Regular DVT ppx: Heparin 5,000 units sq q12h (Bela Cortes MD R1) Problem Qualifiers (1) Dementia: Bela Cortes MD R1 Oct 19, 2017 11:41 Shima Manzo MD Oct 19, 2017 12:35
== END 2017-10-19 13:29 | DRG 872 ==
LOC: NEPC 14:38 → NEDA 17:37 → OBSVTOIN 18:36 → N04B 19:05 → N04A 10-12 21:41
PROVIDERS: ADMIT Family Medicine; ATTEND Family Medicine
PROC: 0DB98ZX Excision of Duodenum, Via Natural or Artificial Opening Endoscopic, Diagnostic (ICD-10-PCS; principal; 2017-10-10 12:04)
PROC: 0DB78ZX Excision of Stomach, Pylorus, Via Natural or Artificial Opening Endoscopic, Diagnostic (ICD-10-PCS; 2017-10-10 12:04)
PROC: 0DB58ZX Excision of Esophagus, Via Natural or Artificial Opening Endoscopic, Diagnostic (ICD-10-PCS; 2017-10-10 12:04)
DX: A41.51 Sepsis due to Escherichia coli [E. coli] (principal); N17.9 Acute kidney failure, unspecified; E87.2 Acidosis; I13.0 Hypertensive heart and chronic kidney disease with heart failure and stage 1 through stage 4 chronic kidney disease, or unspecified chronic kidney disease; I50.9 Heart failure, unspecified; F05 Delirium due to known physiological condition; E87.1 Hypo-osmolality and hyponatremia; N39.0 Urinary tract infection, site not specified; I42.9 Cardiomyopathy, unspecified; F03.91 Unspecified dementia, unspecified severity, with behavioral disturbance; A41.4 Sepsis due to anaerobes; E11.22 Type 2 diabetes mellitus with diabetic chronic kidney disease; N18.9 Chronic kidney disease, unspecified; E87.5 Hyperkalemia; E87.8 Other disorders of electrolyte and fluid balance, not elsewhere classified; E87.6 Hypokalemia; K29.60 Other gastritis without bleeding; K21.0 Gastro-esophageal reflux disease with esophagitis; K64.8 Other hemorrhoids; D63.1 Anemia in chronic kidney disease; J44.9 Chronic obstructive pulmonary disease, unspecified; I25.2 Old myocardial infarction; E03.9 Hypothyroidism, unspecified; I25.10 Atherosclerotic heart disease of native coronary artery without angina pectoris; E86.0 Dehydration; G47.30 Sleep apnea, unspecified; F32.9 Major depressive disorder, single episode, unspecified; F41.9 Anxiety disorder, unspecified; Z78.1 Physical restraint status; Z79.4 Long term (current) use of insulin; Z85.51 Personal history of malignant neoplasm of bladder; Z87.891 Personal history of nicotine dependence; Z90.6 Acquired absence of other parts of urinary tract; Z93.3 Colostomy status; Z95.5 Presence of coronary angioplasty implant and graft
CPT/HCPCS: 71010; 74176; 76700; 76775; 76937; 80048; 80053; 80307; 81001; 82272; 82948; 83036; 83605; 83735; 83880; 84155; 85007; 85014; 85018; 85025; 85027; 85610; 86403; 86850; 86900; 86901; 87040; 87077; 87086; 87147; 87186; 88305; 88312; 93005; 93975; C9113; J1630; J1644; J1815; J1956; J2060; J2354; J2405; J3475; J3480; J7030; J7040; J7070